=== PATIENT | male | born 1980 | race African-American/Black ===

== ENCOUNTER 2018-05-23 11:52 | Inpatient (IN) | payer BC ==
[~2018-05-23] VITALS: Ht 188 cm; Wt 86.2 kg
[2018-05-23] MEDS ORDERED: NKM (12:17)
[2018-05-23 12:20] VITALS: BP 116/79
[2018-05-23] MEDS ORDERED: Piperacillin/Tazobactam 3.375 GM in NS 110 ML IVPB ONE (13:00)
--- NOTE | 2018-05-23 13:24 | Emergency Room Report ---
History of Present Illness General Chief Complaint: Skin Rash/Abscess Source: Patient Present Illness HPI Patient sense with worsening fullness redness and discharge from the buttock area Patient has had these symptoms before in the past however over the past few days the have appear to worsen Questionable low-grade fevers denies any chest pain or shortness of breath He feels that there are some areas involving the lower scrotal region as well Denies any focal weakness and eyes any neck pain or photophobia patient has seen significant discharge from the regions Allergies: Coded Allergies: VANCOMYCIN (Verified Adverse Reaction, Unknown, 05/23/18) breakouts and cheek Patient History Past Medical History: see triage record Pertinent Family History: none Reviewed Nursing Documentation: PMH: Agreed; PSxH: Agreed Nursing Documentation-PMH Past Medical History: No History, Except For Review of Systems All Other Systems: negative except mentioned in HPI Physical Exam Vital Signs Date Time Temp Pulse Resp B/P (MAP) Pulse Ox O2 Delivery O2 Flow Rate FiO2 05/23/18 12:10 97.9 99 18 116/79 98 Room Air 97.9 Sp02 EP Interpretation: reviewed, normal General Appearance: no apparent distress Head: normocephalic, atraumatic Eyes: bilateral eye PERRL, bilateral eye EOMI ENT: hearing grossly normal, normal pharynx, TMs + canals normal, uvula midline Neck: full range of motion, supple, no meningismus, no bony tend Respiratory: lungs clear, normal breath sounds, no rhonchi, no respiratory distress, no retraction, no accessory muscle use Cardiovascular #1: normal peripheral pulses, regular rate, rhythm, no edema, no gallop, no JVD, no murmur Gastrointestinal: normal bowel sounds, non tender, soft, no mass, no organomegaly, non-distended, no guarding, no hernia, no pulsatile mass, no rebound Genitourinary: no CVA tenderness Musculoskeletal: normal inspection Neurologic: oriented x3, responsive, press feeder broomcorn III-XII nml as tested, motor strength/ tone normal, sensory intact Psychiatric: mood/affect normal Skin: other - Significant areas of pustules and abscess formation bilateral buttock region, erythema and fluctuance palpable, there is some increased fullness radiating towards the lower testicular region as well Lymphatic: no adenopathy Medical Decision Making Diagnostic Impression: Primary Impression: Abscess Additional Impression: Cellulitis ER Course Patient has significant findings in the buttock area Evidence of increased fluctuance and abscess formations on multiple areas Increased erythema and discomfort on palpation Blood work is initiated with IV hydration and broad-spectrum antibiotics white blood cell count is elevated Patient requiring admission for further inpatient care and specialty consultation Labs Test 05/23/18 13:30 05/23/18 21:10 05/24/18 10:45 White Blood Count 15.2 K/UL (4.8-10.8) Red Blood Count 4.42 M/UL (4.70-6.10) Hemoglobin 10.0 G/DL (14.2-18.0) Hematocrit 32.8 % (42.0-52.0) Mean Corpuscular Volume 74 FL (80-99) Mean Corpuscular Hemoglobin 22.6 PG (27.0-31.0) Mean Corpuscular Hemoglobin Concent 30.5 G/DL (32.0-36.0) Red Cell Distribution Width 14.8 % (11.6-14.8) Platelet Count 546 K/UL (150-450) Mean Platelet Volume 5.0 FL (6.5-10.1) Neutrophils (%) (Auto) 70.0 % (45.0-75.0) Lymphocytes (%) (Auto) 16.6 % (20.0-45.0) Monocytes (%) (Auto) 6.7 % (1.0-10.0) Eosinophils (%) (Auto) 6.4 % (0.0-3.0) Basophils (%) (Auto) 0.4 % (0.0-2.0) Prothrombin Time 11.0 SEC (9.30-11.50) Prothromb Time International Ratio 1.0 (0.9-1.1) Activated Partial Thromboplast Time 26 SEC (23-33) Sodium Level 135 MMOL/L (136-145) Potassium Level 3.9 MMOL/L (3.5-5.1) Chloride Level 100 MMOL/L (98-107) Carbon Dioxide Level 30 MMOL/L (21-32) Anion Gap 5 mmol/L (5-15) Blood Urea Nitrogen 8 mg/dL (7-18) Creatinine 0.8 MG/DL (0.55-1.30) Estimat Glomerular Filtration Rate > 60 mL/min (>60) Glucose Level 86 MG/DL (74-106) Lactic Acid Level 1.70 mmol/L (0.4-2.0) Calcium Level 10.4 MG/DL (8.5-10.1) Urine Color Pale yellow Urine Appearance Clear Urine pH 8 (4.5-8.0) Urine Specific [place] 1.010 (1.005-1.035) Urine Protein Negative (NEGATIVE) Urine Glucose (UA) Negative (NEGATIVE) Urine Ketones Negative (NEGATIVE) Urine Blood Negative (NEGATIVE) Urine Nitrite Negative (NEGATIVE) Urine Bilirubin Negative (NEGATIVE) Urine Urobilinogen Normal MG/DL (0.0-1.0) Urine Leukocyte Esterase Negative (NEGATIVE) Urine RBC 0-2 /HPF (0 - 0) Urine WBC 0-2 /HPF (0 - 0) Urine Squamous Epithelial Cells Occasional /LPF Urine Bacteria None /HPF (NONE) Stool Occult Blood Negative (NEGATIVE) Rhythm Strip Diag. Results EP Interpretation: yes Rate: 67 Rhythm: NSR, no PVC's, no ectopy Last Vital Signs Date Time Temp Pulse Resp B/P (MAP) Pulse Ox O2 Delivery O2 Flow Rate FiO2 05/23/18 12:10 97.9 99 18 116/79 98 Room Air 97.9 Status: improved Disposition: ADMITTED INPATIENT Condition: Serious LarrychristinaWillis DO May 23, 2018 13:24
[2018-05-23 13:45] LABS: BASOPHILS % (AUTO) 0.4 % (0.0-2.0); EOSINOPHILS % (AUTO) 6.4 % (0.0-3.0); HEMATOCRIT 32.8 % (42.0-52.0); LYMPHOCYTES % (AUTO) 16.6 % (20.0-45.0); MEAN CORPUSCULAR VOLUME 74 FL (80-99); MONOCYTES % (AUTO) 6.7 % (1.0-10.0); PLATELET COUNT 546 K/UL (150-450); RED BLOOD COUNT 4.42 M/UL (4.70-6.10); RED CELL DISTRIBUTION WIDTH 14.8 % (11.6-14.8); WHITE BLOOD COUNT 15.2 K/UL (4.8-10.8)
[2018-05-23 13:54] LABS: ANION GAP 5 mmol/L (5-15); BLOOD UREA NITROGEN 8 mg/dL (7-18); CALCIUM 10.4 MG/DL (8.5-10.1); CARBON DIOXIDE 30 MMOL/L (21-32); CHLORIDE 100 MMOL/L (98-107); CREATININE 0.8 MG/DL (0.55-1.30); POTASSIUM 3.9 MMOL/L (3.5-5.1); SODIUM 135 MMOL/L (136-145)
[2018-05-23] MEDS ORDERED: Morphine Sulfate 4mg/ml Inj (IV USE ONLY) IVP ONE (14:00)
[2018-05-23 14:20] VITALS: BP 123/75
[2018-05-23 15:59] VITALS: BP 135/72
--- NOTE | 2018-05-23 16:01 | History and Physical ---
History of Present Illness General Date patient seen: May 23, 2018 Time patient seen: 13:45 Reason for Hospitalization: Skin Rash/Abscess Present Illness HPI 38 y/o man with no significant history presents to the ER for worsening rash, pain and discharge from gluteal area. He states that his rash is to his buttocks and groin near the scrotum but has been worsening in his gluteal region. He has noticed foul smelling yellow discharge from the area recently. +/ - fevers. + pain. Has been hospitalized for infections in the area in the past. Denies any periop or postop complications from the anesthesia. Reports being able to ambulate 4 blocks and a flight of stairs without any chest pain or SOB. Denies any cardiac history. Currently, denies chest pain, sob, f/c, d/c, abdominal pain, n/v. Denies alcohol, tobacco or illicit drug use. PMH:Gluteal abscess/infection PSxH: None Social Hx: lives at home w/ family. denies alcohol, tobacco, or illicit drug use Family Hx: reviewed by me; not pertinent for this encounter Allergies: Coded Allergies: VANCOMYCIN (Verified Adverse Reaction, Unknown, 05/23/18) breakouts and cheek Medication History Scheduled No Known Medications* (NKM - No Known Medications*), 0 ., (Reported) Patient History History Provided By: Patient Healthcare decision maker Resuscitation status Advanced Directive on File Review of Systems Constitutional: Reports: weakness Eye: Reports: no symptoms ENT: Reports: no symptoms Respiratory: Reports: no symptoms Cardiovascular: Reports: no symptoms Gastrointestinal: Reports: other Genitourinary: Reports: no symptoms Musculoskeletal: Reports: no symptoms Skin: Reports: rash, change in color, lesions Psychiatric: Reports: no symptoms Neurological: Reports: no symptoms Endocrine: Reports: no symptoms Hematologic/Lymphatic: Reports: no symptoms All Other Systems: negative except mentioned in HPI ROS Narrative gluteal pain Physical Exam General Appearance: no apparent distress, alert, thin Lines, tubes and drains: peripheral HEENT: normocephalic, atraumatic, anicteric, EOMI Neck: non-tender Respiratory/Chest: lungs clear Breasts: no masses Cardiovascular/Chest: normal peripheral pulses, normal rate, regular rhythm Abdomen: normal bowel sounds, soft Genitourinary/Rectal: other - intragluteal cleft area with open wounds with foul smelling yellow purelent drainage and surrounding erythema; + tenderness Extremities: normal range of motion Skin Exam: normal pigmentation, warm/dry 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 grossly normal, alert, oriented x 3 Lymphatic: anterior cervical, posterior cervical (L) Musculoskeletal: normal muscle bulk Last 24 Hour Vital Signs Date Time Temp Pulse Resp B/P (MAP) Pulse Ox O2 Delivery O2 Flow Rate FiO2 05/23/18 14:20 98.0 78 15 123/75 100 Room Air 98.0 05/23/18 12:20 97.9 18 116/79 98 Room Air 97.9 05/23/18 12:10 97.9 99 18 116/79 98 Room Air 97.9 Laboratory Tests Test 05/23/18 13:30 White Blood Count 15.2 K/UL (4.8-10.8) H Red Blood Count 4.42 M/UL (4.70-6.10) L Hemoglobin 10.0 G/DL (14.2-18.0) L Hematocrit 32.8 % (42.0-52.0) L Mean Corpuscular Volume 74 FL (80-99) L Mean Corpuscular Hemoglobin 22.6 PG (27.0-31.0) L Mean Corpuscular Hemoglobin Concent 30.5 G/DL (32.0-36.0) L Red Cell Distribution Width 14.8 % (11.6-14.8) Platelet Count 546 K/UL (150-450) H Mean Platelet Volume 5.0 FL (6.5-10.1) L Neutrophils (%) (Auto) 70.0 % (45.0-75.0) Lymphocytes (%) (Auto) 16.6 % (20.0-45.0) L Monocytes (%) (Auto) 6.7 % (1.0-10.0) Eosinophils (%) (Auto) 6.4 % (0.0-3.0) H Basophils (%) (Auto) 0.4 % (0.0-2.0) Prothrombin Time 11.0 SEC (9.30-11.50) Prothromb Time International Ratio 1.0 (0.9-1.1) Activated Partial Thromboplast Time 26 SEC (23-33) Sodium Level 135 MMOL/L (136-145) L Potassium Level 3.9 MMOL/L (3.5-5.1) Chloride Level 100 MMOL/L (98-107) Carbon Dioxide Level 30 MMOL/L (21-32) Anion Gap 5 mmol/L (5-15) Blood Urea Nitrogen 8 mg/dL (7-18) Creatinine 0.8 MG/DL (0.55-1.30) Estimat Glomerular Filtration Rate > 60 mL/min (>60) Glucose Level 86 MG/DL (74-106) Lactic Acid Level 1.70 mmol/L (0.4-2.0) Calcium Level 10.4 MG/DL (8.5-10.1) H Height (Feet): 6 Height (Inches): 2.00 Weight (Pounds): 172 Assessment/Plan Status: not improved, hypovolemia Assessment/Plan (1) Hidradenitis Gluteal abscess/infection/cellulitis open wound, draining purulent fluid signs of infection on labs (leukocytosis) Lactic acid slightly elevated 2) Anemia Unclear etiology check iron studies 3)Hyponatremia Likely secondary to hypovolemia IVF's Assessment/Plan - Admit to inpatient - Plastic surgery, Dr. Dixon, consulted - EKG pending - CXR pending - CBC, CMP, coags reviewed - Zosyn ordered in ER- will continue - IVF'a given signs of dehydration on labs (hyponatremia, hemoconcentration) - NPO after midnight - DVT ppx: SCDs - Full Code If patient is required to have surgery, based on the patient's medical history, and other available ancillary data, the patient is a LOW risk for an INTERMEDIATE risk procedure. Per the most recent ACC/AHA guidelines, the patient does not need any further cardiopulmonary testing prior to the procedure and there do not appear to be any clear medical contraindications to proceeding with the proposed procedure. Dispo: Once the patient is stable to the leave the hospital, I anticipate the patient will likely be discharged to the following environment: home with I spent 72 minutes on this patient's case, and 42 minutes were dedicated to counseling and/or care coordination. Discussed with patient, nursing staff, SW/ CM, surgery, and ER physician regarding clinical status, treatment course, and disposition planning. Duke Lovell M.D. May 23, 2018 16:01
[2018-05-23 16:18] VITALS: BP 129/78
[2018-05-23] MEDS ORDERED: Norco 5mg/325mg tab ORAL PRN (17:57)
[2018-05-23] MEDS ORDERED: Morphine Sulfate 2mg/ml Inj IVP PRN (17:57)
[2018-05-23] MEDS: Piperacillin/Tazobactam 3.375 GM in NS 110 ML IVPB SCH (19:56)
[2018-05-23 20:00] VITALS: BP 148/72
[2018-05-23 21:38] LABS: APPEARANCE,URINE CLEAR; BILIRUBIN, URINE NEGATIVE (NEGATIVE); COLOR,URINE PALE YELLOW; GLUCOSE, URINE (UA) NEGATIVE (NEGATIVE); KETONES,URINE NEGATIVE (NEGATIVE); LEUKOCYTE ESTERASE ,URINE NEGATIVE (NEGATIVE); NITRITE,URINE NEGATIVE (NEGATIVE); PH,URINE 8 (4.5-8.0); PROTEIN,URINE NEGATIVE (NEGATIVE); UROBILINOGEN,URINE NORMAL MG/DL (0.0-1.0)
[2018-05-24] VITALS (15 sets, daily range): BP systolic 98–132; BP diastolic 51–85
[2018-05-24] MEDS: Piperacillin/Tazobactam 3.375 GM in NS 110 ML IVPB SCH ×3 (04:25→20:32)
--- NOTE | 2018-05-24 12:35 | Pre-Procedure Note/Attestation ---
Pre-Procedure Note/Attestation Complete Prior to Procedure Planned Procedure: bilateral Procedure Narrative: Bilateral groin, buttock, and scrotal debridement with flap elevation Attestation I attest that I discussed the nature of the procedure; its benefits; risks and complications; and alternatives (and the risks and benefits of such alternatives ), prior to the procedure, with the patient (or the patient's legal senior human resources representative). I attest that, if there was a reasonable possibility of needing a blood transfusion, the patient (or the patient's legal senior human resources representative) was given the [facility] standardized written summary, pursuant to the Connor [place]kar[place] Blood Safety Act ([place] Health and Safety Code # 1645, as amended). I attest that I re-evaluated the patient just prior to the surgery and that there has been no change in the patient's H&P, except as documented below: RENEA MAYS May 24, 2018 12:35
[2018-05-24] MEDS ORDERED: Zemuron 50mg/5ml Inj IV ONE (12:45)
[2018-05-24] MEDS ORDERED: fentaNYL 100 mcg/2 mL IV ONE (12:48)
[2018-05-24] MEDS ORDERED: Propofol 200mg/20ml IV ONE (12:48)
[2018-05-24] MEDS ORDERED: Midazolam 2mg/2ml Inj ONE (12:48)
[2018-05-24] MEDS ORDERED: Lidocaine 1% MPF 10mg/ml 5ml ONE (12:48)
--- NOTE | 2018-05-24 12:55 | Anethesia Preoperative Eval ---
Anesthesia Pre-op PMH/ROS General Date of Evaluation: May 24, 2018 Anesthesiologist: Cedric ASA Score: ASA 2 Mallampati Score Class I : Soft palate, uvula, fauces, pillars visible Class II: Soft palate, uvula, fauces visible Class III: Soft palate, base of uvula visible Class IV: Only hard plate visible Mallampati Classification: Class I Surgeon: Zack Diagnosis: HS Surgical Procedure: Bilateral groin I&D Anesthesia History: none Family History: no anesthesia problems Allergies: Coded Allergies: VANCOMYCIN (Verified Adverse Reaction, Unknown, 05/23/18) breakouts and cheek Medications: see eMAR Past Medical History Cardiovascular: Denies: HTN, CAD, [place], valve dz, arrhythmia, other Pulmonary: Denies: asthma, COPD, CHETAN, other Gastrointestinal/Genitourinary: Denies: GERD, CRI, ESRD, other Neurologic/Psychiatric: Denies: dementia, CVA, depression/anxiety, TIA, other Endocrine: Denies: DM, hypothyroidism, steroids, other HEENT: Denies: cataract (L), cataract (R), glaucoma, HUGHES (L), HUGHES (R), other Hematology/Immune: Denies: anemia, DVT, bleeding disorder, other Musculoskeletal/Integumentary: Denies: OA, RA, DJD, DDD, edema, other PSxH Narrative: multiple I&Ds Anesthesia Pre-op Phys. Exam Physician Exam Last Vital Signs Date Time Temp Pulse Resp B/P (MAP) Pulse Ox O2 Delivery O2 Flow Rate FiO2 05/24/18 12:29 98.1 68 18 108/57 (74) 97 98.1 05/24/18 09:00 Room Air Constitutional: NAD Cardiovascular: RRR Respiratory: CTA Airway Exam Mallampati Score: Class I MO: full ROM: full Teeth: intact Anesthesia Pre-op A/P Labs Hematology Test 05/23/18 13:30 White Blood Count 15.2 K/UL (4.8-10.8) H Red Blood Count 4.42 M/UL (4.70-6.10) L Hemoglobin 10.0 G/DL (14.2-18.0) L Hematocrit 32.8 % (42.0-52.0) L Mean Corpuscular Volume 74 FL (80-99) L Mean Corpuscular Hemoglobin 22.6 PG (27.0-31.0) L Mean Corpuscular Hemoglobin Concent 30.5 G/DL (32.0-36.0) L Red Cell Distribution Width 14.8 % (11.6-14.8) Platelet Count 546 K/UL (150-450) H Mean Platelet Volume 5.0 FL (6.5-10.1) L Neutrophils (%) (Auto) 70.0 % (45.0-75.0) Lymphocytes (%) (Auto) 16.6 % (20.0-45.0) L Monocytes (%) (Auto) 6.7 % (1.0-10.0) Eosinophils (%) (Auto) 6.4 % (0.0-3.0) H Basophils (%) (Auto) 0.4 % (0.0-2.0) Coagulation Test 05/23/18 13:30 Prothrombin Time 11.0 SEC (9.30-11.50) Prothromb Time International Ratio 1.0 (0.9-1.1) Activated Partial Thromboplast Time 26 SEC (23-33) Chemistry Test 05/23/18 13:30 Sodium Level 135 MMOL/L (136-145) L Potassium Level 3.9 MMOL/L (3.5-5.1) Chloride Level 100 MMOL/L (98-107) Carbon Dioxide Level 30 MMOL/L (21-32) Anion Gap 5 mmol/L (5-15) Blood Urea Nitrogen 8 mg/dL (7-18) Creatinine 0.8 MG/DL (0.55-1.30) Estimat Glomerular Filtration Rate > 60 mL/min (>60) Glucose Level 86 MG/DL (74-106) Lactic Acid Level 1.70 mmol/L (0.4-2.0) Calcium Level 10.4 MG/DL (8.5-10.1) H Risk Assessment & Plan Assessment: ASA II Plan: GA Status Change Before Surgery: No Pre-Antibiotics Drug: Marina Hutchison MD May 24, 2018 12:55
[2018-05-24] MEDS ORDERED: LR 1000ml 1,000 ML IVLG SCH (12:57)
[2018-05-24] MEDS ORDERED: NeoSporin Gu Irrig 1ml Amp IRRIG ONE (12:58)
[2018-05-24] MEDS ORDERED: Lidocaine 1% 10mg/ml/Epi 0.005mg/ml 30ml vial INJ ONE (12:58)
[2018-05-24] MEDS ORDERED: Bacitracin 50000 Units Vial ONE (12:58)
[2018-05-24] MEDS ORDERED: Sterile Water Irrig 1000ml IRRIG ONE (13:00)
[2018-05-24] MEDS ORDERED: fentaNYL 100 mcg/2 mL IV PRN (13:00)
[2018-05-24] MEDS ORDERED: LR 1000ml ONE (13:00)
[2018-05-24] MEDS ORDERED: Midazolam 2mg/2ml Inj IVP PRN (13:00)
[2018-05-24] MEDS ORDERED: Labetalol 5mg/ml 20ml vial IV PRN (13:00)
[2018-05-24] MEDS ORDERED: NS Irrig 1000ml ONE (13:00)
[2018-05-24] MEDS ORDERED: Hydromorphone 0.5mg/0.5ml inj IVP PRN (13:00)
[2018-05-24] MEDS ORDERED: LORazepam Inj 2mg/ml 1ml IV PRN (13:00)
[2018-05-24] MEDS ORDERED: DiphenhydrAMINE 50mg/ml Inj IVP PRN (13:00)
[2018-05-24] MEDS ORDERED: Lidocaine 1% 10mg/ml/EPI 0.01mg/ml 50ml INJ ONE (14:14)
[2018-05-24] MEDS ORDERED: Surgicel 4in x 8in TOPIC ONE (14:15)
[2018-05-24] MEDS ORDERED: PCA HYDROmorphone 1mg/ml 30 ML IV PRN (14:30)
--- NOTE | 2018-05-24 15:08 | Immediate Post-Op Evaluation ---
Immediate Post-Op Evalulation Immediate Post-Op Evalulation Procedure: Stage 1 debreiedment of bilateral groin wound Date of Evaluation: May 24, 2018 Time of Evaluation: 15:09 IV Fluids: 1.4L Blood Products: 0 Estimated Blood Loss: min Urinary Output: 0 Blood Pressure Systolic: 109 Blood Pressure Diastolic: 62 Pulse Rate: 84 Respiratory Rate: 16 O2 Sat by Pulse Oximetry: 100 Temperature (Fahrenheit): 97 Pain Score (1-10): 0 Nausea: No Vomiting: No Complications 0 Patient Status: awake, reacts, patent, none Hydration Status: adequate Drug: zosyn Given Within 1 Hr of Incision: Yes Marina Madrid MD May 24, 2018 15:08
--- NOTE | 2018-05-24 17:54 | General Progress Note ---
Assessment/Plan Status: not improved, unchanged Status Narrative 38 yo man with hidradenitis and gluteal/scrotal abscesses with signs of systemic infection Assessment/Plan (1) Hidradenitis Gluteal abscess/infection/cellulitis open wound, draining purulent fluid signs of infection on labs (leukocytosis) Lactic acid slightly elevated Plastic surgery evaluation appreciated- to OR today for debridement of infected wounds/gluteal abscess continue broad spectrum IV antibiotics Aggressive IVF's Pain control 2) Anemia, mild, microcytic Unclear etiology check iron studies follow postop 3)Hyponatremia Likely secondary to hypovolemia IVF's 4) Preoperative clearance -clear for OR -EKG reviewed and unremarkable -see H&P for full details DVT Prophylaxis: scd's Code status: full Hospital Classification declaration: Based on this initial evaluation, and depending on the patient's clinical course, I anticipate that this patient will require hospitalization for 2-3 days. Disposition: Once the patient is stable to leave the hospital, I anticipate the patient will likely be discharged to the following environment:Home with HH I spent 45 minutes on this patient's case, and 23 minutes was dedicated to counseling and/or care coordination. Time of note may not reflect time of encounter. Subjective Date patient seen: May 24, 2018 Time patient seen: 15:22 ROS Limited/Unobtainable: No Constitutional: Reports: no symptoms HEENT: Reports: no symptoms Cardiovascular: Reports: no symptoms Respiratory: Reports: no symptoms Gastrointestinal/Abdominal: Reports: no symptoms Genitourinary: Reports: no symptoms Neurologic/Psychiatric: Reports: no symptoms Endocrine: Reports: no symptoms Hematologic/Lymphatic: Reports: no symptoms Allergies: Coded Allergies: VANCOMYCIN (Verified Adverse Reaction, Unknown, 05/23/18) breakouts and cheek All Systems: reviewed and negative except above Subjective Events of overnight noted Chart reviewed Patient NPO for OR today No complaints Objective Last 24 Hour Vital Signs Date Time Temp Pulse Resp B/P (MAP) Pulse Ox O2 Delivery O2 Flow Rate FiO2 05/24/18 17:00 96.4 72 18 120/68 (85) 98 96.4 05/24/18 16:26 98.0 76 14 127/62 100 Nasal Cannula 3 98.0 05/24/18 16:20 77 15 127/64 100 Nasal Cannula 3 05/24/18 16:20 19 05/24/18 16:05 16 05/24/18 16:05 97.0 05/24/18 16:05 74 16 117/70 100 Nasal Cannula 3 05/24/18 15:50 18 05/24/18 15:50 86 15 118/72 100 Nasal Cannula 3 05/24/18 15:35 86 18 126/73 100 Nasal Cannula 3 05/24/18 15:35 18 05/24/18 15:25 81 15 121/81 100 Nasal Cannula 3 05/24/18 15:14 84 19 132/85 100 Nasal Cannula 3 05/24/18 15:09 90 13 114/72 100 Simple Mask 6 05/24/18 15:08 206.6 84 16 100 05/24/18 15:04 97.0 84 16 109/62 100 Simple Mask 6 97.0 05/24/18 12:29 98.1 68 18 108/57 (74) 97 98.1 05/24/18 09:00 Room Air 05/24/18 08:38 97.9 72 18 98/51 (67) 98 97.9 05/24/18 04:00 98.2 71 18 121/63 (82) 100 98.2 05/24/18 00:00 97.7 69 19 124/61 (82) 98 97.7 05/23/18 21:00 Room Air 05/23/18 20:00 97.9 78 16 148/72 (97) 100 97.9 Intake and Output 05/23/18 05/24/18 19:00 07:00 Intake Total 1350 ml 1422.5 ml Output Total 1000 ml Balance 1350 ml 422.5 ml Intake Oral 240 ml 480 ml IV Total 1110 ml 942.5 ml Output Urine Total 1000 ml # Voids 1 Laboratory Tests 05/23/18 21:10: Urine Color Pale yellow, Urine Appearance Clear, Urine pH 8, Urine Specific [place] 1.010, Urine Protein Negative, Urine Glucose (UA) Negative, Urine Ketones Negative, Urine Blood Negative, Urine Nitrite Negative, Urine Bilirubin Negative, Urine Urobilinogen Normal, Urine Leukocyte Esterase Negative, Urine RBC 0-2H, Urine WBC 0-2, Urine Squamous Epithelial Cells Occasional, Urine Bacteria None 05/24/18 10:45: Stool Occult Blood Negative Height (Feet): 6 Height (Inches): 2.00 Weight (Pounds): 172 General Appearance: WD/WN, no apparent distress, thin EENT: PERRL/EOMI, normal ENT inspection Neck: non-tender, supple Cardiovascular: normal peripheral pulses, normal rate Respiratory/Chest: chest wall non-tender, lungs clear Abdomen: soft Pelvis: lesions Genitourinary/Rectal: other - open wounds in gluteal cleft, draining purulent fluid Edema: no edema noted Arm (L), no edema noted Arm (R), no edema noted Leg (L), no edema noted Leg (R), no edema noted Pedal (L), no edema noted Pedal (R) Neurologic: alert, oriented x 3 Duke Lovell M.D. May 24, 2018 17:54
[2018-05-24] MEDS ORDERED: Rate Change PCA 1 Each MISC PRN (18:00)
--- NOTE | 2018-05-24 18:30 | Consultation ---
DATE OF CONSULTATION: 05/24/2018 CONSULTING PHYSICIAN: Miguel Dixon M.D. ADMITTING PHYSICIAN: Duke Lovell M.D. HISTORY OF PRESENT ILLNESS: This is a 38-year-old male, admitted to the emergency room for an extreme pain and drainage with tenderness from his bilateral gluteal and groin region secondary to infected hidradenitis. The patient was admitted, started on IV antibiotics, was noted to have a leukocytosis and needs to be seen in consultation for surgical treatment. PAST MEDICAL HISTORY: Significant for hidradenitis. PAST SURGICAL HISTORY: None. ALLERGIES: Include vancomycin. MEDICATIONS: None. PHYSICAL EXAMINATION: GENERAL: The patient is alert and oriented. HEART: Regular rhythm. ABDOMEN: Soft, nontender, and nondistended. The patient is in mild discomfort secondary to multiple abscesses in his bilateral groin and buttock region extending to the pilonidal region in the lower sacrum. He also has an abscess in his scrotum. LABORATORY AND DIAGNOSTIC DATA: WBC is 15.4. ASSESSMENT AND PLAN: This is a 38-year-old male with advanced hidradenitis with leukocytosis. He will require a staged approach with first radical debridement of the infected tissue followed by several days of IV antibiotics and open wound care and that would then be followed by wound covered with flap advancement closure of his wounds. He understands the plan and agrees to proceed. Miguel Dixon M.D. DR: BRANDON JOB#: [id number] CC:
--- NOTE | 2018-05-24 18:44 | Cardiology Report ---
APPROVED REPORT EKG Measurement Heart [id number] Normal sinus rhythm Normal ECG
--- NOTE | 2018-05-24 18:45 | Operative Note - Dictated ---
DATE OF OPERATION: 05/24/2018 PREOPERATIVE DIAGNOSIS: Bilateral groin lower buttock infected hidradenitis and infected scrotal base hidradenitis. POSTOPERATIVE DIAGNOSIS: Bilateral groin lower buttock infected hidradenitis and infected scrotal base hidradenitis. PROCEDURES: 1. Radical excision of left groin infected hidradenitis tissue. 2. Radical excision of right groin infected hidradenitis tissue. 3. Radical excision of inferior scrotal base infected hidradenitis tissue. 4. Medial thigh flap elevation for staged closure of left groin wound. 5. Medial thigh flap elevation for staged closure of right groin wound. 6. Scrotal flap elevation for staged closure of scrotal base wound. SURGEON: Miguel Dixon M.D. ELECTRICAL DESIGN TECHNOLOGIST: Areli Aragon M.D. ANESTHESIA: General. COMPLICATIONS: None. ESTIMATED BLOOD LOSS: Approximately 100 mL. DRAINS: None. SPECIMEN: Included 4 different specimens from the bilateral groin and scrotal base region. DISPOSITION: Stable to the recovery room. INDICATIONS FOR SURGERY: This is a 38-year-old, -[place] male, admitted for intractable pain and drainage from his perineal and groin region secondary to infected hidradenitis suppurativa. On admission, he had a leukocytosis with a white count of nearly 16. He was started on IV antibiotics and upon evaluation by me, I felt that he was an appropriate candidate for radical excision with a staged treatment of debridement followed by reconstruction as a separate operation. He understood the risks and benefits of surgery and agreed to proceed. DETAILS OF THE OPERATION: The patient was brought to the operating room and laid in the lithotomy position on the operating table. His bilateral groin, perineal and lower abdominal regions were prepped and draped in a sterile usual fashion. Preoperatively, the patient areas of were marked out with a surgical marking pen to include both groin and scrotal base areas and once this was done, we first began on the left groin by using a #10 blade to make the incision to radically excise the tissue all the way circumferentially using the knife and electrocautery was then used to radically remove the tissue down to the level of the adductor fascia. With the specimen removed, the wound that resulted was approximately 18 x 10 cm and clearly not amenable to primary closure. As such, the decision was taken to perform a medial thigh flap elevation for staged closure of the wound. The medial thigh flap was elevated based off of the perforators of the superficial femoral artery. Elevation was performed above the level of the adductor fascia with proximal and distal incisions made to fully mobilize the flap. In a similar fashion, the contralateral groin was approached with a #10 blade used to make the skin incision and electrocautery was then used to complete the radical incision all the way down the level of the adductor fascia, this resulted in a larger defect of approximately 22 x 11 cm and again clearly not amenable to primary closure. As such, a medial thigh flap was done on the other side was elevated on the right side as well with perforators off the superficial femoral artery perfusing this flap. Proximal and distal incisions were also made to fully mobilize the flap and the flap was elevated above the adductor fascia. Following this, we then proceeded to identify both testicles, protected them from the surgical knife and a #10 blade was then used to excise the area of infected hidradenitis within the scrotal base, this resulted in a defect that measured approximately 8 x 8 cm and also required elevation of a superior scrotal flap to allow for a tension-free repair. The scrotal flap was elevated just above the level of the tunica albuginea and it was noted that upon full elevation of the flap, the scrotal wound could be closed without any tension. Given the patient's leukocytosis, the amount of infection present in the surgical wound bed, of note, I shall also mention, we did come across a significant amount of pus within the wound. We felt that it would not be appropriate to perform definitive closure of the wound at this time. The patient will be continued on IV antibiotics. We will get dressing changes at the bedside with wet-to-dry dressings over the next 72 hours and will be brought back to the operating room on for closure of the scrotal wounds with scrotal flap and groin wounds will most likely be closed with a combination of medial thigh flap advancement and possible skin graft for the lower base by the buttock region, which may be necessary. We will have a discussion with the patient regarding these options and proceed based on that. Miguel Dixon M.D. DR: BRANDON JOB#: [id number] CC:
--- NOTE | 2018-05-24 18:47 | Cardiology Report ---
APPROVED REPORT EKG Measurement Heart [id number] Normal sinus rhythm Rightward axis Borderline ECG
[2018-05-24] MEDS: PCA shift volume MISC SCH (19:00)
[2018-05-24] MEDS ORDERED: PCA Education Pamphlet MISC ONE (20:00)
[2018-05-24] MEDS: Heparin 5000 units/ml inj SUBQ SCH (20:32)
[2018-05-24] MEDS ORDERED: Zolpidem 5mg tab ORAL PRN (21:00)
[2018-05-25] MEDS: Piperacillin/Tazobactam 3.375 GM in NS 110 ML IVPB SCH ×3 (03:58→20:27)
[2018-05-25 04:16] VITALS: BP 109/59
[2018-05-25] MEDS: PCA shift volume MISC SCH ×2 (07:12→19:00)
[2018-05-25 08:00] VITALS: BP 121/63
[2018-05-25] MEDS: Heparin 5000 units/ml inj SUBQ SCH ×2 (08:11→20:31)
--- NOTE | 2018-05-25 08:51 | Consultation ---
Consult Note Consult Note Hematology Consult Date patient seen: May 24, 2018 Time patient seen: 13:45 Reason for Hospitalization: Skin Rash/Abscess RFC: eval of anemia and leukoecytosis Present Illness HPI 38 y/o man with no significant history presents to the ER for worsening rash, pain and discharge from gluteal area. He states that his rash is to his buttocks and groin near the scrotum but has been worsening in his gluteal region. He has noticed foul smelling yellow discharge from the area recently. +/ - fevers. + pain. Has been hospitalized for infections in the area in the past. Denies any periop or postop complications from the anesthesia. Reports being able to ambulate 4 blocks and a flight of stairs without any chest pain or SOB. Denies any cardiac history. Currently, denies chest pain, sob, f/c, d/c, abdominal pain, n/v. Denies alcohol, tobacco or illicit drug use. Noted to have a high wbc and anemia and heme consulted. PMH:Gluteal abscess/infection PSxH: None Social Hx: lives at home w/ family. denies alcohol, tobacco, or illicit drug use Family Hx: reviewed by me; not pertinent for this encounter Allergies: Coded Allergies: VANCOMYCIN (Verified Adverse Reaction, Unknown, 05/23/18) breakouts and cheek Medication History Scheduled No Known Medications* (NKM - No Known Medications*), 0 ., (Reported) Resuscitation status Advanced Directive on File Review of Systems Constitutional: Reports: weakness Eye: Reports: no symptoms ENT: Reports: no symptoms Respiratory: Reports: no symptoms Cardiovascular: Reports: no symptoms Gastrointestinal: Reports: other Genitourinary: Reports: no symptoms Musculoskeletal: Reports: no symptoms Skin: Reports: rash, change in color, lesions Psychiatric: Reports: no symptoms Neurological: Reports: no symptoms Endocrine: Reports: no symptoms Hematologic/Lymphatic: Reports: no symptoms All Other Systems: negative except mentioned in HPI ROS Narrative gluteal pain Physical Exam General Appearance: no apparent distress, alert, thin Lines, tubes and drains: peripheral HEENT: normocephalic, atraumatic, anicteric, EOMI Neck: non-tender Respiratory/Chest: lungs clear Breasts: no masses Cardiovascular/Chest: normal peripheral pulses, normal rate, regular rhythm Abdomen: normal bowel sounds, soft Genitourinary/Rectal: other - intragluteal cleft area with open wounds with foul smelling yellow purelent drainage and surrounding erythema; + tenderness Extremities: normal range of motion Skin Exam: normal pigmentation, warm/dry Neurologic: home health provider II-XII grossly normal, alert, oriented x 3 Lymphatic: anterior cervical, posterior cervical (L) Musculoskeletal: normal muscle bulk Last 24 Hour Vital Signs Date Time Temp Pulse Resp B/P (MAP) Pulse Ox O2 Delivery O2 Flow Rate FiO2 05/25/18 08:27 Room Air 05/25/18 08:00 99.3 84 18 121/63 (82) 100 99.3 05/25/18 08:00 18 05/25/18 04:16 98.4 90 18 109/59 (76) 99 98.4 05/25/18 04:00 18 05/25/18 00:00 16 05/24/18 21:00 Room Air 05/24/18 20:14 97.2 84 18 115/66 (82) 100 97.2 05/24/18 20:00 18 05/24/18 17:00 96.4 72 18 120/68 (85) 98 96.4 05/24/18 16:26 98.0 76 14 127/62 100 Nasal Cannula 3 98.0 05/24/18 16:20 77 15 127/64 100 Nasal Cannula 3 05/24/18 16:20 19 05/24/18 16:05 16 05/24/18 16:05 97.0 05/24/18 16:05 74 16 117/70 100 Nasal Cannula 3 05/24/18 15:50 18 05/24/18 15:50 86 15 118/72 100 Nasal Cannula 3 05/24/18 15:35 86 18 126/73 100 Nasal Cannula 3 05/24/18 15:35 18 05/24/18 15:25 81 15 121/81 100 Nasal Cannula 3 05/24/18 15:14 84 19 132/85 100 Nasal Cannula 3 05/24/18 15:09 90 13 114/72 100 Simple Mask 6 05/24/18 15:08 206.6 84 16 100 05/24/18 15:04 97.0 84 16 109/62 100 Simple Mask 6 97.0 05/24/18 12:29 98.1 68 18 108/57 (74) 97 98.1 05/24/18 09:00 Room Air Laboratory Tests Test 05/23/18 13:30 White Blood Count 15.2 K/UL (4.8-10.8) H Red Blood Count 4.42 M/UL (4.70-6.10) L Hemoglobin 10.0 G/DL (14.2-18.0) L Hematocrit 32.8 % (42.0-52.0) L Mean Corpuscular Volume 74 FL (80-99) L Mean Corpuscular Hemoglobin 22.6 PG (27.0-31.0) L Mean Corpuscular Hemoglobin Concent 30.5 G/DL (32.0-36.0) L Red Cell Distribution Width 14.8 % (11.6-14.8) Platelet Count 546 K/UL (150-450) H Mean Platelet Volume 5.0 FL (6.5-10.1) L Neutrophils (%) (Auto) 70.0 % (45.0-75.0) Lymphocytes (%) (Auto) 16.6 % (20.0-45.0) L Monocytes (%) (Auto) 6.7 % (1.0-10.0) Eosinophils (%) (Auto) 6.4 % (0.0-3.0) H Basophils (%) (Auto) 0.4 % (0.0-2.0) Prothrombin Time 11.0 SEC (9.30-11.50) Prothromb Time International Ratio 1.0 (0.9-1.1) Activated Partial Thromboplast Time 26 SEC (23-33) Sodium Level 135 MMOL/L (136-145) L Potassium Level 3.9 MMOL/L (3.5-5.1) Chloride Level 100 MMOL/L (98-107) Carbon Dioxide Level 30 MMOL/L (21-32) Anion Gap 5 mmol/L (5-15) Blood Urea Nitrogen 8 mg/dL (7-18) Creatinine 0.8 MG/DL (0.55-1.30) Estimat Glomerular Filtration Rate > 60 mL/min (>60) Glucose Level 86 MG/DL (74-106) Lactic Acid Level 1.70 mmol/L (0.4-2.0) Calcium Level 10.4 MG/DL (8.5-10.1) H Height (Feet): 6 Height (Inches): 2.00 Weight (Pounds): 172 Assessment/Plan Assessment/Plan # Anemia of chronic disease -- results pending of workup, has been ordered --> Unclear etiology --> check iron studies, ferritin --> transfuse if needed in prep for surgery # Leukocytosis 2/2 infection/cellulitis is on abx --> monitor closely for improvement # Hidradenitis with gluteal abscess/infection/cellulitis, open wound, draining purulent fluid --> signs of infection on labs (leukocytosis) --> Lactic acid slightly elevated --> Dr. Miller consulted # Hyponatremia --> Likely secondary to hypovolemia --> IVF's GREATLY APPRECIATE CONSULTATION. Chris Quick MD May 25, 2018 08:51
--- NOTE | 2018-05-25 09:27 | 48 Hour Post Anesthesia Eval ---
Post Anesthesia Evaluation Procedure: Stage 1 debreiedment of bilateral groin wound Date of Evaluation: May 25, 2018 Time of Evaluation: 11:30 Blood Pressure Systolic: 121 0: 63 Pulse Rate: 84 Respiratory Rate: 18 Temperature (Fahrenheit): 99.3 O2 Sat by Pulse Oximetry: 100 Airway: patent Nausea: No Vomiting: No Hydration Status: adequate Cardiopulmonary Status: Stable Mental Status/LOC: patient returned to baseline Follow-up Care/Observations: As per surgery Post-Anesthesia Complications: No anesthetic complication Follow-up care needed: N/A Connor Andrea MD May 25, 2018 09:27
[2018-05-25 11:56] VITALS: BP 103/84
--- NOTE | 2018-05-25 13:17 | General Progress Note ---
Assessment/Plan Status: progressing Assessment/Plan (1) Hidradenitis Gluteal abscess/infection/cellulitis open wound, draining purulent fluid signs of infection on labs (leukocytosis) Lactic acid slightly elevated Plastic surgery evaluation appreciated- s/p extensive debridement of infected wounds/gluteal abscess yesterday 05/24 continue broad spectrum IV antibiotics Aggressive IVF's Pain control 2) Anemia Unclear etiology check iron studies Hematology consulted 3)Hyponatremia Likely secondary to hypovolemia IVF's DVT Prophylaxis: scd's Code status: full Hospital Classification declaration: Based on this initial evaluation, and depending on the patient's clinical course, I anticipate that this patient will require hospitalization for 2-3 days. Disposition: Once the patient is stable to leave the hospital, I anticipate the patient will likely be discharged to the following environment:Home with HH I spent 45 minutes on this patient's case, and 23 minutes was dedicated to counseling and/or care coordination. Time of note may not reflect time of encounter. Subjective Date patient seen: May 25, 2018 Time patient seen: 14:22 ROS Limited/Unobtainable: No Constitutional: Reports: no symptoms, malaise HEENT: Reports: no symptoms Cardiovascular: Reports: no symptoms Respiratory: Reports: no symptoms Gastrointestinal/Abdominal: Reports: no symptoms Genitourinary: Reports: pain Neurologic/Psychiatric: Reports: no symptoms Endocrine: Reports: no symptoms Hematologic/Lymphatic: Reports: no symptoms Allergies: Coded Allergies: VANCOMYCIN (Verified Adverse Reaction, Unknown, 05/23/18) breakouts and cheek All Systems: reviewed and negative except above Subjective Events of overnight noted Chart reviewed pt s/p extensive debridement by Plastics Notes pain and discomfort in area controlled with pain meds Objective Last 24 Hour Vital Signs Date Time Temp Pulse Resp B/P (MAP) Pulse Ox O2 Delivery O2 Flow Rate FiO2 05/25/18 11:56 98.1 86 18 103/84 (90) 96 98.1 05/25/18 11:56 18 05/25/18 09:27 210.7 84 18 100 05/25/18 08:27 Room Air 05/25/18 08:00 99.3 84 18 121/63 (82) 100 99.3 05/25/18 08:00 18 05/25/18 04:16 98.4 90 18 109/59 (76) 99 98.4 05/25/18 04:00 18 05/25/18 00:00 16 05/24/18 21:00 Room Air 05/24/18 20:14 97.2 84 18 115/66 (82) 100 97.2 05/24/18 20:00 18 05/24/18 17:00 96.4 72 18 120/68 (85) 98 96.4 05/24/18 16:26 98.0 76 14 127/62 100 Nasal Cannula 3 98.0 05/24/18 16:20 77 15 127/64 100 Nasal Cannula 3 05/24/18 16:20 19 05/24/18 16:05 16 05/24/18 16:05 97.0 05/24/18 16:05 74 16 117/70 100 Nasal Cannula 3 05/24/18 15:50 18 05/24/18 15:50 86 15 118/72 100 Nasal Cannula 3 05/24/18 15:35 86 18 126/73 100 Nasal Cannula 3 05/24/18 15:35 18 05/24/18 15:25 81 15 121/81 100 Nasal Cannula 3 05/24/18 15:14 84 19 132/85 100 Nasal Cannula 3 05/24/18 15:09 90 13 114/72 100 Simple Mask 6 05/24/18 15:08 206.6 84 16 100 05/24/18 15:04 97.0 84 16 109/62 100 Simple Mask 6 97.0 Intake and Output 05/24/18 05/25/18 19:00 07:00 Intake Total 1777.5 ml 1537.5 ml Output Total 30 ml 1400 ml Balance 1747.5 ml 137.5 ml Intake Oral 720 ml IV Total 1777.5 ml 817.5 ml Output Urine Total 1400 ml Estimated Blood Loss 30 ml # Voids 5 Height (Feet): 6 Height (Inches): 2.00 Weight (Pounds): 172 General Appearance: alert, mild distress, thin EENT: PERRL/EOMI, normal ENT inspection, TMs normal Neck: non-tender, supple Cardiovascular: normal rate, regular rhythm Respiratory/Chest: chest wall non-tender, lungs clear Abdomen: non tender, soft Pelvis: discharge, lesions, other - dressings c/d/i Extremities: normal range of motion Edema: no edema noted Arm (L), no edema noted Arm (R), no edema noted Leg (L), no edema noted Leg (R) 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 May 25, 2018 13:17
--- NOTE | 2018-05-25 13:59 | General Progress Note ---
Progress Note Progress Note Pt seen and examined. POD # 1 doing well. Dressings in place and pt with minimal pain. Plan for OR on . RENEA Martinez MD May 25, 2018 13:59
--- NOTE | 2018-05-25 14:00 | General Progress Note ---
Assessment/Plan Status: stable Assessment/Plan # Anemia of chronic disease, unclear etiology. Hgb on admission was 10.0 --> Anemia w/u has been reviewed. Will trend CBC as needed. --> Continue to monitor for stability --> Hgb goal above 7. Transfuse as needed. # Leukocytosis 2/2 infection/cellulitis is on abx --> Continue to monitor WBC for improvement # Thrombocytosis. Reactive process and will improve. --> if plt count >600k, consider CML --> Continue to closely monitor for improvement --> Current PLT of 546 # Hidradenitis with gluteal abscess/infection/cellulitis, open wound, draining purulent fluid. --> signs of infection on labs (leukocytosis) --> Lactic acid slightly elevated --> Dr. Miller consulted # Hyponatremia. --> Likely secondary to hypovolemia --> IVF's The time the note was entered does not necessarily correspond to the time the patient was seen. Subjective Date patient seen: May 25, 2018 ROS Limited/Unobtainable: Yes Hematologic/Lymphatic: Reports: anemia Allergies: Coded Allergies: VANCOMYCIN (Verified Adverse Reaction, Unknown, 05/23/18) breakouts and cheek All Systems: reviewed and negative except above Subjective Pt awake and alert. Pt for OR today. Objective Last 24 Hour Vital Signs Date Time Temp Pulse Resp B/P (MAP) Pulse Ox O2 Delivery O2 Flow Rate FiO2 05/25/18 11:56 98.1 86 18 103/84 (90) 96 98.1 05/25/18 11:56 18 05/25/18 09:27 210.7 84 18 100 05/25/18 08:27 Room Air 05/25/18 08:00 99.3 84 18 121/63 (82) 100 99.3 05/25/18 08:00 18 05/25/18 04:16 98.4 90 18 109/59 (76) 99 98.4 05/25/18 04:00 18 05/25/18 00:00 16 05/24/18 21:00 Room Air 05/24/18 20:14 97.2 84 18 115/66 (82) 100 97.2 05/24/18 20:00 18 05/24/18 17:00 96.4 72 18 120/68 (85) 98 96.4 05/24/18 16:26 98.0 76 14 127/62 100 Nasal Cannula 3 98.0 05/24/18 16:20 77 15 127/64 100 Nasal Cannula 3 05/24/18 16:20 19 05/24/18 16:05 16 05/24/18 16:05 97.0 05/24/18 16:05 74 16 117/70 100 Nasal Cannula 3 05/24/18 15:50 18 05/24/18 15:50 86 15 118/72 100 Nasal Cannula 3 05/24/18 15:35 86 18 126/73 100 Nasal Cannula 3 05/24/18 15:35 18 05/24/18 15:25 81 15 121/81 100 Nasal Cannula 3 05/24/18 15:14 84 19 132/85 100 Nasal Cannula 3 05/24/18 15:09 90 13 114/72 100 Simple Mask 6 05/24/18 15:08 206.6 84 16 100 05/24/18 15:04 97.0 84 16 109/62 100 Simple Mask 6 97.0 Intake and Output 05/24/18 05/25/18 19:00 07:00 Intake Total 1777.5 ml 1537.5 ml Output Total 30 ml 1400 ml Balance 1747.5 ml 137.5 ml Intake Oral 720 ml IV Total 1777.5 ml 817.5 ml Output Urine Total 1400 ml Estimated Blood Loss 30 ml # Voids 5 Height (Feet): 6 Height (Inches): 2.00 Weight (Pounds): 172 General Appearance: no apparent distress, alert EENT: PERRL/EOMI Neck: normal alignment Cardiovascular: normal peripheral pulses Respiratory/Chest: no respiratory distress Abdomen: soft Chris Quick MD May 25, 2018 14:00
[2018-05-25 16:00] VITALS: BP 123/92
[2018-05-25 20:00] VITALS: BP 113/60
[2018-05-26] VITALS: BP 104/53
[2018-05-26 04:00] VITALS: BP 105/55
[2018-05-26] MEDS: Piperacillin/Tazobactam 3.375 GM in NS 110 ML IVPB SCH ×3 (04:54→21:41)
--- NOTE | 2018-05-26 06:33 | General Progress Note ---
Assessment/Plan Assessment/Plan # Anemia of chronic disease, in addition to iron deficiency component, hgb on admission was 10.0 --> Anemia w/u has been reviewed. Will trend CBC as needed. --> Continue to monitor for stability --> Hgb goal above 7. Transfuse as needed on prn basis # Leukocytosis 2/2 infection/cellulitis is on abx --> Continue to monitor WBC for improvement --> also post-op at this point # Thrombocytosis. Reactive process and will improve. --> if plt count >600k, consider CML --> Continue to closely monitor for improvement --> Current PLT of 546 # Hidradenitis with gluteal abscess/infection/cellulitis, open wound, draining purulent fluid. --> signs of infection on labs (leukocytosis) --> Lactic acid slightly elevated --> Dr. Miller closely following # Hyponatremia. --> Likely secondary to hypovolemia --> IVF's The time the note was entered does not necessarily correspond to the time the patient was seen. Subjective Constitutional: Denies: no symptoms, chills, diaphoresis, fever, malaise, weakness, other HEENT: Denies: no symptoms, eye pain, blurred vision, tearing, double vision, ear pain, ear discharge, nose pain, nose congestion, throat pain, throat swelling, mouth pain, mouth swelling, other Cardiovascular: Denies: no symptoms, chest pain, edema, irregular heart rate, lightheadedness, palpitations, syncope, other Respiratory: Denies: no symptoms, cough, orthopnea, shortness of breath, SOB with excertion, SOB at rest, sputum, stridor, wheezing, other Gastrointestinal/Abdominal: Denies: no symptoms, abdomen distended, abdominal pain, black stools, tarry stools, blood in stool, constipated, diarrhea, difficulty swallowing, nausea, poor appetite, poor fluid intake, rectal bleeding , vomiting, other Genitourinary: Denies: no symptoms, burning, discharge, frequency, flank pain, hematuria, incontinence, pain, urgency, other Neurologic/Psychiatric: Denies: no symptoms, anxiety, depressed, emotional problems, headache, numbness, paresthesia, pre-existing deficit, seizure, tingling, tremors, weakness, other Endocrine: Denies: no symptoms, excessive sweating, flushing, intolerance to cold, intolerance to heat, increased hunger, increased thirst, increased urine, unexplained weight gain, unexplained weight loss, other Allergies: Coded Allergies: VANCOMYCIN (Verified Adverse Reaction, Unknown, 05/23/18) breakouts and cheek Subjective Pt awake and alert. Pt for OR thurs, to have dressing change later today Objective Last 24 Hour Vital Signs Date Time Temp Pulse Resp B/P (MAP) Pulse Ox O2 Delivery O2 Flow Rate FiO2 05/26/18 04:00 98.9 85 18 105/55 (72) 100 98.9 05/26/18 04:00 18 05/26/18 00:00 99.2 96 18 104/53 (70) 100 99.2 05/26/18 00:00 18 05/25/18 21:00 Room Air 05/25/18 20:00 100.0 99 18 113/60 (77) 99 100.0 05/25/18 20:00 18 05/25/18 17:30 99.0 99.0 05/25/18 16:00 100.7 100 18 123/92 (102) 100 100.7 05/25/18 16:00 18 05/25/18 11:56 98.1 86 18 103/84 (90) 96 98.1 05/25/18 11:56 18 05/25/18 09:27 210.7 84 18 100 05/25/18 08:27 Room Air 05/25/18 08:00 99.3 84 18 121/63 (82) 100 99.3 05/25/18 08:00 18 Intake and Output 05/25/18 05/26/18 19:00 07:00 Intake Total 875 ml 1362.5 ml Output Total 1650 ml Balance 875 ml -287.5 ml Intake Oral 600 ml IV Total 875 ml 762.5 ml Output Urine Total 1650 ml Laboratory Tests 05/26/18 06:00: White Blood Count [Pending], Red Blood Count [Pending], Hemoglobin [Pending], Hematocrit [Pending], Mean Corpuscular Volume [Pending], Mean Corpuscular Hemoglobin [Pending], Mean Corpuscular Hemoglobin Concent [Pending], Red Cell Distribution Width [Pending], Platelet Count [Pending], Mean Platelet Volume [ Pending], Neutrophils (%) (Auto) [Pending], Lymphocytes (%) (Auto) [Pending], Monocytes (%) (Auto) [Pending], Eosinophils (%) (Auto) [Pending], Basophils (%) (Auto) [Pending] Height (Feet): 6 Height (Inches): 2.00 Weight (Pounds): 172 General Appearance: no apparent distress EENT: TMs normal Neck: supple Cardiovascular: normal rate Respiratory/Chest: normal breath sounds Abdomen: no organomegaly Extremities: non-tender Edema: 1+ Leg (L), 1+ Leg (R) Edema: trace edema Neurologic: alert Chris Quick MD May 26, 2018 06:33
[2018-05-26] MEDS: PCA shift volume MISC SCH ×2 (07:06→19:14)
[2018-05-26 07:51] LABS: HEMATOCRIT 24.8 % (42.0-52.0); HEMOGLOBIN 7.6 G/DL (14.2-18.0); MEAN CORPUSCULAR VOLUME 75 FL (80-99); PLATELET COUNT 438 K/UL (150-450); RED CELL DISTRIBUTION WIDTH 14.9 % (11.6-14.8)
[2018-05-26 07:56] VITALS: BP 115/64
[2018-05-26 07:56] LABS: WHITE BLOOD COUNT 17.3 K/UL (4.8-10.8)
[2018-05-26] MEDS: Heparin 5000 units/ml inj SUBQ SCH ×2 (09:00→21:41)
[2018-05-26 11:50] VITALS: BP 110/72
[2018-05-26] MEDS ORDERED: Rate Change PCA 1 Each MISC PRN (15:00)
[2018-05-26] MEDS ORDERED: PCA Education Pamphlet MISC ONE (15:00)
[2018-05-26] MEDS ORDERED: PCA HYDROmorphone 1mg/ml 30 ML IV PRN (15:00)
[2018-05-26] MEDS ORDERED: Naloxone 0.4mg/ml Inj IVP PRN (15:00)
--- NOTE | 2018-05-26 15:11 | General Progress Note ---
Assessment/Plan Status: stable Assessment/Plan (1) Hidradenitis Gluteal abscess/infection/cellulitis admitted with open wounds, draining purulent fluid signs of infection on labs (leukocytosis) Lactic acid slightly elevated on admission Plastic surgery evaluation appreciated- s/p debridement of infected wounds/ gluteal abscess 05/24 continue broad spectrum IV antibiotics Aggressive IVF's Pain control Plan for second stage with closure tomorrow 2) Anemia, acute blood loss Hematology input appreciated Recent drop likely secondary to procedure- 2 units PRBC transfusion ordered- follow CBC posttransfusion 3)Hyponatremia on admission Likely secondary to hypovolemia IVF's DVT Prophylaxis: scd's Code status: full Hospital Classification declaration: Based on this initial evaluation, and depending on the patient's clinical course, I anticipate that this patient will require hospitalization for 2-3 days. Disposition: Once the patient is stable to leave the hospital, I anticipate the patient will likely be discharged to the following environment:Home with HH I spent 45 minutes on this patient's case, and 23 minutes was dedicated to counseling and/or care coordination. Time of note may not reflect time of encounter. Subjective Date patient seen: May 26, 2018 Time patient seen: 15:22 ROS Limited/Unobtainable: No Constitutional: Reports: weakness HEENT: Reports: no symptoms Cardiovascular: Reports: no symptoms Respiratory: Reports: no symptoms Gastrointestinal/Abdominal: Reports: no symptoms Genitourinary: Reports: no symptoms, pain Neurologic/Psychiatric: Reports: no symptoms Endocrine: Reports: no symptoms Hematologic/Lymphatic: Reports: no symptoms Allergies: Coded Allergies: VANCOMYCIN (Verified Adverse Reaction, Unknown, 05/23/18) breakouts and cheek All Systems: reviewed and negative except above Subjective Events of overnight noted Chart reviewed; low grade temperature postop Patient with pain, controlled Weakness- hemoglobin low at 7.6- transfusion ordered Objective Last 24 Hour Vital Signs Date Time Temp Pulse Resp B/P (MAP) Pulse Ox O2 Delivery O2 Flow Rate FiO2 05/26/18 12:00 18 05/26/18 11:50 97.9 86 18 110/72 (85) 98 97.9 05/26/18 07:58 18 05/26/18 07:58 Room Air 05/26/18 07:56 98.2 87 18 115/64 (81) 99 98.2 05/26/18 04:00 98.9 85 18 105/55 (72) 100 98.9 05/26/18 04:00 18 05/26/18 00:00 99.2 96 18 104/53 (70) 100 99.2 05/26/18 00:00 18 05/25/18 21:00 Room Air 05/25/18 20:00 100.0 99 18 113/60 (77) 99 100.0 05/25/18 20:00 18 05/25/18 17:30 99.0 99.0 05/25/18 16:00 100.7 100 18 123/92 (102) 100 100.7 05/25/18 16:00 18 Intake and Output 05/25/18 05/26/18 19:00 07:00 Intake Total 875 ml 1390.0 ml Output Total 1650 ml Balance 875 ml -260.0 ml Intake Oral 600 ml IV Total 875 ml 790.0 ml Output Urine Total 1650 ml Laboratory Tests 05/26/18 06:00: White Blood Count 17.3H, Red Blood Count 3.30L, Hemoglobin 7.6L, Hematocrit 24.8L, Mean Corpuscular Volume 75L, Mean Corpuscular Hemoglobin 22.9L, Mean Corpuscular Hemoglobin Concent 30.5L, Red Cell Distribution Width 14.9H, Platelet Count 438, Mean Platelet Volume 4.8L, Neutrophils (%) (Auto) , Lymphocytes (%) (Auto) , Monocytes (%) (Auto) , Eosinophils (%) (Auto) , Basophils (%) (Auto) , Differential Total Cells Counted 100, Neutrophils % ( Manual) 72, Lymphocytes % (Manual) 21, Monocytes % (Manual) 5, Eosinophils % ( Manual) 2, Basophils % (Manual) 0, Band Neutrophils 0, Platelet Estimate Adequate, Platelet Morphology Normal, Hypochromasia 1+, Anisocytosis 1+, Microcytosis 2+ Height (Feet): 6 Height (Inches): 2.00 Weight (Pounds): 172 General Appearance: no apparent distress, thin EENT: PERRL/EOMI, normal ENT inspection, pale conjunctivae Neck: non-tender Cardiovascular: normal peripheral pulses, normal rate, regular rhythm Respiratory/Chest: chest wall non-tender, lungs clear Abdomen: non tender, soft Pelvis: discharge, lesions Extremities: normal range of motion Edema: trace edema Neurologic: motor vehicle representative II-XII grossly normal, alert Skin: normal pigmentation Lymphatic: normal anterior cervical (L), normal anterior cervical (R) Duke Lovell MD May 26, 2018 15:11
[2018-05-26 15:52] VITALS: BP 116/50
[2018-05-26 20:00] VITALS: BP 115/55
--- NOTE | 2018-05-26 20:18 | Anethesia Preoperative Eval ---
Anesthesia Pre-op PMH/ROS General Date of Evaluation: May 26, 2018 Time of Evaluation: 20:00 Anesthesiologist: ASA Score: ASA 2 Mallampati Score Class I : Soft palate, uvula, fauces, pillars visible Class II: Soft palate, uvula, fauces visible Class III: Soft palate, base of uvula visible Class IV: Only hard plate visible Mallampati Classification: Class II Surgeon: jesús Diagnosis: complex buttock abscess, ceullitis Surgical Procedure: flap elevation/wound closure bilatral groin Allergies: Coded Allergies: VANCOMYCIN (Verified Adverse Reaction, Unknown, 05/23/18) breakouts and cheek Past Medical History Cardiovascular: Denies: HTN, CAD, [place], valve dz, arrhythmia, other Pulmonary: Denies: asthma, COPD, CHETAN, other Gastrointestinal/Genitourinary: Denies: GERD, CRI, ESRD, other Neurologic/Psychiatric: Denies: dementia, CVA, depression/anxiety, TIA, other Endocrine: Denies: DM, hypothyroidism, steroids, other HEENT: Denies: cataract (L), cataract (R), glaucoma, [place] (L), RED CL[place] (R), other Hematology/Immune: Reports: anemia, other - prbc transfusion 05/26/18 Musculoskeletal/Integumentary: Denies: OA, RA, DJD, DDD, edema, other PSxH Narrative: multiple I and D buttock/ groin Anesthesia Pre-op Phys. Exam Physician Exam Last Vital Signs Date Time Temp Pulse Resp B/P (MAP) Pulse Ox O2 Delivery O2 Flow Rate FiO2 05/26/18 16:00 18 05/26/18 15:52 98.3 93 116/50 (72) 100 98.3 05/26/18 07:58 Room Air 05/24/18 16:26 3 Constitutional: NAD Cardiovascular: RRR Respiratory: CTA Gastrointestinal: S/NT/ND Airway Exam Mallampati Score: Class II MO: full ROM: full Teeth: intact Dentures: no upper, no lower Anesthesia Pre-op A/P Labs Hematology Test 05/26/18 06:00 White Blood Count 17.3 K/UL (4.8-10.8) H Red Blood Count 3.30 M/UL (4.70-6.10) L Hemoglobin 7.6 G/DL (14.2-18.0) L Hematocrit 24.8 % (42.0-52.0) L Mean Corpuscular Volume 75 FL (80-99) L Mean Corpuscular Hemoglobin 22.9 PG (27.0-31.0) L Mean Corpuscular Hemoglobin Concent 30.5 G/DL (32.0-36.0) L Red Cell Distribution Width 14.9 % (11.6-14.8) H Platelet Count 438 K/UL (150-450) Mean Platelet Volume 4.8 FL (6.5-10.1) L Neutrophils (%) (Auto) % (45.0-75.0) Lymphocytes (%) (Auto) % (20.0-45.0) Monocytes (%) (Auto) % (1.0-10.0) Eosinophils (%) (Auto) % (0.0-3.0) Basophils (%) (Auto) % (0.0-2.0) Differential Total Cells Counted 100 Neutrophils % (Manual) 72 % (45-75) Lymphocytes % (Manual) 21 % (20-45) Monocytes % (Manual) 5 % (1-10) Eosinophils % (Manual) 2 % (0-3) Basophils % (Manual) 0 % (0-2) Band Neutrophils 0 % (0-8) Platelet Estimate Adequate Platelet Morphology Normal Hypochromasia 1+ Anisocytosis 1+ Microcytosis 2+ Risk Assessment & Plan Assessment: asa 2 Plan: Greer Paredes MD May 26, 2018 20:18
[2018-05-26 21:43] LABS: HEMATOCRIT 28.3 % (42.0-52.0); HEMOGLOBIN 9.3 G/DL (14.2-18.0); LYMPHOCYTES % (AUTO) 14.2 % (20.0-45.0); MEAN CORPUSCULAR VOLUME 77 FL (80-99); PLATELET COUNT 431 K/UL (150-450); WHITE BLOOD COUNT 18.1 K/UL (4.8-10.8)
[2018-05-26 21:44] LABS: BASOPHILS % (AUTO) 0.4 % (0.0-2.0); EOSINOPHILS % (AUTO) 3.7 % (0.0-3.0); MONOCYTES % (AUTO) 6.7 % (1.0-10.0)
[2018-05-27] VITALS (11 sets, daily range): BP systolic 99–126; BP diastolic 50–79
[2018-05-27] MEDS: Piperacillin/Tazobactam 3.375 GM in NS 110 ML IVPB SCH ×3 (05:17→20:22)
[2018-05-27] MEDS: PCA shift volume MISC SCH ×2 (07:00→19:00)
[2018-05-27 07:31] LABS: HEMATOCRIT 29.9 % (42.0-52.0); HEMOGLOBIN 9.6 G/DL (14.2-18.0); MEAN CORPUSCULAR VOLUME 77 FL (80-99); PLATELET COUNT 437 K/UL (150-450); RED CELL DISTRIBUTION WIDTH 15.5 % (11.6-14.8); WHITE BLOOD COUNT 18.5 K/UL (4.8-10.8)
--- NOTE | 2018-05-27 07:56 | General Progress Note ---
Assessment/Plan Assessment/Plan # Anemia of chronic disease, in addition to iron deficiency component, hgb on admission was 10.0 --> Anemia w/u has been reviewed. Will trend CBC as needed. --> Continue to monitor for stability --> Hgb goal above 7. Transfuse as needed on prn basis # Leukocytosis 2/2 infection/cellulitis is on abx --> Continue to monitor WBC for improvement --> also post-op at this point, left groin surgery # Thrombocytosis. Reactive process and will improve. --> if plt count >600k, consider CML --> Continue to closely monitor for improvement --> Current Plt of 546k # Hidradenitis with gluteal abscess/infection/cellulitis, open wound, draining purulent fluid. --> signs of infection on labs (leukocytosis) --> Lactic acid slightly elevated --> Dr. Miller closely following # Hyponatremia. --> Likely secondary to hypovolemia --> IVF's The time the note was entered does not necessarily correspond to the time the patient was seen. Subjective Constitutional: Denies: no symptoms, chills, diaphoresis, fever, malaise, weakness, other HEENT: Denies: no symptoms, eye pain, blurred vision, tearing, double vision, ear pain, ear discharge, nose pain, nose congestion, throat pain, throat swelling, mouth pain, mouth swelling, other Cardiovascular: Denies: no symptoms, chest pain, edema, irregular heart rate, lightheadedness, palpitations, syncope, other Respiratory: Denies: no symptoms, cough, orthopnea, shortness of breath, SOB with excertion, SOB at rest, sputum, stridor, wheezing, other Gastrointestinal/Abdominal: Denies: no symptoms, abdomen distended, abdominal pain, black stools, tarry stools, blood in stool, constipated, diarrhea, difficulty swallowing, nausea, poor appetite, poor fluid intake, rectal bleeding , vomiting, other Genitourinary: Denies: no symptoms, burning, discharge, frequency, flank pain, hematuria, incontinence, pain, urgency, other Neurologic/Psychiatric: Denies: no symptoms, anxiety, depressed, emotional problems, headache, numbness, paresthesia, pre-existing deficit, seizure, tingling, tremors, weakness, other Endocrine: Denies: no symptoms, excessive sweating, flushing, intolerance to cold, intolerance to heat, increased hunger, increased thirst, increased urine, unexplained weight gain, unexplained weight loss, other Hematologic/Lymphatic: Denies: no symptoms, anemia, easy bleeding, easy bruising, other Allergies: Coded Allergies: VANCOMYCIN (Verified Adverse Reaction, Unknown, 05/23/18) breakouts and cheek Subjective Pt awake and alert. Pt for OR thurs, to have dressing change later today, hgb reviewed Objective Last 24 Hour Vital Signs Date Time Temp Pulse Resp B/P (MAP) Pulse Ox O2 Delivery O2 Flow Rate FiO2 05/27/18 04:00 98.4 77 18 99/57 (71) 98 98.4 05/27/18 04:00 18 05/27/18 00:26 18 05/27/18 00:00 99.0 86 18 105/50 (68) 98 99.0 05/26/18 21:00 Room Air 05/26/18 20:00 99.4 99 17 115/55 (75) 98 99.4 05/26/18 20:00 18 05/26/18 16:00 18 05/26/18 15:52 98.3 93 18 116/50 (72) 100 98.3 05/26/18 12:00 18 05/26/18 11:50 97.9 86 18 110/72 (85) 98 97.9 05/26/18 07:58 18 05/26/18 07:58 Room Air 05/26/18 07:56 98.2 87 18 115/64 (81) 99 98.2 Intake and Output 05/26/18 05/27/18 19:00 07:00 Intake Total 1670 ml 1000 ml Output Total 3000 ml 1400 ml Balance -1330 ml -400 ml Intake Oral 1670 ml IV Total 1000 ml Output Urine Total 3000 ml 1400 ml # Bowel Movements 1 Laboratory Tests 05/26/18 21:30: White Blood Count 18.1H, Red Blood Count 3.70L, Hemoglobin 9.3L, Hematocrit 28.3L, Mean Corpuscular Volume 77L, Mean Corpuscular Hemoglobin 25.2L, Mean Corpuscular Hemoglobin Concent 32.9, Red Cell Distribution Width 15.0H, Platelet Count 431, Mean Platelet Volume 4.8L, Neutrophils (%) (Auto) 75.0, Lymphocytes (%) (Auto) 14.2L, Monocytes (%) (Auto) 6.7, Eosinophils (%) (Auto) 3.7H, Basophils (%) (Auto) 0.4 05/27/18 06:33: White Blood Count 18.5H, Red Blood Count 3.90L, Hemoglobin 9.6L, Hematocrit 29.9L, Mean Corpuscular Volume 77L, Mean Corpuscular Hemoglobin 24.5L, Mean Corpuscular Hemoglobin Concent 32.0, Red Cell Distribution Width 15.5H, Platelet Count 437, Mean Platelet Volume 5.0L, Neutrophils (%) (Auto) , Lymphocytes (%) (Auto) , Monocytes (%) (Auto) , Eosinophils (%) (Auto) , Basophils (%) (Auto) , Neutrophils % (Manual) [Pending], Lymphocytes % (Manual) [Pending], Platelet Estimate [Pending], Platelet Morphology [Pending] Height (Feet): 6 Height (Inches): 2.00 Weight (Pounds): 172 General Appearance: alert EENT: normal ENT inspection Neck: supple Cardiovascular: regular rhythm Respiratory/Chest: lungs clear Abdomen: non tender Extremities: non-tender Edema: 1+ Leg (L), 1+ Leg (R) Edema: mild edema Neurologic: alert Chris Quick MD May 27, 2018 07:56
[2018-05-27] MEDS: Heparin 5000 units/ml inj SUBQ SCH ×2 (08:22→20:41)
[2018-05-27] MEDS ORDERED: Midazolam 2mg/2ml Inj ONE (09:47)
[2018-05-27] MEDS ORDERED: fentaNYL 100 mcg/2 mL IV ONE (09:47)
[2018-05-27] MEDS ORDERED: Lidocaine 1% MPF 10mg/ml 5ml ONE (09:51)
[2018-05-27] MEDS ORDERED: Propofol 200mg/20ml IV ONE (09:51)
[2018-05-27] MEDS ORDERED: EPINEPHrine 1mg/1ml Amp ONE (09:59)
[2018-05-27] MEDS ORDERED: NeoSporin Gu Irrig 1ml Amp IRRIG ONE ×2 (10:00→11:44)
[2018-05-27] MEDS ORDERED: Lidocaine 1% 10mg/ml/Epi 0.005mg/ml 30ml vial INJ ONE (10:00)
[2018-05-27] MEDS ORDERED: LR 1000ml ONE (10:00)
[2018-05-27] MEDS ORDERED: NS Irrig 1000ml ONE (10:00)
[2018-05-27] MEDS ORDERED: Sterile Water Irrig 1000ml IRRIG ONE (10:00)
[2018-05-27] MEDS ORDERED: Bacitracin 50000 Units Vial ONE ×2 (10:00→11:44)
--- NOTE | 2018-05-27 10:02 | Pre-Procedure Note/Attestation ---
Pre-Procedure Note/Attestation Complete Prior to Procedure Planned Procedure: bilateral Procedure Narrative: Bilateral groin and scrotal wound closures Attestation I attest that I discussed the nature of the procedure; its benefits; risks and complications; and alternatives (and the risks and benefits of such alternatives ), prior to the procedure, with the patient (or the patient's legal sales utility representative). I attest that, if there was a reasonable possibility of needing a blood transfusion, the patient (or the patient's legal sales utility representative) was given the [facility] standardized written summary, pursuant to the [place] Blood Safety Act ([place] Health and Safety Code # 1645, as amended). I attest that I re-evaluated the patient just prior to the surgery and that there has been no change in the patient's H&P, except as documented below: RENEA MAYS May 27, 2018 10:02
[2018-05-27] MEDS ORDERED: Rate Change PCA 1 Each MISC PRN (10:15)
[2018-05-27] MEDS ORDERED: DiphenhydrAMINE 50mg/ml Inj IVP PRN ×2 (10:15→12:00)
[2018-05-27] MEDS ORDERED: Zolpidem 5mg tab ORAL PRN (10:15)
[2018-05-27] MEDS ORDERED: PCA HYDROmorphone 1mg/ml 30 ML IV PRN (10:15)
[2018-05-27] MEDS ORDERED: PCA Education Pamphlet MISC ONE (10:15)
[2018-05-27] MEDS ORDERED: Muri-Lube ONE (10:44)
[2018-05-27] MEDS ORDERED: Morphine Sulfate 10mg/ml Inj ONE (11:38)
[2018-05-27] MEDS ORDERED: Sodium Chloride 10ml vial INJ ONE (11:38)
[2018-05-27] MEDS ORDERED: Ketorolac 30mg Inj IV PRN (12:00)
[2018-05-27] MEDS ORDERED: Metoclopramide 10mg/2ml Inj IVP PRN (12:00)
[2018-05-27] MEDS ORDERED: LR 1000ml 1,000 ML IVLG SCH (12:00)
[2018-05-27] MEDS ORDERED: Meperidine 50mg/ml Inj(FOR RIGORS ONLY) IV PRN (12:00)
[2018-05-27] MEDS ORDERED: fentaNYL 100 mcg/2 mL IV PRN (12:00)
[2018-05-27] MEDS ORDERED: Lidocaine 1% 10mg/ml/EPI 0.01mg/ml 50ml INJ ONE (12:12)
[2018-05-27] MEDS ORDERED: Metoprolol 5mg/5ml Inj ONE (13:15)
--- NOTE | 2018-05-27 13:59 | Operative Note - PDOC ---
Operative Note Operative Note Procedure: Closure of scrotal wound and groin wounds Surgeon: jesús Oil Developer: sivan Anesthesia: general Specimen: yes Estimated Blood Loss: minimal Drains: none Implant(s) used?: No RENEA MAYS May 27, 2018 13:59
--- NOTE | 2018-05-27 14:13 | Immediate Post-Op Evaluation ---
Immediate Post-Op Evalulation Immediate Post-Op Evalulation Procedure: Revision and closure of bilateral groin wounds with skin grafts Date of Evaluation: May 27, 2018 Time of Evaluation: 14:11 IV Fluids: 1000 Blood Products: albumin 250 Estimated Blood Loss: 50 Urinary Output: 250 Blood Pressure Systolic: 113 Blood Pressure Diastolic: 60 Pulse Rate: 88 Respiratory Rate: 20 O2 Sat by Pulse Oximetry: 99 Temperature (Fahrenheit): 98.7 Pain Score (1-10): 1 Nausea: No Vomiting: No Complications NONE Patient Status: reacts, patent, none Hydration Status: adequate Omar Martinez MD May 27, 2018 14:12
--- NOTE | 2018-05-27 22:15 | Operative Note - Dictated ---
DATE OF OPERATION: 05/27/2018 PREOPERATIVE DIAGNOSIS: Bilateral open groin wound and open scrotal wound. POSTOPERATIVE DIAGNOSIS: Bilateral open groin wound and open scrotal wound. PROCEDURES: 1. Preparation of scrotal wound for flap closure wound measuring 8 x 6 cm. 2. Scrotal flap readvancement for closure of scrotal wound. 3. Preparation of right groin wound measuring 8 x 14 cm for closure with skin graft. 4. Closure of right groin wound with skin graft measuring 60 square centimeters after pexy of wound. 5. Preparation of left groin wound measuring 14 x 8 cm. 6. Closure of left groin wound with skin graft following pexy of 60 square cm. SURGEON: Miguel Dixon M.D. RADIO TECHNICIAN: Areli Aragon M.D. ANESTHESIA: General. COMPLICATIONS: None. DRAINS: None. DISPOSITION: Stable to the recovery room. INDICATIONS FOR SURGERY: This is a 38-year-old male, who is now three days status post radical excision of scrotal and bilateral groin hidradenitis status post flap elevation, who has undergone dressing changes at the bedside with IV antibiotics and who is now ready to undergo closure of his wounds. The patient was consented to undergo skin grafting of his groin wound as well as flap advancement closure of his scrotal wound. He understood the risks and benefits of surgery and agreed to proceed. DETAILS OF THE OPERATION: The patient was brought to the operating room and laid in the lithotomy position on the operating room table. His bilateral groins and lower extremity and lower abdomen and scrotum were prepped and draped in a sterile and usual fashion. We first began by cleaning up the scrotal wound bed that measured 8 x 6 cm of preparation for readvancement of the scrotal flap that had been previously elevated. The flap had to be further mobilized as it has contracted somewhat over the past 3 days to allow for tension-free repair. The flap was reelevated just above the tunica albuginea layer and this was based off of perforators of the pudendal artery. When the flap fully mobilized, the wound was then copiously irrigated with pulse lavage and the flap was then readvanced to the opposing edge and closed over a quarter-inch [place] drain using 2-0 and 3-0 Vicryl sutures and a interrupted 3-0 Prolene was used to close the skin. For the remainder of the wounds, which were in the left and right groin, we performed a pexy on both sides, which involved placing circumferential 2-0 Vicryl sutures to tack the skin edges down to the fascia of both wounds and this resulted in approximately 50% diminution in the size of the wound to a 60 square centimeters on both sides. Once this was done, the hemostasis had been achieved, a corresponding skin graft was designed for harvesting from the medial left thigh. The dermatome was used set to 14, 1000 of an inch. It was harvested and the skin graft was then meshed 1 to 1.5 and the appropriate sizes were cut again measuring 60 square centimeters on both sides and placed into the defect and inset using 3-0 chromic sutures. Bolster dressings were applied to the skin graft and the patient tolerated the procedure well and the plan will be to bring the patient back to the operating room on Thursday for exam under anesthesia to examine the skin graft. Miguel Dixon M.D. DR: CARLOZ JOB#: [id number] CC:
--- NOTE | 2018-05-27 22:25 | General Progress Note ---
Assessment/Plan Status: progressing Assessment/Plan (1) Hidradenitis Gluteal abscess/infection/cellulitis admitted with open wounds, draining purulent fluid signs of infection on labs (leukocytosis) Lactic acid slightly elevated on admission Plastic surgery evaluation appreciated- s/p debridement of infected wounds/ gluteal abscess 05/24 continue broad spectrum IV antibiotics Aggressive IVF's Pain control Plan for second stage surgery with closure today 2) Anemia, acute blood loss Hematology input appreciated Recent drop likely secondary to procedure- s/p 2 units PRBC transfusion yesterday with appropriate response- follow CBC postprocedure 3)Hyponatremia on admission Likely secondary to hypovolemia IVF's DVT Prophylaxis: scd's Code status: full Hospital Classification declaration: Based on this initial evaluation, and depending on the patient's clinical course, I anticipate that this patient will require hospitalization for 2-3 days. Disposition: Once the patient is stable to leave the hospital, I anticipate the patient will likely be discharged to the following environment:Home with HH I spent 45 minutes on this patient's case, and 23 minutes was dedicated to counseling and/or care coordination. Time of note may not reflect time of encounter. Subjective Date patient seen: May 27, 2018 Time patient seen: 11:12 ROS Limited/Unobtainable: No Constitutional: Reports: weakness HEENT: Reports: no symptoms Cardiovascular: Reports: no symptoms Respiratory: Reports: no symptoms Gastrointestinal/Abdominal: Reports: no symptoms Genitourinary: Reports: pain Neurologic/Psychiatric: Reports: no symptoms Endocrine: Reports: no symptoms Hematologic/Lymphatic: Reports: no symptoms Allergies: Coded Allergies: VANCOMYCIN (Verified Adverse Reaction, Unknown, 05/23/18) breakouts and cheek All Systems: reviewed and negative except above Subjective Events of overnight noted Chart reviewed; tolerated transfusion well Pain controlled Patient for OR today NPO Objective Last 24 Hour Vital Signs Date Time Temp Pulse Resp B/P (MAP) Pulse Ox O2 Delivery O2 Flow Rate FiO2 05/27/18 21:00 Room Air 05/27/18 20:30 18 05/27/18 20:00 98.9 111 18 126/79 (95) 99 98.9 05/27/18 16:00 18 05/27/18 15:00 98.4 90 18 119/53 100 Nasal Cannula 2 98.4 05/27/18 14:41 18 05/27/18 14:41 98.3 05/27/18 14:28 86 18 111/62 100 Nasal Cannula 2 05/27/18 14:12 87 20 116/64 100 Simple Mask 8 05/27/18 14:12 209.7 88 20 99 05/27/18 14:07 92 20 113/60 100 Simple Mask 8 05/27/18 14:02 99 92 20 111/62 100 Simple Mask 8 99.0 05/27/18 09:00 Room Air 05/27/18 08:00 17 05/27/18 08:00 98.2 78 17 100/53 (69) 100 98.2 05/27/18 04:00 98.4 77 18 99/57 (71) 98 98.4 05/27/18 04:00 18 05/27/18 00:26 18 05/27/18 00:00 99.0 86 18 105/50 (68) 98 99.0 Intake and Output 05/26/18 05/27/18 19:00 07:00 Intake Total 1670 ml 1000 ml Output Total 3000 ml 1400 ml Balance -1330 ml -400 ml Intake Oral 1670 ml IV Total 1000 ml Output Urine Total 3000 ml 1400 ml # Bowel Movements 1 Laboratory Tests 05/27/18 06:33: White Blood Count 18.5H, Red Blood Count 3.90L, Hemoglobin 9.6L, Hematocrit 29.9L, Mean Corpuscular Volume 77L, Mean Corpuscular Hemoglobin 24.5L, Mean Corpuscular Hemoglobin Concent 32.0, Red Cell Distribution Width 15.5H, Platelet Count 437, Mean Platelet Volume 5.0L, Neutrophils (%) (Auto) , Lymphocytes (%) (Auto) , Monocytes (%) (Auto) , Eosinophils (%) (Auto) , Basophils (%) (Auto) , Differential Total Cells Counted 100, Neutrophils % ( Manual) 69, Lymphocytes % (Manual) 22, Monocytes % (Manual) 7, Eosinophils % ( Manual) 1, Basophils % (Manual) 1, Band Neutrophils 0, Platelet Estimate Adequate, Platelet Morphology Normal, Hypochromasia 2+, Anisocytosis 1+, Microcytosis 1+, Spherocytes 1+ Height (Feet): 6 Height (Inches): 2.00 Weight (Pounds): 172 General Appearance: no apparent distress, alert EENT: PERRL/EOMI, TMs normal, pharynx normal, pale conjunctivae Neck: non-tender, supple Cardiovascular: normal peripheral pulses, normal rate, regular rhythm Respiratory/Chest: chest wall non-tender, lungs clear Abdomen: normal bowel sounds, non tender, soft Pelvis: discharge, lesions, other - dressings in place Extremities: normal range of motion Edema: no edema noted Arm (L), no edema noted Arm (R), no edema noted Leg (L), no edema noted Leg (R) Edema: trace edema Neurologic: ehs teacher II-XII grossly normal, no motor/sensory deficits Skin: normal pigmentation, rash Lymphatic: normal anterior cervical (L), normal anterior cervical (R) Duke Lovell MD May 27, 2018 22:25
[2018-05-28] VITALS: BP 117/54
[2018-05-28 04:00] VITALS: BP 117/61
[2018-05-28] MEDS: Piperacillin/Tazobactam 3.375 GM in NS 110 ML IVPB SCH ×2 (04:09→12:32)
[2018-05-28] MEDS: PCA shift volume MISC SCH ×2 (07:00→19:00)
--- NOTE | 2018-05-28 07:03 | Pre-Procedure Note/Attestation ---
Pre-Procedure Note/Attestation Complete Prior to Procedure Planned Procedure: bilateral Procedure Narrative: Bilateral groin and left axillary wound closures Attestation I attest that I discussed the nature of the procedure; its benefits; risks and complications; and alternatives (and the risks and benefits of such alternatives ), prior to the procedure, with the patient (or the patient's legal termite control service representative). I attest that, if there was a reasonable possibility of needing a blood transfusion, the patient (or the patient's legal termite control service representative) was given the [facility] standardized written summary, pursuant to the [place] Blood Safety Act ([place] Health and Safety Code # 1645, as amended). I attest that I re-evaluated the patient just prior to the surgery and that there has been no change in the patient's H&P, except as documented below: RENEA MAYS May 28, 2018 07:03
[2018-05-28 08:00] VITALS: BP 113/53
[2018-05-28] MEDS: Heparin 5000 units/ml inj SUBQ SCH ×2 (09:00→20:42)
--- NOTE | 2018-05-28 09:28 | General Progress Note ---
Progress Note Progress Note Pt seen and examined. POD #4 and # 1. Doing well. Dressings intact. Pain well controlled with WELL FLOW OPERATOR. Plan for EUA ON Thursday. MD TABATHA Iraheta AMIR May 28, 2018 09:28
--- NOTE | 2018-05-28 09:44 | General Progress Note ---
Assessment/Plan Assessment/Plan # Anemia of chronic disease, in addition to iron deficiency component, hgb on admission was 10.0 --> Anemia w/u has been reviewed. Will trend CBC as needed. --> Continue to monitor for stability --> Hgb goal above 7. Transfuse as needed on prn basis # Leukocytosis 2/2 infection/cellulitis is on abx as well as recent debridement --> Continue to monitor WBC for improvement --> also post-op at this point, left groin surgery # Thrombocytosis. Reactive process and will improve. --> if plt count >600k, consider CML --> Continue to closely monitor for improvement --> Current Plt of 546k # Hidradenitis with gluteal abscess/infection/cellulitis, open wound, draining purulent fluid. --> signs of infection on labs (leukocytosis) --> Lactic acid slightly elevated --> Dr. Miller closely following # Hyponatremia. --> Likely secondary to hypovolemia --> IVF's The time the note was entered does not necessarily correspond to the time the patient was seen. Subjective Constitutional: Denies: no symptoms, chills, diaphoresis, fever, malaise, weakness, other HEENT: Denies: no symptoms, eye pain, blurred vision, tearing, double vision, ear pain, ear discharge, nose pain, nose congestion, throat pain, throat swelling, mouth pain, mouth swelling, other Cardiovascular: Denies: no symptoms, chest pain, edema, irregular heart rate, lightheadedness, palpitations, syncope, other Respiratory: Denies: no symptoms, cough, orthopnea, shortness of breath, SOB with excertion, SOB at rest, sputum, stridor, wheezing, other Gastrointestinal/Abdominal: Denies: no symptoms, abdomen distended, abdominal pain, black stools, tarry stools, blood in stool, constipated, diarrhea, difficulty swallowing, nausea, poor appetite, poor fluid intake, rectal bleeding , vomiting, other Genitourinary: Denies: no symptoms, burning, discharge, frequency, flank pain, hematuria, incontinence, pain, urgency, other Neurologic/Psychiatric: Denies: no symptoms, anxiety, depressed, emotional problems, headache, numbness, paresthesia, pre-existing deficit, seizure, tingling, tremors, weakness, other Endocrine: Denies: no symptoms, excessive sweating, flushing, intolerance to cold, intolerance to heat, increased hunger, increased thirst, increased urine, unexplained weight gain, unexplained weight loss, other Hematologic/Lymphatic: Denies: no symptoms, anemia, easy bleeding, easy bruising, other Allergies: Coded Allergies: VANCOMYCIN (Verified Adverse Reaction, Unknown, 05/23/18) breakouts and cheek Subjective Pt awake and alert.was in OR yesterday, wbc elev today Objective Last 24 Hour Vital Signs Date Time Temp Pulse Resp B/P (MAP) Pulse Ox O2 Delivery O2 Flow Rate FiO2 05/28/18 09:00 Room Air 05/28/18 08:00 18 05/28/18 08:00 97.7 79 18 113/53 (73) 97 97.7 05/28/18 04:00 18 05/28/18 04:00 98.5 81 17 117/61 (79) 100 98.5 05/28/18 00:30 18 05/28/18 00:00 98.2 99 17 117/54 (75) 97 98.2 05/27/18 21:00 Room Air 05/27/18 20:30 18 05/27/18 20:00 98.9 111 18 126/79 (95) 99 98.9 05/27/18 16:00 18 05/27/18 16:00 97.0 81 18 105/62 (76) 100 97.0 05/27/18 15:30 97.9 83 17 111/60 (77) 100 97.9 05/27/18 15:00 98.4 90 18 119/53 100 Nasal Cannula 2 98.4 05/27/18 14:41 18 05/27/18 14:41 98.3 05/27/18 14:28 86 18 111/62 100 Nasal Cannula 2 05/27/18 14:12 87 20 116/64 100 Simple Mask 8 05/27/18 14:12 209.7 88 20 99 05/27/18 14:07 92 20 113/60 100 Simple Mask 8 05/27/18 14:02 99 92 20 111/62 100 Simple Mask 8 99.0 Intake and Output 05/27/18 05/28/18 19:00 07:00 Intake Total 1490 ml 1480 ml Output Total 250 ml 900 ml Balance 1240 ml 580 ml Intake Oral 240 ml 480 ml IV Total 1000 ml 1000 ml Other 250 ml Output Urine Total 250 ml 900 ml Height (Feet): 6 Height (Inches): 2.00 Weight (Pounds): 172 General Appearance: alert EENT: TMs normal Neck: supple Cardiovascular: no gallop/murmur Respiratory/Chest: no respiratory distress Abdomen: no organomegaly Extremities: normal range of motion Edema: 1+ Leg (L), 1+ Leg (R) Edema: mild edema Neurologic: alert Skin: warm/dry Chris Quick MD May 28, 2018 09:44
[2018-05-28 12:00] VITALS: BP 116/61
--- NOTE | 2018-05-28 13:54 | 48 Hour Post Anesthesia Eval ---
Post Anesthesia Evaluation Procedure: Revision and closure of bilateral groin wounds with skin grafts Date of Evaluation: May 28, 2018 Time of Evaluation: 07:30 Blood Pressure Systolic: 117 0: 61 Pulse Rate: 81 Respiratory Rate: 17 Temperature (Fahrenheit): 98.5 O2 Sat by Pulse Oximetry: 100 Airway: patent Nausea: No Vomiting: No Pain Intensity: 0 Hydration Status: adequate Cardiopulmonary Status: at baseline Mental Status/LOC: patient returned to baseline Post-Anesthesia Complications: 0 Follow-up care needed: N/A - further care as per primary team Marina Madrid MD May 28, 2018 13:54
--- NOTE | 2018-05-28 15:11 | Anethesia Preoperative Eval ---
Anesthesia Pre-op PMH/ROS General Date of Evaluation: May 28, 2018 Time of Evaluation: 14:59 Anesthesiologist: Luis ASA Score: ASA 1 Mallampati Score Class I : Soft palate, uvula, fauces, pillars visible Class II: Soft palate, uvula, fauces visible Class III: Soft palate, base of uvula visible Class IV: Only hard plate visible Mallampati Classification: Class II Surgeon: Zack Diagnosis: Complex Buttock Abscess, Cellulitis Surgical Procedure: Exam Under Anesthesia Anesthesia History: none Family History: no anesthesia problems Allergies: Coded Allergies: VANCOMYCIN (Verified Adverse Reaction, Unknown, 05/23/18) breakouts and cheek Medications: see eMAR Past Medical History Cardiovascular: Denies: HTN, CAD, HI, valve dz, arrhythmia, other Pulmonary: Denies: asthma, COPD, CHETAN, other Gastrointestinal/Genitourinary: Denies: GERD, CRI, ESRD, other Neurologic/Psychiatric: Denies: dementia, CVA, depression/anxiety, TIA, other Endocrine: Denies: DM, hypothyroidism, steroids, other HEENT: Denies: cataract (L), cataract (R), glaucoma, RAMONA (L), RAMONA (R), other Hematology/Immune: Denies: anemia, DVT, bleeding disorder, other Musculoskeletal/Integumentary: Reports: other - Buttock Abscess PSxH Narrative: Surgery For Above Anesthesia Pre-op Phys. Exam Physician Exam Last Vital Signs Date Time Temp Pulse Resp B/P (MAP) Pulse Ox O2 Delivery O2 Flow Rate FiO2 05/28/18 13:54 209.3 81 17 100 05/28/18 12:00 116/61 (79) 05/28/18 09:00 Room Air 05/27/18 15:00 2 Constitutional: NAD Neurologic: CN 2-12 intact Cardiovascular: RRR Respiratory: CTA Gastrointestinal: S/NT/ND Airway Exam Mallampati Score: Class II MO: full ROM: full Teeth: intact Anesthesia Pre-op A/P Risk Assessment & Plan Assessment: ASA 1 Plan: GA Status Change Before Surgery: No Pre-Antibiotics Drug: WILLA Cristino Smith MD May 28, 2018 15:11
[2018-05-28 16:00] VITALS: BP 113/58
--- NOTE | 2018-05-28 19:55 | General Progress Note ---
Assessment/Plan Status: stable, progressing Assessment/Plan (1) Hidradenitis Gluteal abscess/infection/cellulitis admitted with open wounds, draining purulent fluid signs of systemic infection on labs (leukocytosis) Lactic acid slightly elevated on admission Plastic surgery evaluation appreciated- s/p debridement of infected wounds/ gluteal abscess 05/24 with second stage procedure 05/27 continue broad spectrum IV antibiotics Plan for exam under anesthesia Thursday Aggressive IVF's Pain control 2) Anemia, acute blood loss Hematology input appreciated s/p 2 units PRBC transfusion 05/26 with good response- follow CBC's closely postop 3)Hyponatremia on admission Likely secondary to hypovolemia IVF's DVT Prophylaxis: scd's Code status: full Hospital Classification declaration: Based on this initial evaluation, and depending on the patient's clinical course, I anticipate that this patient will require hospitalization for 2-3 days. Disposition: Once the patient is stable to leave the hospital, I anticipate the patient will likely be discharged to the following environment:Home with HH I spent 45 minutes on this patient's case, and 23 minutes was dedicated to counseling and/or care coordination. Time of note may not reflect time of encounter. Subjective Date patient seen: May 28, 2018 Time patient seen: 12:22 ROS Limited/Unobtainable: No Constitutional: Reports: no symptoms HEENT: Reports: no symptoms Cardiovascular: Reports: no symptoms Respiratory: Reports: no symptoms Gastrointestinal/Abdominal: Reports: no symptoms Genitourinary: Reports: pain Neurologic/Psychiatric: Reports: no symptoms Endocrine: Reports: no symptoms Hematologic/Lymphatic: Reports: no symptoms Allergies: Coded Allergies: VANCOMYCIN (Verified Adverse Reaction, Unknown, 05/23/18) breakouts and cheek All Systems: reviewed and negative except above Subjective Events of overnight noted Chart reviewed by me s/p second stage procedure yesterday for infected gluteal/scrotal wounds Tolerated well Pain controlled No chest pain or dyspnea Objective Last 24 Hour Vital Signs Date Time Temp Pulse Resp B/P (MAP) Pulse Ox O2 Delivery O2 Flow Rate FiO2 05/28/18 16:00 99.0 89 20 113/58 (76) 96 99.0 05/28/18 16:00 20 05/28/18 13:54 209.3 81 17 100 05/28/18 12:00 20 05/28/18 12:00 98.6 86 20 116/61 (79) 98 98.6 05/28/18 09:00 Room Air 05/28/18 08:00 18 05/28/18 08:00 97.7 79 18 113/53 (73) 97 97.7 05/28/18 04:00 18 05/28/18 04:00 98.5 81 17 117/61 (79) 100 98.5 05/28/18 00:30 18 05/28/18 00:00 98.2 99 17 117/54 (75) 97 98.2 05/27/18 21:00 Room Air 05/27/18 20:30 18 05/27/18 20:00 98.9 111 18 126/79 (95) 99 98.9 Intake and Output 05/27/18 05/28/18 19:00 07:00 Intake Total 1490 ml 1480 ml Output Total 250 ml 900 ml Balance 1240 ml 580 ml Intake Oral 240 ml 480 ml IV Total 1000 ml 1000 ml Other 250 ml Output Urine Total 250 ml 900 ml Height (Feet): 6 Height (Inches): 2.00 Weight (Pounds): 172 General Appearance: no apparent distress, alert EENT: PERRL/EOMI, normal ENT inspection, TMs normal, pale conjunctivae Neck: non-tender, normal alignment, supple Cardiovascular: normal peripheral pulses, normal rate, regular rhythm Respiratory/Chest: chest wall non-tender, lungs clear, normal breath sounds Abdomen: normal bowel sounds Pelvis: discharge, lesions, ulcers Extremities: normal range of motion Edema: no edema noted Arm (L), no edema noted Arm (R), no edema noted Leg (L), no edema noted Leg (R), no edema noted Pedal (L), no edema noted Pedal (R) Neurologic: planner/scheduler II-XII grossly normal, no motor/sensory deficits, alert, oriented x 3 Lymphatic: normal anterior cervical (L), normal anterior cervical (R) Duke Lovell MD May 28, 2018 19:55
[2018-05-28 20:00] VITALS: BP 106/54
[2018-05-28] MEDS: Piperacillin/Tazobactam 3.375 GM in D5W 110 ML IVPB SCH (21:00)
[2018-05-29] VITALS: BP 113/60
[2018-05-29 04:00] VITALS: BP 127/72
[2018-05-29] MEDS: Piperacillin/Tazobactam 3.375 GM in D5W 110 ML IVPB SCH ×3 (06:12→20:19)
[2018-05-29] MEDS: PCA shift volume MISC SCH ×2 (07:26→19:11)
[2018-05-29 08:00] VITALS: BP 110/56
[2018-05-29] MEDS ORDERED: Rate Change PCA 1 Each MISC PRN (09:00)
[2018-05-29] MEDS ORDERED: PCA HYDROmorphone 1mg/ml 30 ML IV PRN (09:00)
[2018-05-29] MEDS: Heparin 5000 units/ml inj SUBQ SCH ×2 (09:00→20:19)
--- NOTE | 2018-05-29 10:47 | General Progress Note ---
Assessment/Plan Status: stable Assessment/Plan (1) Hidradenitis Gluteal abscess/infection/cellulitis admitted with open wounds, draining purulent fluid signs of systemic infection on labs (leukocytosis) Lactic acid slightly elevated on admission Plastic surgery evaluation appreciated- s/p debridement of infected wounds/ gluteal abscess 05/24 with second stage procedure 05/27 continue broad spectrum IV antibiotics Plan for exam under anesthesia Thursday Aggressive IVF's Pain control 2) Anemia, acute blood loss Hematology input appreciated s/p 2 units PRBC transfusion 05/26 with good response- follow CBC's closely postop 3)Hyponatremia on admission Likely secondary to hypovolemia IVF's DVT Prophylaxis: scd's Code status: full Hospital Classification declaration: Based on this initial evaluation, and depending on the patient's clinical course, I anticipate that this patient will require hospitalization for 2-3 days. Disposition: Once the patient is stable to leave the hospital, I anticipate the patient will likely be discharged to the following environment: Home with HH vs SNF/ARU I spent 45 minutes on this patient's case, and 23 minutes was dedicated to counseling and/or care coordination. Time of note may not reflect time of encounter. Subjective Date patient seen: May 29, 2018 Time patient seen: 10:47 ROS Limited/Unobtainable: No Constitutional: Reports: no symptoms HEENT: Reports: no symptoms Cardiovascular: Reports: no symptoms Respiratory: Reports: no symptoms Gastrointestinal/Abdominal: Reports: no symptoms Genitourinary: Reports: no symptoms Neurologic/Psychiatric: Reports: no symptoms Endocrine: Reports: no symptoms Hematologic/Lymphatic: Reports: no symptoms Allergies: Coded Allergies: VANCOMYCIN (Verified Adverse Reaction, Unknown, 05/23/18) breakouts and cheek All Systems: reviewed and negative except above Subjective No acute o/n events POD#2 Pt states pain controlled but still requiring frequent pain meds. Has not been OOB yet. +BM. Denies f/c, n/v, d/c, chest pain, SOB Pt inquiring abt rehab placement for wound care, states he does not think he can manage at home Objective Last 24 Hour Vital Signs Date Time Temp Pulse Resp B/P (MAP) Pulse Ox O2 Delivery O2 Flow Rate FiO2 05/29/18 08:00 98.5 83 18 110/56 (74) 99 98.5 05/29/18 04:00 98.8 88 20 127/72 (90) 98 98.8 05/29/18 04:00 18 05/29/18 00:00 99.0 81 20 113/60 (77) 97 99.0 05/29/18 00:00 18 05/28/18 21:00 Room Air 05/28/18 20:00 99.0 86 19 106/54 (71) 96 99.0 05/28/18 20:00 20 05/28/18 16:00 99.0 89 20 113/58 (76) 96 99.0 05/28/18 16:00 20 05/28/18 13:54 209.3 81 17 100 05/28/18 12:00 20 05/28/18 12:00 98.6 86 20 116/61 (79) 98 98.6 Intake and Output 05/28/18 05/29/18 19:00 07:00 Intake Total 925 ml 2065 ml Output Total 0 ml 950 ml Balance 925 ml 1115 ml Intake Oral 800 ml 1080 ml IV Total 125 ml 985 ml Output Urine Total 0 ml 950 ml # Voids 4 Height (Feet): 6 Height (Inches): 2.00 Weight (Pounds): 172 Objective General Appearance: no apparent distress, alert EENT: PERRL/EOMI, normal ENT inspection, TMs normal, pale conjunctivae Neck: non-tender, normal alignment, supple Cardiovascular: normal peripheral pulses, normal rate, regular rhythm Respiratory/Chest: chest wall non-tender, lungs clear, normal breath sounds Abdomen: normal bowel sounds Pelvis: discharge, lesions, ulcers Extremities: normal range of motion Edema: no edema noted Arm (L), no edema noted Arm (R), no edema noted Leg (L), no edema noted Leg (R), no edema noted Pedal (L), no edema noted Pedal (R) Neurologic: polygraph operator II-XII grossly normal, no motor/sensory deficits, alert, oriented x 3 Lymphatic: normal anterior cervical (L), normal anterior cervical (R) Ronnell Zamudio M.D. May 29, 2018 10:47
[2018-05-29 12:00] VITALS: BP 110/58
[2018-05-29 16:00] VITALS: BP 114/69
--- NOTE | 2018-05-29 18:00 | General Progress Note ---
Assessment/Plan Status: stable Assessment/Plan # Anemia of chronic disease, in addition to iron deficiency component, hgb on admission was 10.0 --> Anemia w/u has been reviewed. Will trend CBC as needed. --> Continue to monitor for stability --> Hgb goal above 7. Transfuse as needed on prn basis --> Blood tx: 2 units on 05/26 # Leukocytosis 2/2 infection/cellulitis is on abx as well as recent debridement --> Continue to monitor WBC for improvement --> also post-op at this point, left groin surgery # Thrombocytosis. Reactive process and will improve. --> if plt count >600k, consider CML --> Continue to closely monitor for improvement --> Current Plt of 546k # Hidradenitis with gluteal abscess/infection/cellulitis, open wound, draining purulent fluid. --> signs of infection on labs (leukocytosis) --> Lactic acid slightly elevated --> Dr. Miller closely following # Hyponatremia. --> Likely secondary to hypovolemia --> IVF's The time the note was entered does not necessarily correspond to the time the patient was seen. Subjective Date patient seen: May 29, 2018 ROS Limited/Unobtainable: Yes Hematologic/Lymphatic: Reports: anemia Allergies: Coded Allergies: VANCOMYCIN (Verified Adverse Reaction, Unknown, 05/23/18) breakouts and cheek All Systems: reviewed and negative except above Subjective Pt awake and alert. Pt refusing care. VS stable. Objective Last 24 Hour Vital Signs Date Time Temp Pulse Resp B/P (MAP) Pulse Ox O2 Delivery O2 Flow Rate FiO2 05/29/18 16:00 98.2 95 18 114/69 (84) 97 98.2 05/29/18 15:22 98.2 05/29/18 15:14 18 05/29/18 15:12 18 05/29/18 14:52 98.2 05/29/18 12:00 98.2 84 18 110/58 (75) 100 98.2 05/29/18 12:00 18 05/29/18 09:00 Room Air 05/29/18 08:00 98.5 83 18 110/56 (74) 99 98.5 05/29/18 08:00 18 05/29/18 04:00 98.8 88 20 127/72 (90) 98 98.8 05/29/18 04:00 18 05/29/18 00:00 99.0 81 20 113/60 (77) 97 99.0 05/29/18 00:00 18 05/28/18 21:00 Room Air 05/28/18 20:00 99.0 86 19 106/54 (71) 96 99.0 05/28/18 20:00 20 Intake and Output 05/28/18 05/29/18 19:00 07:00 Intake Total 925 ml 2065 ml Output Total 0 ml 950 ml Balance 925 ml 1115 ml Intake Oral 800 ml 1080 ml IV Total 125 ml 985 ml Output Urine Total 0 ml 950 ml # Voids 4 Height (Feet): 6 Height (Inches): 2.00 Weight (Pounds): 172 General Appearance: no apparent distress, alert EENT: PERRL/EOMI Neck: normal alignment Cardiovascular: normal peripheral pulses Respiratory/Chest: no respiratory distress Abdomen: non tender, soft Chris Quick MD May 29, 2018 18:00
[2018-05-29 20:00] VITALS: BP 115/72
[2018-05-29] MEDS ORDERED: Zolpidem 5mg tab ORAL PRN (21:00)
[2018-05-30] VITALS: BP 118/70
[2018-05-30 04:00] VITALS: BP_SYST 145; BP_DIAS 89; BP_DIAS 94
[2018-05-30] MEDS: Piperacillin/Tazobactam 3.375 GM in D5W 110 ML IVPB SCH ×3 (04:03→21:28)
[2018-05-30] MEDS: PCA shift volume MISC SCH ×2 (07:08→19:10)
[2018-05-30 08:00] VITALS: BP 103/54
[2018-05-30] MEDS: Heparin 5000 units/ml inj SUBQ SCH ×2 (08:41→21:00)
--- NOTE | 2018-05-30 10:27 | General Progress Note ---
Progress Note Progress Note Pt seen and examined. POD # 3 and doing well. Dressings in place. Plan for removal of dressings under anesthesia on Thursday. Rneea Mays M.D. RENEA MAYS May 30, 2018 10:27
[2018-05-30 12:00] VITALS: BP 125/63
--- NOTE | 2018-05-30 14:16 | General Progress Note ---
Assessment/Plan Status: stable Assessment/Plan # Anemia of chronic disease, in addition to iron deficiency component, hgb on admission was 10.0 --> Anemia w/u has been reviewed. Will trend CBC as needed. --> Continue to monitor for stability --> Hgb goal above 7. Transfuse as needed on prn basis --> Blood tx: 2 units on 05/26 --> Current Hgb at 9.6 # Leukocytosis 2/2 infection/cellulitis is on abx as well as recent debridement --> Continue to monitor WBC for improvement --> also post-op at this point, left groin surgery --> Current WBC 18.5, remains elevated # Thrombocytosis. Reactive process and will improve. --> if plt count >600k, consider CML --> Continue to closely monitor for improvement --> Current PLT of 437, wnl, stable. # Hidradenitis with gluteal abscess/infection/cellulitis, open wound, draining purulent fluid. --> signs of infection on labs (leukocytosis) --> Lactic acid slightly elevated --> Dr. Miller closely following # Hyponatremia. --> Likely secondary to hypovolemia --> IVF's The time the note was entered does not necessarily correspond to the time the patient was seen. Subjective Date patient seen: May 30, 2018 ROS Limited/Unobtainable: Yes Hematologic/Lymphatic: Reports: anemia Allergies: Coded Allergies: VANCOMYCIN (Verified Adverse Reaction, Unknown, 05/23/18) breakouts and cheek All Systems: reviewed and negative except above Subjective Pt awake and alert. Pt refusing care. Pt refused lab draws twice this morning. Plan for removal of dressings under anesthesia on Thursday Objective Last 24 Hour Vital Signs Date Time Temp Pulse Resp B/P (MAP) Pulse Ox O2 Delivery O2 Flow Rate FiO2 05/30/18 12:00 19 05/30/18 12:00 99.0 92 20 125/63 (83) 100 99.0 05/30/18 09:00 Room Air 05/30/18 08:00 16 05/30/18 08:00 97.6 74 19 103/54 (70) 97 97.6 05/30/18 04:00 98.2 90 20 145/89 (107) 96 98.2 05/30/18 04:00 17 05/30/18 00:00 18 9/2/18 00:00 99.2 96 18 118/70 (86) 97 99.2 05/29/18 21:00 Room Air 05/29/18 20:00 19 05/29/18 20:00 99.4 99 18 115/72 (86) 97 99.4 05/29/18 16:00 98.2 95 18 114/69 (84) 97 98.2 05/29/18 15:22 98.2 05/29/18 15:14 18 05/29/18 15:12 18 05/29/18 14:52 98.2 Intake and Output 05/29/18 05/30/18 19:00 07:00 Intake Total 607.5 ml 1380 ml Output Total 1400 ml 3000 ml Balance -792.5 ml -1620 ml Intake Oral 480 ml 880 ml IV Total 127.5 ml 500 ml Output Urine Total 1400 ml 3000 ml # Voids 3 Height (Feet): 6 Height (Inches): 2.00 Weight (Pounds): 172 General Appearance: no apparent distress EENT: PERRL/EOMI Neck: normal alignment Cardiovascular: normal peripheral pulses Respiratory/Chest: no respiratory distress Abdomen: soft Chris Quick MD May 30, 2018 14:16
--- NOTE | 2018-05-30 14:22 | General Progress Note ---
Assessment/Plan Status: stable Assessment/Plan (1) Hidradenitis Gluteal abscess/infection/cellulitis admitted with open wounds, draining purulent fluid signs of systemic infection on labs (leukocytosis) Lactic acid slightly elevated on admission Plastic surgery evaluation appreciated- s/p debridement of infected wounds/ gluteal abscess 05/24 with second stage procedure 05/27 continue broad spectrum IV antibiotics Plan for exam under anesthesia Thursday Aggressive IVF's Pain control 2) Anemia, acute blood loss Hematology input appreciated s/p 2 units PRBC transfusion 05/26 with good response- follow CBC's closely postop 3)Hyponatremia on admission Likely secondary to hypovolemia IVF's DVT Prophylaxis: scd's Code status: full Hospital Classification declaration: Based on this initial evaluation, and depending on the patient's clinical course, I anticipate that this patient will require hospitalization for 2-3 days. Disposition: Once the patient is stable to leave the hospital, I anticipate the patient will likely be discharged to the following environment: Home with HH vs SNF/ARU I spent 45 minutes on this patient's case, and 23 minutes was dedicated to counseling and/or care coordination. Time of note may not reflect time of encounter. Subjective Date patient seen: May 30, 2018 Time patient seen: 14:21 ROS Limited/Unobtainable: No Constitutional: Reports: no symptoms HEENT: Reports: no symptoms Cardiovascular: Reports: no symptoms Respiratory: Reports: no symptoms Gastrointestinal/Abdominal: Reports: no symptoms Genitourinary: Reports: no symptoms Neurologic/Psychiatric: Reports: no symptoms Endocrine: Reports: no symptoms Hematologic/Lymphatic: Reports: no symptoms Allergies: Coded Allergies: VANCOMYCIN (Verified Adverse Reaction, Unknown, 05/23/18) breakouts and cheek Subjective No acute o/n events POD#3 Pt states pain controlled but still requiring frequent pain meds. Has not been OOB yet. +BM. Denies f/c, n/v, d/c, chest pain, SOB Pt inquiring abt rehab placement for wound care, states he does not think he can manage at home Objective Last 24 Hour Vital Signs Date Time Temp Pulse Resp B/P (MAP) Pulse Ox O2 Delivery O2 Flow Rate FiO2 05/30/18 12:00 19 05/30/18 12:00 99.0 92 20 125/63 (83) 100 99.0 05/30/18 09:00 Room Air 05/30/18 08:00 16 05/30/18 08:00 97.6 74 19 103/54 (70) 97 97.6 05/30/18 04:00 98.2 90 20 145/89 (107) 96 98.2 05/30/18 04:00 17 05/30/18 00:00 18 05/30/18 00:00 99.2 96 18 118/70 (86) 97 99.2 05/29/18 21:00 Room Air 05/29/18 20:00 19 05/29/18 20:00 99.4 99 18 115/72 (86) 97 99.4 05/29/18 16:00 98.2 95 18 114/69 (84) 97 98.2 05/29/18 15:22 98.2 05/29/18 15:14 18 05/29/18 15:12 18 05/29/18 14:52 98.2 Intake and Output 05/29/18 05/30/18 19:00 07:00 Intake Total 607.5 ml 1380 ml Output Total 1400 ml 3000 ml Balance -792.5 ml -1620 ml Intake Oral 480 ml 880 ml IV Total 127.5 ml 500 ml Output Urine Total 1400 ml 3000 ml # Voids 3 Height (Feet): 6 Height (Inches): 2.00 Weight (Pounds): 172 Objective General Appearance: no apparent distress, alert EENT: PERRL/EOMI, normal ENT inspection, TMs normal, pale conjunctivae Neck: non-tender, normal alignment, supple Cardiovascular: normal peripheral pulses, normal rate, regular rhythm Respiratory/Chest: chest wall non-tender, lungs clear, normal breath sounds Abdomen: normal bowel sounds Pelvis: discharge, lesions, ulcers Extremities: normal range of motion Edema: no edema noted Arm (L), no edema noted Arm (R), no edema noted Leg (L), no edema noted Leg (R), no edema noted Pedal (L), no edema noted Pedal (R) Neurologic: 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 May 30, 2018 14:21
[2018-05-30 16:00] VITALS: BP 114/65
[2018-05-30 19:13] LABS: APPEARANCE,URINE CLEAR; BILIRUBIN, URINE NEGATIVE (NEGATIVE); COLOR,URINE PALE YELLOW; GLUCOSE, URINE (UA) NEGATIVE (NEGATIVE); KETONES,URINE NEGATIVE (NEGATIVE); LEUKOCYTE ESTERASE ,URINE NEGATIVE (NEGATIVE); NITRITE,URINE NEGATIVE (NEGATIVE); PH,URINE 8 (4.5-8.0); PROTEIN,URINE NEGATIVE (NEGATIVE); UROBILINOGEN,URINE 1 MG/DL (0.0-1.0)
[2018-05-30 20:00] VITALS: BP 124/64
[2018-05-31] VITALS: BP 108/67
[2018-05-31 04:00] VITALS: BP 111/68
[2018-05-31] MEDS: Piperacillin/Tazobactam 3.375 GM in D5W 110 ML IVPB SCH ×3 (04:14→22:28)
[2018-05-31 06:13] LABS: HEMATOCRIT 28.9 % (42.0-52.0); HEMOGLOBIN 9.1 G/DL (14.2-18.0); MEAN CORPUSCULAR VOLUME 77 FL (80-99); PLATELET COUNT 525 K/UL (150-450); RED BLOOD COUNT 3.73 M/UL (4.70-6.10); RED CELL DISTRIBUTION WIDTH 15.6 % (11.6-14.8); WHITE BLOOD COUNT 18.7 K/UL (4.8-10.8)
[2018-05-31 06:27] LABS: ALANINE AMINOTRANSFERASE 15 U/L (12-78); ALBUMIN 1.9 G/DL (3.4-5.0); ALBUMIN/GLOBULIN RATIO 0.3 (1.0-2.7); ALKALINE PHOSPHATASE 164 U/L (46-116); ANION GAP 3 mmol/L (5-15); ASPARTATE AMINO TRANSFERASE 16 U/L (15-37); BILIRUBIN,TOTAL 0.5 MG/DL (0.2-1.0); BLOOD UREA NITROGEN 5 mg/dL (7-18); CALCIUM 9.8 MG/DL (8.5-10.1); CARBON DIOXIDE 33 MMOL/L (21-32); CHLORIDE 98 MMOL/L (98-107); CREATININE 0.8 MG/DL (0.55-1.30); POTASSIUM 3.2 MMOL/L (3.5-5.1); SODIUM 134 MMOL/L (136-145)
[2018-05-31] MEDS: PCA shift volume MISC SCH (07:00)
[2018-05-31 08:00] VITALS: BP 115/68
[2018-05-31] MEDS: Heparin 5000 units/ml inj SUBQ SCH ×2 (09:00→22:30)
--- NOTE | 2018-05-31 10:28 | General Progress Note ---
Assessment/Plan Assessment/Plan # Anemia of chronic disease, in addition to iron deficiency component, hgb on admission was 10.0 --> Anemia w/u has been reviewed at this time. Will trend CBC as needed. --> Continue to monitor for stability --> Hgb goal above 7. Transfuse as needed on prn basis --> Blood tx: 2 units on 05/26 --> Current Hgb at 9.6, trend as needed # Leukocytosis 2/2 infection/cellulitis is on abx as well as recent debridement --> Continue to monitor WBC for improvement --> also post-op at this point, left groin surgery --> Current WBC 18.5, remains elevated # Thrombocytosis. Reactive process to anemia and will improve. --> if plt count >600k, consider CML --> Continue to closely monitor for improvement --> Current PLT of 437, wnl, stable. # Hidradenitis with gluteal abscess/infection/cellulitis, open wound, draining purulent fluid. --> signs of infection on labs (leukocytosis) --> Lactic acid slightly elevated --> Dr. Miller closely following # Hyponatremia. --> Likely secondary to hypovolemia --> IVF's The time the note was entered does not necessarily correspond to the time the patient was seen. Subjective Constitutional: Denies: no symptoms, chills, diaphoresis, fever, malaise, weakness, other HEENT: Denies: no symptoms, eye pain, blurred vision, tearing, double vision, ear pain, ear discharge, nose pain, nose congestion, throat pain, throat swelling, mouth pain, mouth swelling, other Respiratory: Denies: no symptoms, cough, orthopnea, shortness of breath, SOB with excertion, SOB at rest, sputum, stridor, wheezing, other Gastrointestinal/Abdominal: Denies: no symptoms, abdomen distended, abdominal pain, black stools, tarry stools, blood in stool, constipated, diarrhea, difficulty swallowing, nausea, poor appetite, poor fluid intake, rectal bleeding , vomiting, other Genitourinary: Denies: no symptoms, burning, discharge, frequency, flank pain, hematuria, incontinence, pain, urgency, other Neurologic/Psychiatric: Denies: no symptoms, anxiety, depressed, emotional problems, headache, numbness, paresthesia, pre-existing deficit, seizure, tingling, tremors, weakness, other Endocrine: Denies: no symptoms, excessive sweating, flushing, intolerance to cold, intolerance to heat, increased hunger, increased thirst, increased urine, unexplained weight gain, unexplained weight loss, other Hematologic/Lymphatic: Denies: no symptoms, anemia, easy bleeding, easy bruising, other Allergies: Coded Allergies: VANCOMYCIN (Verified Adverse Reaction, Unknown, 05/23/18) breakouts and cheek Subjective Pt awake and alert. Pt refusing care. Pt refused lab draws twice this morning. Plan for removal of dressings under anesthesia on Thursday Objective Last 24 Hour Vital Signs Date Time Temp Pulse Resp B/P (MAP) Pulse Ox O2 Delivery O2 Flow Rate FiO2 05/31/18 04:00 99.0 89 18 111/68 (82) 98 99.0 05/31/18 04:00 18 05/31/18 00:00 98.8 87 18 108/67 (81) 98 98.8 05/31/18 00:00 18 05/30/18 21:00 Room Air 05/30/18 20:00 17 05/30/18 20:00 99.5 98 20 124/64 (84) 98 99.5 05/30/18 16:00 18 05/30/18 16:00 100.9 96 20 114/65 (81) 98 100.9 05/30/18 12:00 19 05/30/18 12:00 99.0 92 20 125/63 (83) 100 99.0 Intake and Output 05/30/18 05/31/18 19:00 07:00 Intake Total 1270.0 ml 1520 ml Output Total 1175 ml 1400 ml Balance 95.0 ml 120 ml Intake Oral 360 ml 420 ml IV Total 910.0 ml 1100 ml Output Urine Total 1175 ml 1400 ml Laboratory Tests 05/30/18 18:45: Urine Color Pale yellow, Urine Appearance Clear, Urine pH 8, Urine Specific [place] 1.010, Urine Protein Negative, Urine Glucose (UA) Negative, Urine Ketones Negative, Urine Blood Negative, Urine Nitrite Negative, Urine Bilirubin Negative, Urine Urobilinogen 1H, Urine Leukocyte Esterase Negative 05/31/18 04:50: White Blood Count 18.7H, Red Blood Count 3.73L, Hemoglobin 9.1L, Hematocrit 28.9L, Mean Corpuscular Volume 77L, Mean Corpuscular Hemoglobin 24.5L, Mean Corpuscular Hemoglobin Concent 31.7L, Red Cell Distribution Width 15.6H, Platelet Count 525H, Mean Platelet Volume 4.8L, Neutrophils (%) (Auto) , Lymphocytes (%) (Auto) , Monocytes (%) (Auto) , Eosinophils (%) (Auto) , Basophils (%) (Auto) , Differential Total Cells Counted 100, Neutrophils % ( Manual) 79H, Lymphocytes % (Manual) 15L, Monocytes % (Manual) 3, Eosinophils % ( Manual) 3, Basophils % (Manual) 0, Band Neutrophils 0, Platelet Estimate Adequate, Platelet Morphology Normal, Hypochromasia 2+, Anisocytosis 1+, Microcytosis 1+, Sodium Level 134L, Potassium Level 3.2L, Chloride Level 98, Carbon Dioxide Level 33H, Anion Gap 3L, Blood Urea Nitrogen 5L, Creatinine 0.8, Estimat Glomerular Filtration Rate > 60, Glucose Level 107H, Calcium Level 9.8, Total Bilirubin 0.5, Aspartate Amino Transf (AST/SGOT) 16, Alanine Aminotransferase (ALT/SGPT) 15, Alkaline Phosphatase 164H, Total Protein 8.4H, Albumin 1.9L, Globulin 6.5, Albumin/Globulin Ratio 0.3L Height (Feet): 6 Height (Inches): 2.00 Weight (Pounds): 172 General Appearance: no apparent distress EENT: normal ENT inspection Neck: normal alignment Cardiovascular: normal rate Abdomen: non tender Extremities: normal range of motion Edema: mild edema Neurologic: alert Chris Quick MD May 31, 2018 10:28
[2018-05-31] MEDS ORDERED: HYDROcodone/Acetamin 10/325 tab ORAL PRN (11:00)
--- NOTE | 2018-05-31 11:43 | General Progress Note ---
Assessment/Plan Status: progressing Assessment/Plan (1) Hidradenitis Gluteal abscess/infection/cellulitis admitted with open wounds, draining purulent fluid signs of systemic infection on labs (leukocytosis) - still elevated with low grade fevers Lactic acid slightly elevated on admission Plastic surgery evaluation appreciated- s/p debridement of infected wounds/ gluteal abscess 05/24 with second stage procedure 05/27 continue broad spectrum IV antibiotics Plan for exam under anesthesia Thursday Aggressive IVF's Pain control 2) Anemia, acute blood loss Hematology input appreciated s/p 2 units PRBC transfusion 05/26 with good response- follow CBC's closely postop 3)Hyponatremia on admission Likely secondary to hypovolemia IVF's 4) hypokalemia -replete K+ DVT Prophylaxis: scd's, heparin Code status: full Hospital Classification declaration: Based on this initial evaluation, and depending on the patient's clinical course, I anticipate that this patient will require hospitalization for 2-3 days. Disposition: Once the patient is stable to leave the hospital, I anticipate the patient will likely be discharged to the following environment:Home with HH I spent 45 minutes on this patient's case, and 23 minutes was dedicated to counseling and/or care coordination. Time of note may not reflect time of encounter. Subjective Date patient seen: May 31, 2018 Time patient seen: 11:40 ROS Limited/Unobtainable: No Constitutional: Reports: no symptoms HEENT: Reports: no symptoms Cardiovascular: Reports: no symptoms Respiratory: Reports: no symptoms Gastrointestinal/Abdominal: Reports: no symptoms Genitourinary: Reports: burning, pain Neurologic/Psychiatric: Reports: no symptoms Endocrine: Reports: no symptoms Hematologic/Lymphatic: Reports: no symptoms Allergies: Coded Allergies: VANCOMYCIN (Verified Adverse Reaction, Unknown, 05/23/18) breakouts and cheek All Systems: reviewed and negative except above Subjective Events of weekend and overnight noted Chart reviewed by me Pain still present worried about new abscesses Notes some burning with urination Was not taking heparin prophylaxis- after discussion with team agreed to resume No chest pain or dyspnea Objective Last 24 Hour Vital Signs Date Time Temp Pulse Resp B/P (MAP) Pulse Ox O2 Delivery O2 Flow Rate FiO2 05/31/18 09:00 Room Air 05/31/18 08:00 99.2 96 20 115/68 (84) 99 99.2 05/31/18 08:00 20 05/31/18 04:00 99.0 89 18 111/68 (82) 98 99.0 05/31/18 04:00 18 05/31/18 00:00 98.8 87 18 108/67 (81) 98 98.8 05/31/18 00:00 18 05/30/18 21:00 Room Air 05/30/18 20:00 17 05/30/18 20:00 99.5 98 20 124/64 (84) 98 99.5 05/30/18 16:00 18 05/30/18 16:00 100.9 96 20 114/65 (81) 98 100.9 05/30/18 12:00 19 05/30/18 12:00 99.0 92 20 125/63 (83) 100 99.0 Intake and Output 05/30/18 05/31/18 19:00 07:00 Intake Total 1270.0 ml 1520 ml Output Total 1175 ml 1400 ml Balance 95.0 ml 120 ml Intake Oral 360 ml 420 ml IV Total 910.0 ml 1100 ml Output Urine Total 1175 ml 1400 ml Laboratory Tests 05/30/18 18:45: Urine Color Pale yellow, Urine Appearance Clear, Urine pH 8, Urine Specific [place] 1.010, Urine Protein Negative, Urine Glucose (UA) Negative, Urine Ketones Negative, Urine Blood Negative, Urine Nitrite Negative, Urine Bilirubin Negative, Urine Urobilinogen 1H, Urine Leukocyte Esterase Negative 05/31/18 04:50: White Blood Count 18.7H, Red Blood Count 3.73L, Hemoglobin 9.1L, Hematocrit 28.9L, Mean Corpuscular Volume 77L, Mean Corpuscular Hemoglobin 24.5L, Mean Corpuscular Hemoglobin Concent 31.7L, Red Cell Distribution Width 15.6H, Platelet Count 525H, Mean Platelet Volume 4.8L, Neutrophils (%) (Auto) , Lymphocytes (%) (Auto) , Monocytes (%) (Auto) , Eosinophils (%) (Auto) , Basophils (%) (Auto) , Differential Total Cells Counted 100, Neutrophils % ( Manual) 79H, Lymphocytes % (Manual) 15L, Monocytes % (Manual) 3, Eosinophils % ( Manual) 3, Basophils % (Manual) 0, Band Neutrophils 0, Platelet Estimate Adequate, Platelet Morphology Normal, Hypochromasia 2+, Anisocytosis 1+, Microcytosis 1+, Sodium Level 134L, Potassium Level 3.2L, Chloride Level 98, Carbon Dioxide Level 33H, Anion Gap 3L, Blood Urea Nitrogen 5L, Creatinine 0.8, Estimat Glomerular Filtration Rate > 60, Glucose Level 107H, Calcium Level 9.8, Total Bilirubin 0.5, Aspartate Amino Transf (AST/SGOT) 16, Alanine Aminotransferase (ALT/SGPT) 15, Alkaline Phosphatase 164H, Total Protein 8.4H, Albumin 1.9L, Globulin 6.5, Albumin/Globulin Ratio 0.3L Height (Feet): 6 Height (Inches): 2.00 Weight (Pounds): 172 General Appearance: WD/WN, mild distress, thin EENT: PERRL/EOMI, TMs normal, pharynx normal Neck: non-tender, supple Cardiovascular: normal peripheral pulses, normal rate, regular rhythm Respiratory/Chest: chest wall non-tender, lungs clear Abdomen: normal bowel sounds Pelvis: discharge, lesions Genitourinary/Rectal: other - + condom catheter draining clear yellow urine Extremities: normal range of motion, non-tender Edema: no edema noted Arm (L), no edema noted Arm (R), no edema noted Leg (L), no edema noted Leg (R), no edema noted Pedal (L) 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
[2018-05-31 12:00] VITALS: BP 103/61
[2018-05-31 16:00] VITALS: BP 99/64
[2018-05-31 20:00] VITALS: BP 96/90
[2018-05-31] MEDS ORDERED: Naloxone 0.4mg/ml Inj IVP PRN (20:00)
[2018-05-31] MEDS ORDERED: Rate Change PCA 1 Each MISC PRN (20:00)
[2018-05-31] MEDS ORDERED: PCA HYDROmorphone 1mg/ml 30 ML IV PRN (20:00)
[2018-05-31] MEDS ORDERED: LORazepam 1mg tab ORAL PRN (20:00)
[2018-05-31] MEDS ORDERED: PCA Education Pamphlet MISC ONE (20:00)
[2018-05-31] MEDS ORDERED: DiphenhydrAMINE 50mg/ml Inj IVP PRN (20:00)
[2018-06-01] VITALS (15 sets, daily range): BP systolic 85–123; BP diastolic 55–83
[2018-06-01] MEDS: Piperacillin/Tazobactam 3.375 GM in D5W 110 ML IVPB SCH ×3 (05:54→21:09)
--- NOTE | 2018-06-01 06:40 | General Progress Note ---
Assessment/Plan Assessment/Plan # Anemia of chronic disease, in addition to iron deficiency component, hgb on admission was 10.0 --> Anemia w/u has been reviewed at this time. Will trend CBC as needed. --> Continue to monitor for stability --> Hgb goal above 7. Transfuse as needed on prn basis --> Blood tx: 2 units on 05/26 --> Current Hgb at 9.6, trend as needed # Leukocytosis 2/2 infection/cellulitis is on abx as well as recent debridement --> Continue to monitor WBC for improvement --> also post-op at this point, left groin surgery --> Current WBC 18.5, remains elevated --> JAK2 has been ordered # Thrombocytosis. Reactive process to anemia and will improve. --> if plt count >600k, likely related to reactive process, will r/o cml/ET/PV with Flynn 2 --> Continue to closely monitor for improvement --> Current PLT of 437, wnl, stable. # Hidradenitis with gluteal abscess/infection/cellulitis, open wound, draining purulent fluid. --> signs of infection on labs (leukocytosis) --> Lactic acid slightly elevated --> Dr. Miller closely following # Hyponatremia. --> Likely secondary to hypovolemia --> IVF's The time the note was entered does not necessarily correspond to the time the patient was seen. Subjective Constitutional: Denies: no symptoms, chills, diaphoresis, fever, malaise, weakness, other Cardiovascular: Denies: no symptoms, chest pain, edema, irregular heart rate, lightheadedness, palpitations, syncope, other Respiratory: Denies: no symptoms, cough, orthopnea, shortness of breath, SOB with excertion, SOB at rest, sputum, stridor, wheezing, other Genitourinary: Denies: no symptoms, burning, discharge, frequency, flank pain, hematuria, incontinence, pain, urgency, other Neurologic/Psychiatric: Denies: no symptoms, anxiety, depressed, emotional problems, headache, numbness, paresthesia, pre-existing deficit, seizure, tingling, tremors, weakness, other Endocrine: Denies: no symptoms, excessive sweating, flushing, intolerance to cold, intolerance to heat, increased hunger, increased thirst, increased urine, unexplained weight gain, unexplained weight loss, other Allergies: Coded Allergies: VANCOMYCIN (Verified Adverse Reaction, Unknown, 05/23/18) breakouts and cheek Subjective Pt awake and alert. Plan for removal of dressings under anesthesia on Thursday. Wearing scds this am Objective Last 24 Hour Vital Signs Date Time Temp Pulse Resp B/P (MAP) Pulse Ox O2 Delivery O2 Flow Rate FiO2 06/01/18 04:00 17 06/01/18 04:00 99.0 86 18 95/68 (77) 97 99.0 06/01/18 00:30 100/60 (73) 06/01/18 00:00 17 06/01/18 00:00 99.8 99 18 87/55 (66) 96 99.8 05/31/18 21:00 Room Air 05/31/18 20:00 99.9 99 18 96/90 (92) 95 99.9 05/31/18 20:00 17 05/31/18 16:00 98.1 90 18 99/64 (76) 96 98.1 05/31/18 16:00 18 05/31/18 12:00 20 05/31/18 12:00 98.6 94 20 103/61 (75) 97 98.6 05/31/18 09:00 Room Air 05/31/18 08:00 99.2 96 20 115/68 (84) 99 99.2 05/31/18 08:00 20 Intake and Output 05/31/18 06/01/18 19:00 07:00 Intake Total 1640 ml 900 ml Output Total 1600 ml Balance 40 ml 900 ml Intake Oral 740 ml IV Total 900 ml 900 ml Output Urine Total 1600 ml Height (Feet): 6 Height (Inches): 2.00 Weight (Pounds): 172 General Appearance: no apparent distress EENT: normal ENT inspection Neck: normal alignment Cardiovascular: normal rate Respiratory/Chest: chest wall non-tender Abdomen: soft Pelvis: other - groin lesios noted b/l Extremities: non-tender Edema: no edema noted Leg (L), no edema noted Leg (R) Neurologic: no motor/sensory deficits Chris Quick MD Jun 01, 2018 06:40
[2018-06-01] MEDS ORDERED: PCA shift volume MISC SCH (07:00)
[2018-06-01 07:48] LABS: FERRITIN 231 NG/ML (8-388)
[2018-06-01 08:02] LABS: IRON 14 ug/dL (50-175); TOTAL IRON BINDING CAPACITY 148 ug/dL (250-450)
[2018-06-01 08:04] LABS: % IRON SATURATION 9 % (15-50)
[2018-06-01] MEDS: Heparin 5000 units/ml inj SUBQ SCH ×2 (08:51→21:00)
[2018-06-01] MEDS ORDERED: Lidocaine 1% 10mg/ml/Epi 0.005mg/ml 30ml vial INJ ONE (09:14)
[2018-06-01] MEDS ORDERED: Bacitracin 50000 Units Vial ONE (09:15)
--- NOTE | 2018-06-01 09:38 | Pre-Procedure Note/Attestation ---
Pre-Procedure Note/Attestation Complete Prior to Procedure Planned Procedure: bilateral Procedure Narrative: Examination under anesthesia Attestation I attest that I discussed the nature of the procedure; its benefits; risks and complications; and alternatives (and the risks and benefits of such alternatives ), prior to the procedure, with the patient (or the patient's legal insurance claim representative). I attest that, if there was a reasonable possibility of needing a blood transfusion, the patient (or the patient's legal insurance claim representative) was given the [facility] standardized written summary, pursuant to the Connor Alli Blood Safety Act ([place] Health and Safety Code # 1645, as amended). I attest that I re-evaluated the patient just prior to the surgery and that there has been no change in the patient's H&P, except as documented below: RENEA MAYS Jun 01, 2018 09:38
[2018-06-01] MEDS ORDERED: Midazolam 2mg/2ml Inj ONE (09:39)
[2018-06-01] MEDS ORDERED: fentaNYL 100 mcg/2 mL IV ONE (09:39)
[2018-06-01] MEDS ORDERED: Propofol 200mg/20ml IV ONE (09:40)
[2018-06-01] MEDS ORDERED: Lidocaine 1% MPF 10mg/ml 5ml ONE (09:40)
[2018-06-01] MEDS ORDERED: PCA HYDROmorphone 1mg/ml 30 ML IV PRN (09:45)
[2018-06-01] MEDS ORDERED: Hydrogen Peroxide 473ml Bottle TOPIC ONE (10:16)
--- NOTE | 2018-06-01 10:27 | Operative Note - PDOC ---
Operative Note Operative Note Procedure: Examination under anesthesia Surgeon: jesús Perinatal Technician: sivan Anesthesia: general Specimen: yes Estimated Blood Loss: minimal Drains: none Implant(s) used?: No RENEA MAYS Jun 01, 2018 10:27
--- NOTE | 2018-06-01 10:45 | Immediate Post-Op Evaluation ---
Immediate Post-Op Evalulation Immediate Post-Op Evalulation Procedure: Dressing change under anesthesia Date of Evaluation: Jun 01, 2018 Time of Evaluation: 10:44 IV Fluids: 300 Blood Products: none Estimated Blood Loss: min Urinary Output: none Blood Pressure Systolic: 122 Blood Pressure Diastolic: 78 Pulse Rate: 86 Respiratory Rate: 20 O2 Sat by Pulse Oximetry: 99 Temperature (Fahrenheit): 98.8 Pain Score (1-10): 2 Nausea: No Vomiting: No Complications none Patient Status: awake, patent, none Hydration Status: adequate Omar Mratinez MD Jun 01, 2018 10:45
[2018-06-01] MEDS ORDERED: Ketorolac 30mg Inj IV PRN (11:03)
[2018-06-01] MEDS ORDERED: Meperidine 50mg/ml Inj(FOR RIGORS ONLY) IV PRN (11:04)
[2018-06-01] MEDS ORDERED: LR 1000ml 1,000 ML IVLG SCH (11:04)
[2018-06-01] MEDS ORDERED: DiphenhydrAMINE 50mg/ml Inj IVP PRN ×2 (11:04→12:00)
[2018-06-01] MEDS ORDERED: fentaNYL 100 mcg/2 mL IV PRN (11:05)
[2018-06-01] MEDS ORDERED: PCA Education Pamphlet MISC SCH (12:00)
[2018-06-01] MEDS ORDERED: Rate Change PCA 1 Each MISC PRN (13:00)
--- NOTE | 2018-06-01 14:31 | General Progress Note ---
Assessment/Plan Status: progressing Assessment/Plan (1) Hidradenitis Gluteal abscess/infection/cellulitis admitted with open wounds, draining purulent fluid signs of systemic infection on labs (leukocytosis) - still elevated with low grade fevers Lactic acid slightly elevated on admission Plastic surgery evaluation appreciated- s/p debridement of infected wounds/ gluteal abscess 05/24 with second stage procedure 05/27 continue broad spectrum IV antibiotics s/p exam under anesthesia today Aggressive IVF's as needed Pain control 2) Anemia, acute blood loss Hematology input appreciated s/p 2 units PRBC transfusion 05/26 with good response- follow CBC's closely postop 3)Hyponatremia on admission Likely secondary to hypovolemia IVF's 4) hypokalemia -replete K+ PRN PT/OT when bedrest discontinued DVT Prophylaxis: scd's, heparin Code status: full Hospital Classification declaration: Based on this initial evaluation, and depending on the patient's clinical course, I anticipate that this patient will require hospitalization for 2-3 days. Disposition: Once the patient is stable to leave the hospital, I anticipate the patient will likely be discharged to the following environment:[facility] vs Home with HH I spent 45 minutes on this patient's case, and 23 minutes was dedicated to counseling and/or care coordination. Time of note may not reflect time of encounter. Subjective Date patient seen: Jun 01, 2018 Time patient seen: 14:40 ROS Limited/Unobtainable: No Constitutional: Reports: no symptoms HEENT: Reports: no symptoms Cardiovascular: Reports: no symptoms Respiratory: Reports: no symptoms Gastrointestinal/Abdominal: Reports: constipated Genitourinary: Reports: pain Neurologic/Psychiatric: Reports: no symptoms Endocrine: Reports: no symptoms Hematologic/Lymphatic: Reports: no symptoms Allergies: Coded Allergies: VANCOMYCIN (Verified Adverse Reaction, Unknown, 05/23/18) breakouts and cheek All Systems: reviewed and negative except above Subjective Events of overnight noted Chart reviewed by me Pain still present s/p exam under anesthesia and dressing changes by Plastic surgery resting comfortably post procedure Objective Last 24 Hour Vital Signs Date Time Temp Pulse Resp B/P (MAP) Pulse Ox O2 Delivery O2 Flow Rate FiO2 06/01/18 12:00 97.4 87 18 108/63 (78) 98 97.4 06/01/18 12:00 98.9 06/01/18 12:00 18 06/01/18 11:50 18 9/4/18 11:40 98.9 89 20 106/67 100 Nasal Cannula 3 98.9 06/01/18 11:35 98.9 06/01/18 11:35 20 06/01/18 11:30 85 21 104/71 100 Nasal Cannula 3 06/01/18 11:30 99.2 06/01/18 11:20 89 23 110/78 100 Nasal Cannula 3 06/01/18 11:20 21 06/01/18 11:05 20 06/01/18 11:05 90 18 104/71 100 Nasal Cannula 3 06/01/18 11:05 99.4 06/01/18 10:55 92 18 107/72 99 Nasal Cannula 3 06/01/18 10:45 209.8 86 20 99 06/01/18 10:44 96 20 109/69 99 Simple Mask 6 06/01/18 10:39 97 14 123/75 100 Simple Mask 6 06/01/18 10:34 99.4 102 20 122/83 100 Simple Mask 6 99.4 06/01/18 08:30 Room Air 06/01/18 08:00 18 06/01/18 08:00 98.6 90 18 85/58 (67) 100 98.6 06/01/18 04:00 17 06/01/18 04:00 99.0 86 18 95/68 (77) 97 99.0 06/01/18 00:30 100/60 (73) 06/01/18 00:00 17 06/01/18 00:00 99.8 99 18 87/55 (66) 96 99.8 05/31/18 21:00 Room Air 05/31/18 20:00 99.9 99 18 96/90 (92) 95 99.9 05/31/18 20:00 17 05/31/18 16:00 98.1 90 18 99/64 (76) 96 98.1 05/31/18 16:00 18 Intake and Output 05/31/18 06/01/18 19:00 07:00 Intake Total 1640 ml 1367.5 ml Output Total 1600 ml 2525 ml Balance 40 ml -1157.5 ml Intake Oral 740 ml 240 ml IV Total 900 ml 1127.5 ml Output Urine Total 1600 ml 2525 ml Laboratory Tests 06/01/18 07:05: Reticulocyte Count 2.4H, Sickle Cell Screen [Pending], Prothrombin Time 11.0, Prothromb Time International Ratio 1.0, Jak2 V617F Mutation Detection [Pending] , JAK2 V617F Mutation Background [Pending], JAK2 V617F Reviewed By [Pending], Iron Level 14L, Total Iron Binding Capacity 148L, Percent Iron Saturation 9L, Unsaturated Iron Binding 134, Ferritin 231, Vitamin B12 Level 684, Folate 9.2, Thyroid Stimulating Hormone (TSH) 1.365 Height (Feet): 6 Height (Inches): 2.00 Weight (Pounds): 172 General Appearance: no apparent distress, other - somnolent, easily arousable EENT: PERRL/EOMI, normal ENT inspection, TMs normal, pharynx normal, pale conjunctivae Neck: non-tender, supple, normal inspection Cardiovascular: normal peripheral pulses, normal rate, regular rhythm Respiratory/Chest: chest wall non-tender, lungs clear Abdomen: normal bowel sounds, non tender, soft Pelvis: lesions Genitourinary/Rectal: other - condom catheter in place; dressings c/d/i Edema: no edema noted Arm (L), no edema noted Arm (R), no edema noted Leg (L), no edema noted Leg (R) Neurologic: no motor/sensory deficits Skin: normal pigmentation, warm/dry Lymphatic: normal anterior cervical (L), normal anterior cervical (R) Duke Lovell MD Jun 01, 2018 14:31
[2018-06-01] MEDS: Docusate 100mg cap ORAL SCH (17:55)
--- NOTE | 2018-06-01 18:45 | Operative Note - Dictated ---
DATE OF OPERATION: 06/01/2018 PREOPERATIVE DIAGNOSIS: Status post perineal reconstruction with flap closure and skin graft. POSTOPERATIVE DIAGNOSIS: Status post perineal reconstruction with flap closure and skin graft. PROCEDURES: Examination under anesthesia. ANESTHESIA: General. COMPLICATIONS: None. DRAINS: None. SURGEON: Miguel Dixon M.D. MANAGER RESOURCE: Areli Aragon M.D. DISPOSITION: Stable to recovery room. INDICATIONS FOR SURGERY: This is a 38-year-old male, who is now five days status post flap closure of his perineal wound with skin graft as well, who is now presenting to the operating room for exam under anesthesia. DETAILS OF PROCEDURE: The patient was brought to the operating room and laid in the supine position on the operating table. After induction of anesthesia, he was placed in lithotomy, the perineal region was examined by removing all the bolster dressings over the skin graft. The flap closure of the superior aspect of both wounds was intact. The skin graft had approximately a 70% take on the right and a 65% take on the left with some superior aspects of the skin graft not having adhered to the wound base. There was no evidence of any infection. The remainder of the wound was clean and the plan will be to perform dressing changes daily with Adaptic to allow for the remainder of the wound to heal. I anticipate that given the greater than 50% skin graft take that the remainder of the wound should heal epithelialized with time. Miguel Dixon M.D. DR: BRANDON JOB#: [id number] CC:
[2018-06-01] MEDS: PCA shift volume MISC SCH (19:11)
[2018-06-01] MEDS ORDERED: Zolpidem 5mg tab ORAL PRN (21:00)
[2018-06-01] MEDS ORDERED: Heparin 5000 units/ml inj SUBQ SCH (21:00)
[2018-06-02] VITALS: BP 110/62
[2018-06-02] MEDS: Piperacillin/Tazobactam 3.375 GM in D5W 110 ML IVPB SCH ×3 (04:15→21:14)
[2018-06-02 04:32] VITALS: BP 107/57
--- NOTE | 2018-06-02 06:05 | General Progress Note ---
Assessment/Plan Assessment/Plan # Anemia of chronic disease, in addition to iron deficiency component, hgb on admission was 10.0 --> Anemia w/u has been reviewed at this time. Will trend CBC as needed. --> Continue to monitor for stability --> Hgb goal above 7. Transfuse as needed on prn basis --> Blood tx: 2 units on 05/26 --> Current Hgb at 9.6, trend as needed # Leukocytosis 2/2 infection/cellulitis is on abx as well as recent debridement --> Continue to monitor WBC for improvement --> also post-op at this point, left groin surgery --> Current WBC 18.5, remains elevated --> JAK2 has been ordered/results pending # Thrombocytosis. Reactive process to anemia and will improve. --> if plt count >600k, likely related to reactive process, will r/o cml/ET/PV with Flynn 2 --> Continue to closely monitor for improvement --> Current PLT of 437, wnl, stable. # Hidradenitis with gluteal abscess/infection/cellulitis, open wound, draining purulent fluid. --> signs of infection on labs (leukocytosis) --> Lactic acid slightly elevated --> Dr. Miller closely following # Hyponatremia. --> Likely secondary to hypovolemia --> IVF's The time the note was entered does not necessarily correspond to the time the patient was seen. Subjective Constitutional: Denies: no symptoms, chills, diaphoresis, fever, malaise, weakness, other HEENT: Denies: no symptoms, eye pain, blurred vision, tearing, double vision, ear pain, ear discharge, nose pain, nose congestion, throat pain, throat swelling, mouth pain, mouth swelling, other Cardiovascular: Denies: no symptoms, chest pain, edema, irregular heart rate, lightheadedness, palpitations, syncope, other Respiratory: Denies: no symptoms, cough, orthopnea, shortness of breath, SOB with excertion, SOB at rest, sputum, stridor, wheezing, other Gastrointestinal/Abdominal: Denies: no symptoms, abdomen distended, abdominal pain, black stools, tarry stools, blood in stool, constipated, diarrhea, difficulty swallowing, nausea, poor appetite, poor fluid intake, rectal bleeding , vomiting, other Genitourinary: Denies: no symptoms, burning, discharge, frequency, flank pain, hematuria, incontinence, pain, urgency, other Neurologic/Psychiatric: Denies: no symptoms, anxiety, depressed, emotional problems, headache, numbness, paresthesia, pre-existing deficit, seizure, tingling, tremors, weakness, other Endocrine: Denies: no symptoms, excessive sweating, flushing, intolerance to cold, intolerance to heat, increased hunger, increased thirst, increased urine, unexplained weight gain, unexplained weight loss, other Hematologic/Lymphatic: Denies: no symptoms, anemia, easy bleeding, easy bruising, other Allergies: Coded Allergies: VANCOMYCIN (Verified Adverse Reaction, Unknown, 05/23/18) breakouts and cheek Subjective Pt awake and alert. Plan for removal of dressings yesterday, eatig today Objective Last 24 Hour Vital Signs Date Time Temp Pulse Resp B/P (MAP) Pulse Ox O2 Delivery O2 Flow Rate FiO2 06/02/18 04:32 98.9 90 17 107/57 (74) 97 98.9 06/02/18 04:00 18 06/02/18 00:00 99.1 95 20 110/62 (78) 96 99.1 06/02/18 00:00 19 06/01/18 21:00 Nasal Cannula 2.0 06/01/18 20:18 99.4 99 19 107/58 (74) 96 99.4 06/01/18 20:00 18 06/01/18 16:00 18 06/01/18 16:00 97.3 87 18 116/62 (80) 99 97.3 06/01/18 12:00 97.4 87 18 108/63 (78) 98 97.4 06/01/18 12:00 98.9 06/01/18 12:00 18 06/01/18 11:50 18 06/01/18 11:40 98.9 89 20 106/67 100 Nasal Cannula 3 98.9 06/01/18 11:35 98.9 06/01/18 11:35 20 06/01/18 11:30 85 21 104/71 100 Nasal Cannula 3 06/01/18 11:30 99.2 06/01/18 11:20 89 23 110/78 100 Nasal Cannula 3 06/01/18 11:20 21 06/01/18 11:05 20 06/01/18 11:05 90 18 104/71 100 Nasal Cannula 3 06/01/18 11:05 99.4 06/01/18 10:55 92 18 107/72 99 Nasal Cannula 3 06/01/18 10:45 209.8 86 20 99 06/01/18 10:44 96 20 109/69 99 Simple Mask 6 06/01/18 10:39 97 14 123/75 100 Simple Mask 6 06/01/18 10:34 99.4 102 20 122/83 100 Simple Mask 6 99.4 06/01/18 08:30 Room Air 06/01/18 08:00 18 06/01/18 08:00 98.6 90 18 85/58 (67) 100 98.6 Intake and Output 06/01/18 06/02/18 19:00 07:00 Intake Total 909.17 ml 400 ml Output Total 820 ml Balance 89.17 ml 400 ml IV Total 909.17 ml 400 ml Output Urine Total 800 ml Estimated Blood Loss 20 ml Laboratory Tests 06/01/18 07:05: Reticulocyte Count 2.4H, Sickle Cell Screen [Pending], Prothrombin Time 11.0, Prothromb Time International Ratio 1.0, Jak2 V617F Mutation Detection [Pending] , JAK2 V617F Mutation Background [Pending], JAK2 V617F Reviewed By [Pending], Iron Level 14L, Total Iron Binding Capacity 148L, Percent Iron Saturation 9L, Unsaturated Iron Binding 134, Ferritin 231, Vitamin B12 Level 684, Folate 9.2, Thyroid Stimulating Hormone (TSH) 1.365 Height (Feet): 6 Height (Inches): 2.00 Weight (Pounds): 172 General Appearance: no apparent distress EENT: normal ENT inspection Neck: normal alignment Cardiovascular: regular rhythm Respiratory/Chest: lungs clear Abdomen: soft Extremities: non-tender Edema: 1+ Leg (L), 1+ Leg (R) Edema: mild edema Neurologic: alert Skin: warm/dry Chris Quick MD Jun 02, 2018 06:05
[2018-06-02] MEDS: PCA shift volume MISC SCH ×2 (07:18→19:00)
[2018-06-02 08:00] VITALS: BP 115/60
[2018-06-02] MEDS: Heparin 5000 units/ml inj SUBQ SCH ×2 (09:00→21:00)
[2018-06-02] MEDS: Docusate 100mg cap ORAL SCH ×2 (09:10→17:21)
--- NOTE | 2018-06-02 09:14 | 48 Hour Post Anesthesia Eval ---
Post Anesthesia Evaluation Procedure: Dressing change under anesthesia Date of Evaluation: Jun 02, 2018 Time of Evaluation: 09:12 Blood Pressure Systolic: 112 0: 58 Pulse Rate: 72 Respiratory Rate: 20 Temperature (Fahrenheit): 97.6 O2 Sat by Pulse Oximetry: 98 Airway: patent Nausea: No Vomiting: No Pain Intensity: 3 Hydration Status: adequate Cardiopulmonary Status: stable Mental Status/LOC: patient returned to baseline Follow-up Care/Observations: n/a Post-Anesthesia Complications: none Follow-up care needed: N/A Omar Martinez MD Jun 02, 2018 09:14
[2018-06-02 12:00] VITALS: BP 117/64
[2018-06-02 16:00] VITALS: BP 112/71
--- NOTE | 2018-06-02 16:25 | General Progress Note ---
Assessment/Plan Status: progressing Assessment/Plan (1) Hidradenitis Gluteal abscess/infection/cellulitis admitted with open wounds, draining purulent fluid signs of systemic infection on labs (leukocytosis) - still elevated with low grade fevers Lactic acid slightly elevated on admission Plastic surgery evaluation appreciated- s/p debridement of infected wounds/ gluteal abscess 05/24 with second stage procedure 05/27 continue broad spectrum IV antibiotics s/p xam under anesthesia 06/01 Aggressive IVF's as needed Pain control 2) Anemia, acute blood loss Hematology input appreciated s/p 2 units PRBC transfusion 05/26 with good response- follow CBC's closely postop 3)Hyponatremia on admission Likely secondary to hypovolemia IVF's 4) hypokalemia -replete K+ PRN Bedrest for one more day then PT/OT- will verify with Plastics team Bowel regimen given 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 (Last BM at admission) DVT Prophylaxis: scd's, heparin Code status: full Hospital Classification declaration: Based on this initial evaluation, and depending on the patient's clinical course, I anticipate that this patient will require hospitalization for 2-3 days. Disposition: Once the patient is stable to leave the hospital, I anticipate the patient will likely be discharged to the following environment:[facility] I spent 45 minutes on this patient's case, and 23 minutes was dedicated to counseling and/or care coordination. Time of note may not reflect time of encounter. Subjective Date patient seen: Jun 02, 2018 Time patient seen: 13:25 ROS Limited/Unobtainable: No Constitutional: Reports: malaise HEENT: Reports: no symptoms Cardiovascular: Reports: no symptoms Respiratory: Reports: no symptoms Gastrointestinal/Abdominal: Reports: constipated Genitourinary: Reports: pain Neurologic/Psychiatric: Reports: no symptoms Endocrine: Reports: no symptoms Hematologic/Lymphatic: Reports: no symptoms Allergies: Coded Allergies: VANCOMYCIN (Verified Adverse Reaction, Unknown, 05/23/18) breakouts and cheek All Systems: reviewed and negative except above Subjective Events overnight noted Chart reviewed by me 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 No fevers or chills Objective Last 24 Hour Vital Signs Date Time Temp Pulse Resp B/P (MAP) Pulse Ox O2 Delivery O2 Flow Rate FiO2 06/02/18 16:00 20 06/02/18 12:00 20 06/02/18 12:00 98.5 92 20 117/64 (81) 98 98.5 06/02/18 09:14 207.7 72 20 98 06/02/18 09:00 Room Air 06/02/18 08:00 20 06/02/18 08:00 98.5 89 20 115/60 (78) 95 98.5 06/02/18 04:32 98.9 90 17 107/57 (74) 97 98.9 06/02/18 04:00 18 06/02/18 00:00 99.1 95 20 110/62 (78) 96 99.1 06/02/18 00:00 19 06/01/18 21:00 Nasal Cannula 2.0 06/01/18 20:18 99.4 99 19 107/58 (74) 96 99.4 06/01/18 20:00 18 Intake and Output 06/01/18 06/02/18 19:00 07:00 Intake Total 909.17 ml 880 ml Output Total 820 ml 1800 ml Balance 89.17 ml -920 ml Intake Oral 480 ml IV Total 909.17 ml 400 ml Output Urine Total 800 ml 1800 ml Estimated Blood Loss 20 ml # Voids 2 Height (Feet): 6 Height (Inches): 2.00 Weight (Pounds): 190 General Appearance: no apparent distress, alert EENT: PERRL/EOMI, normal ENT inspection, TMs normal, pharynx normal, pale conjunctivae Neck: non-tender, supple Cardiovascular: normal peripheral pulses, normal rate, regular rhythm Respiratory/Chest: chest wall non-tender, lungs clear Abdomen: non tender, soft, decreased bowel sounds Pelvis: other - dressings c/d/i Extremities: normal range of motion Edema: no edema noted Arm (L), no edema noted Arm (R), no edema noted Leg (L), no edema noted Leg (R) Neurologic: child monitor II-XII grossly normal, alert, oriented x 3 Skin: normal pigmentation Lymphatic: normal anterior cervical (L), normal anterior cervical (R) Duke Lovell MD Jun 02, 2018 16:25
[2018-06-02 20:00] VITALS: BP 128/67
[2018-06-03 00:09] VITALS: BP 120/64
[2018-06-03 04:00] VITALS: BP 105/57
[2018-06-03] MEDS: Piperacillin/Tazobactam 3.375 GM in D5W 110 ML IVPB SCH ×3 (04:14→20:19)
[2018-06-03] MEDS: PCA shift volume MISC SCH ×2 (07:02→19:16)
[2018-06-03 08:00] VITALS: BP 100/57
[2018-06-03] MEDS: Heparin 5000 units/ml inj SUBQ SCH ×2 (08:56→20:56)
[2018-06-03] MEDS: Docusate 100mg cap ORAL SCH ×2 (08:57→17:30)
[2018-06-03] MEDS ORDERED: PCA HYDROmorphone 1mg/ml 30 ML IV PRN (09:00)
[2018-06-03] MEDS ORDERED: Naloxone 0.4mg/ml Inj IVP PRN (09:00)
[2018-06-03] MEDS ORDERED: Rate Change PCA 1 Each MISC PRN (09:00)
[2018-06-03 12:00] VITALS: BP 91/50
--- NOTE | 2018-06-03 13:50 | General Progress Note ---
Assessment/Plan Status: progressing Assessment/Plan (1) Hidradenitis Gluteal abscess/infection/cellulitis admitted with open wounds, draining purulent fluid signs of systemic infection on labs (leukocytosis) - still elevated with low grade fevers- now improving Lactic acid slightly elevated on admission Plastic surgery evaluation appreciated- s/p debridement of infected wounds/ gluteal abscess 05/24 with second stage procedure 05/27 continue broad spectrum IV antibiotics s/p exam under anesthesia 06/01 continue complex wound care Aggressive IVF's as needed Pain control 2) Anemia, acute blood loss Hematology input appreciated s/p 2 units PRBC transfusion 05/26 with good response- follow CBC's closely postop 3)Hyponatremia on admission Likely secondary to hypovolemia IVF's 4) hypokalemia -replete K+ PRN Severe deconditioning- PT/OT- today Bowel regimen- had BM today DVT Prophylaxis: scd's, heparin Code status: full Hospital Classification declaration: Based on this initial evaluation, and depending on the patient's clinical course, I anticipate that this patient will require hospitalization for 2-3 days. Disposition: Once the patient is stable to leave the hospital, I anticipate the patient will likely be discharged to the following environment:[facility] I spent 45 minutes on this patient's case, and 23 minutes was dedicated to counseling and/or care coordination. Time of note may not reflect time of encounter. Subjective Date patient seen: Jun 03, 2018 Time patient seen: 11:00 ROS Limited/Unobtainable: No Constitutional: Reports: malaise, weakness HEENT: Reports: no symptoms Cardiovascular: Reports: no symptoms Gastrointestinal/Abdominal: Reports: no symptoms Genitourinary: Reports: pain Neurologic/Psychiatric: Reports: no symptoms Endocrine: Reports: no symptoms Hematologic/Lymphatic: Reports: no symptoms Allergies: Coded Allergies: VANCOMYCIN (Verified Adverse Reaction, Unknown, 05/23/18) breakouts and cheek All Systems: reviewed and negative except above Subjective Events overnight noted Chart reviewed by me Pain controlled Large BM this AM No fevers or chills Objective Last 24 Hour Vital Signs Date Time Temp Pulse Resp B/P (MAP) Pulse Ox O2 Delivery O2 Flow Rate FiO2 06/03/18 11:42 20 06/03/18 09:00 Room Air 06/03/18 08:00 97.4 83 18 100/57 (71) 96 97.4 06/03/18 08:00 18 06/03/18 04:00 18 06/03/18 04:00 98.4 95 18 105/57 (73) 97 98.4 06/03/18 00:09 99.5 97 17 120/64 (82) 95 99.5 06/03/18 00:00 18 06/02/18 21:00 Room Air 06/02/18 20:00 100.0 113 18 128/67 (87) 96 100.0 06/02/18 20:00 19 06/02/18 16:00 98.1 91 20 112/71 (85) 99 98.1 06/02/18 16:00 20 Intake and Output 06/02/18 06/03/18 19:00 07:00 Intake Total 1627.5 ml 1200 ml Output Total 1100 ml 2800 ml Balance 527.5 ml -1600 ml Intake Oral 890 ml 800 ml IV Total 737.5 ml 400 ml Output Urine Total 1100 ml 2800 ml # Voids 1 # Bowel Movements 1 Height (Feet): 6 Height (Inches): 2.00 Weight (Pounds): 190 General Appearance: no apparent distress, alert, thin EENT: PERRL/EOMI, normal ENT inspection, TMs normal, pharynx normal Neck: non-tender, supple Cardiovascular: normal peripheral pulses, normal rate, regular rhythm Respiratory/Chest: chest wall non-tender, lungs clear Abdomen: normal bowel sounds, non tender, soft Pelvis: lesions, other - dressings c/d/i Extremities: non-tender Edema: no edema noted Arm (L), no edema noted Arm (R) 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
[2018-06-03 16:00] VITALS: BP 115/59
[2018-06-03 20:00] VITALS: BP 109/60
[2018-06-04] VITALS: BP 114/61
[2018-06-04 04:00] VITALS: BP 104/61
[2018-06-04] MEDS: Piperacillin/Tazobactam 3.375 GM in D5W 110 ML IVPB SCH ×3 (04:24→20:54)
[2018-06-04] MEDS: PCA shift volume MISC SCH ×2 (07:30→19:24)
[2018-06-04 08:00] VITALS: BP 109/54
[2018-06-04] MEDS: Docusate 100mg cap ORAL SCH ×2 (08:43→17:59)
[2018-06-04] MEDS: Heparin 5000 units/ml inj SUBQ SCH ×2 (08:45→20:54)
[2018-06-04 12:00] VITALS: BP 113/61
--- NOTE | 2018-06-04 12:33 | General Progress Note ---
Assessment/Plan Assessment/Plan # Anemia of chronic disease, in addition to iron deficiency component, hgb on admission was 10.0--> 9.1 --> Anemia w/u has been reviewed at this time. Will trend CBC as needed. --> Continue to monitor for stability --> Hgb goal above 7. Transfuse as needed on prn basis --> Blood tx: 2 units on 05/26 --> Current Hgb at 9.6, trend as needed # Leukocytosis 2/2 infection/cellulitis is on abx as well as recent debridement --> Continue to monitor WBC for improvement --> also post-op at this point, left groin surgery --> Current WBC 18.5, remains elevated --> JAK2 has been ordered/results pending # Thrombocytosis. Reactive process to anemia and will improve. --> if plt count >600k, likely related to reactive process, will r/o cml/ET/PV with Flynn 2 --> Continue to closely monitor for improvement --> Current PLT of 437, wnl, stable. # Hidradenitis with gluteal abscess/infection/cellulitis, open wound, draining purulent fluid. --> signs of infection on labs (leukocytosis) --> Lactic acid slightly elevated --> Dr. Miller closely following # Hyponatremia. --> Likely secondary to hypovolemia --> IVF's The time the note was entered does not necessarily correspond to the time the patient was seen. Subjective Constitutional: Reports: no symptoms HEENT: Reports: no symptoms Cardiovascular: Reports: no symptoms Respiratory: Reports: no symptoms Gastrointestinal/Abdominal: Reports: poor fluid intake Genitourinary: Reports: no symptoms Neurologic/Psychiatric: Reports: anxiety Endocrine: Reports: other Hematologic/Lymphatic: Reports: no symptoms Allergies: Coded Allergies: VANCOMYCIN (Verified Adverse Reaction, Unknown, 05/23/18) breakouts and cheek Subjective Pt awake and alert. Plan for removal of dressings yesterday, cbc has been reviewed Objective Last 24 Hour Vital Signs Date Time Temp Pulse Resp B/P (MAP) Pulse Ox O2 Delivery O2 Flow Rate FiO2 06/04/18 09:00 Room Air 06/04/18 08:00 99.0 91 18 109/54 (72) 98 99.0 06/04/18 08:00 18 9/7/18 04:00 98.7 85 19 104/61 (75) 98 98.7 06/04/18 04:00 19 06/04/18 00:00 18 06/04/18 00:00 100.0 97 18 114/61 (78) 95 100.0 06/03/18 21:00 Room Air 06/03/18 20:00 99.5 94 19 109/60 (76) 97 99.5 06/03/18 20:00 18 06/03/18 16:00 99.4 86 18 115/59 (77) 94 99.4 06/03/18 16:00 20 Intake and Output 06/03/18 06/04/18 19:00 07:00 Intake Total 1910.0 ml 925.0 ml Output Total 900 ml 600 ml Balance 1010.0 ml 325.0 ml Intake Oral 1000 ml 360 ml IV Total 910.0 ml 565.0 ml Output Urine Total 900 ml 600 ml Stool Total 0 ml Height (Feet): 6 Height (Inches): 2.00 Weight (Pounds): 190 General Appearance: no apparent distress EENT: TMs normal Neck: supple Cardiovascular: normal rate Respiratory/Chest: normal breath sounds Abdomen: no organomegaly Extremities: normal inspection Edema: 1+ Leg (L), 1+ Leg (R) Edema: mild edema Neurologic: alert Chris Quick MD Jun 04, 2018 12:33
--- NOTE | 2018-06-04 14:27 | General Progress Note ---
Assessment/Plan Status: progressing Assessment/Plan ((1) Hidradenitis Gluteal abscess/infection/cellulitis admitted with open wounds, draining purulent fluid signs of systemic infection on labs (leukocytosis) - still elevated with low grade fevers- now improving Lactic acid slightly elevated on admission Plastic surgery evaluation appreciated- s/p debridement of infected wounds/ gluteal abscess 05/24 with second stage procedure 05/27 continue broad spectrum IV antibiotics s/p exam under anesthesia 06/01 continue complex wound care Aggressive IVF's as needed Pain control 2) Anemia, acute blood loss Hematology input appreciated s/p 2 units PRBC transfusion 05/26 with good response- follow CBC's closely postop 3)Hyponatremia on admission Likely secondary to hypovolemia IVF's 4) hypokalemia -replete K+ PRN Severe deconditioning- continue PT/OT- Bowel regimen- had BM yesterday DVT Prophylaxis: scd's, heparin Code status: full Hospital Classification declaration: Based on this initial evaluation, and depending on the patient's clinical course, I anticipate that this patient will require hospitalization for 4-7 days. Disposition: Once the patient is stable to leave the hospital, I anticipate the patient will likely be discharged to the following environment:[facility] I spent 45 minutes on this patient's case, and 23 minutes was dedicated to counseling and/or care coordination. Time of note may not reflect time of encounter. Subjective Date patient seen: Jun 04, 2018 Time patient seen: 12:25 ROS Limited/Unobtainable: No Constitutional: Reports: malaise, weakness HEENT: Reports: no symptoms Cardiovascular: Reports: no symptoms Respiratory: Reports: no symptoms Gastrointestinal/Abdominal: Reports: no symptoms Genitourinary: Reports: pain Neurologic/Psychiatric: Reports: no symptoms Endocrine: Reports: no symptoms Hematologic/Lymphatic: Reports: no symptoms Allergies: Coded Allergies: VANCOMYCIN (Verified Adverse Reaction, Unknown, 05/23/18) breakouts and cheek All Systems: reviewed and negative except above Subjective Events of overnight noted Chart reviewed by me Patient notes difficulty and pain after working with PT/OT somewhat dejected- assured him that itll take many sessions and days to resume previous function given prolonged bedrest No fevers or chills Pain controlled Objective Last 24 Hour Vital Signs Date Time Temp Pulse Resp B/P (MAP) Pulse Ox O2 Delivery O2 Flow Rate FiO2 06/04/18 12:00 97.5 92 20 113/61 (78) 95 97.5 06/04/18 12:00 20 06/04/18 09:00 Room Air 06/04/18 08:00 99.0 91 18 109/54 (72) 98 99.0 06/04/18 08:00 18 06/04/18 04:00 98.7 85 19 104/61 (75) 98 98.7 06/04/18 04:00 19 06/04/18 00:00 18 06/04/18 00:00 100.0 97 18 114/61 (78) 95 100.0 06/03/18 21:00 Room Air 06/03/18 20:00 99.5 94 19 109/60 (76) 97 99.5 06/03/18 20:00 18 06/03/18 16:00 99.4 86 18 115/59 (77) 94 99.4 06/03/18 16:00 20 Intake and Output 06/03/18 06/04/18 19:00 07:00 Intake Total 1910.0 ml 925.0 ml Output Total 900 ml 600 ml Balance 1010.0 ml 325.0 ml Intake Oral 1000 ml 360 ml IV Total 910.0 ml 565.0 ml Output Urine Total 900 ml 600 ml Stool Total 0 ml Height (Feet): 6 Height (Inches): 2.00 Weight (Pounds): 190 General Appearance: alert, mild distress, thin EENT: PERRL/EOMI, normal ENT inspection, TMs normal, pharynx normal, pale conjunctivae Neck: non-tender, normal alignment, supple Cardiovascular: normal peripheral pulses, normal rate, regular rhythm Respiratory/Chest: chest wall non-tender, lungs clear, normal breath sounds Abdomen: normal bowel sounds, non tender, soft Pelvis: lesions, ulcers, other - dressings c/d/i Genitourinary/Rectal: other Extremities: normal range of motion, non-tender Edema: no edema noted Arm (L), no edema noted Arm (R) Lymphatic: normal anterior cervical (L), normal anterior cervical (R) Duke Lovell MD Jun 04, 2018 14:27
[2018-06-04 16:00] VITALS: BP 110/64
[2018-06-04 20:00] VITALS: BP 110/57
[2018-06-05] VITALS: BP 112/65
[2018-06-05 04:00] VITALS: BP 112/61
[2018-06-05] MEDS: Piperacillin/Tazobactam 3.375 GM in D5W 110 ML IVPB SCH ×2 (04:06→13:06)
[2018-06-05] MEDS: PCA shift volume MISC SCH (07:15)
[2018-06-05 08:00] VITALS: BP 112/64
[2018-06-05] MEDS: Heparin 5000 units/ml inj SUBQ SCH (08:23)
[2018-06-05] MEDS: Docusate 100mg cap ORAL SCH (08:42)
--- NOTE | 2018-06-05 11:09 | Discharge Summary ---
Discharge Summary Hospital Course Date of Admission May 23, 2018 at 14:28 Date of Discharge 06/05/2018 Admitting Diagnosis complex buttock abscess, cellulitis, sepsis Reason for Hospitalization: Sepsis, abscess HPI Adán Amezcua is a 38 year old male who was admitted on May 23, 2018 at 14: 28 for Complex Buttock Abscesses, purulent cellultitis and sepsis He has no significant history and presented to the ER for worsening rash, pain and discharge from gluteal area. He stated that his rash is to his buttocks and groin near the scrotum but has been worsening in his gluteal region. He had noticed foul smelling yellow discharge from the area recently. +/- fevers. + pain. Has been hospitalized for infections in the area in the past. Consultations Plastic Surgery Hematology Procedures 05/24/2018 PROCEDURES: 1. Radical excision of left groin infected hidradenitis tissue. 2. Radical excision of right groin infected hidradenitis tissue. 3. Radical excision of inferior scrotal base infected hidradenitis tissue. 4. Medial thigh flap elevation for staged closure of left groin wound. 5. Medial thigh flap elevation for staged closure of right groin wound. 6. Scrotal flap elevation for staged closure of scrotal base wound. 05/27 PROCEDURES: 1. Preparation of scrotal wound for flap closure wound measuring 8 x 6 cm. 2. Scrotal flap readvancement for closure of scrotal wound. 3. Preparation of right groin wound measuring 8 x 14 cm for closure with skin graft. 4. Closure of right groin wound with skin graft measuring 60 square centimeters after pexy of wound. 5. Preparation of left groin wound measuring 14 x 8 cm. 6. Closure of left groin wound with skin graft following pexy of 60 square cm. 06/01 PROCEDURES: Examination under anesthesia. Hospital Course Patient was admitted for concerns for sepsis given hypotension and leukocytosis Broad spectrum antibiotics were started and aggressive IVF resuscitation commenced Plastic surgery was consulted and he was taken to the OR for an I&D Given the extensive nature of the infection he was taken to the OR again a few days later for perineal reconstruction with flap closure and skin graft. 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 He improved and was able to come off of bedrest on 06/03/2018 He was very debilitated given his prolonged bedrest and PT/OT recommended rehabilitation in a structured setting He also has a complex wound requiring dressings Will need PO antibiotics for an additional 10 days after discharge I spent 45 minutes conducting, performing and coordinating discharge activities for this patient Discharge Medications Continued Medications: Acetaminophen* (Acetaminophen 325MG Tablet*) 325 Mg Tablet 650 MG ORAL Q4H PRN for Mild Pain/Temp > 100.5, TAB (This prescription has been renewed) Amoxicillin/Potassium Clav 875-125* (Augmentin 875-125 Tablet*) 1 Each Tablet 1 TAB ORAL TWICE A DAY, TAB (This prescription has been renewed) Docusate Sodium* (Docusate Sodium*) 100 Mg Capsule 100 MG ORAL TWICE A DAY PRN for Constipation, CAP (This prescription has been renewed) Doxycycline Hyclate (Doxycycline Hyclate) 100 Mg Tablet 100 MG PO, TAB (This prescription has been renewed) Hydrocodone Bit/Acetaminophen 10-325* (Gunlock 10-325*) 1 Each Tablet 1 TAB ORAL Q4H PRN for Severe Pain (Pain Scale 7-10), TAB 0 Refills (This prescription has been renewed) PRN PAIN Hydrocodone Bit/Acetaminophen 5-325* (Gunlock 5-325*) 1 Each Tablet 1 TAB ORAL Q4H PRN for Moderate Pain (Pain Scale 4-6), TAB 0 Refills (This prescription has been renewed) Discontinued Medications: No Known Medications* (NKM - No Known Medications*) . 0 ., 0 Refills Discharge Condition Upon Discharge: improving Discharge Disposition Patient was discharged to [facility] F/u Dr. Dixon in 2-3 weeks Discharge Diagnoses: (1) Anemia due to acute blood loss (2) Hidradenitis suppurativa (3) Sepsis (4) Cellulitis (5) Abscess Discharge Instructions Discharge Instructions Follow up with: Dr. Dixon Services Upon Discharge: other Duke Lovell MD Jun 05, 2018 11:09
[2018-06-05] MEDS ORDERED: Norco 5mg/325mg tab ORAL PRN (11:15)
[2018-06-05] MEDS ORDERED: HYDROcodone/Acetamin 10/325 tab ORAL PRN (11:15)
[2018-06-05] MEDS ORDERED: NORCO 5-325 TA1 EACH ORAL (11:25)
[2018-06-05] MEDS ORDERED: ACETAMINOPHEN325 M1 ORAL (11:25)
[2018-06-05] MEDS ORDERED: NORCO 10-325 T1 EACH ORAL (11:25)
[2018-06-05] MEDS ORDERED: DOCUSATE SODIU100 MG ORAL (11:26)
[2018-06-05] MEDS ORDERED: AUGMENTIN 875-1 EAC1 ORAL (11:27)
[2018-06-05] MEDS ORDERED: DOXYCYCLINE HY100 M6 PO (11:28)
[2018-06-05 12:00] VITALS: BP 120/60
[2018-06-05 15:47] VITALS: BP 120/68
[2018-06-05] MEDS ORDERED: Tubing IV Secondary IV ONE (18:35)
== END 2018-06-05 16:36 | disposition short-term general hospital (02) | DRG 571 ==
LOC: EMR 13:00 → EDBEDREQ 13:55 → 4W 14:28 → 3E 05-25 07:00
PROC: 0H8JXZZ Division of Left Upper Leg Skin, External Approach (ICD-10-PCS; principal; 2018-05-24 13:00)
PROC: 0H8HXZZ Division of Right Upper Leg Skin, External Approach (ICD-10-PCS; principal; 2018-05-24 13:00)
PROC: 0H89XZZ Division of Perineum Skin, External Approach (ICD-10-PCS; principal; 2018-05-24 13:00)
PROC: 0JBB0ZZ Excision of Perineum Subcutaneous Tissue and Fascia, Open Approach (ICD-10-PCS; principal; 2018-05-24 13:00)
PROC: 0HBJXZZ Excision of Left Upper Leg Skin, External Approach (ICD-10-PCS; 2018-05-27)
PROC: 0JXB0ZZ Transfer Perineum Subcutaneous Tissue and Fascia, Open Approach (ICD-10-PCS; 2018-05-27)
PROC: 0HR Skin and Breast, Replacement (ICD-10-PCS; 2018-05-27)
PROC: 0HJPXZZ Inspection of Skin, External Approach (ICD-10-PCS; 2018-06-01)
DX: L02.31 Cutaneous abscess of buttock (principal); E87.1 Hypo-osmolality and hyponatremia; D62 Acute posthemorrhagic anemia; L02.214 Cutaneous abscess of groin; L73.2 Hidradenitis suppurativa; L03.317 Cellulitis of buttock; N49.2 Inflammatory disorders of scrotum; D64.9 Anemia, unspecified; E86.1 Hypovolemia; Z88.1 Allergy status to other antibiotic agents; D63.8 Anemia in other chronic diseases classified elsewhere; D47.3 Essential (hemorrhagic) thrombocythemia
CPT/HCPCS: 36415; 80048; 80053; 81001; 81003; 81270; 82270; 82607; 82728; 82746; 83540; 83550; 83605; 84443; 85007; 85025; 85044; 85610; 85660; 85730; 86850; 86900; 86901; 86920; 87040; 93005; 94003; 94150; 99285; J2250; J2405; J8499

== ENCOUNTER 2018-06-16 13:20 | Inpatient (IN) | payer BC ==
[~2018-06-16] VITALS: Ht 190.5 cm; Wt 78.5 kg
[~2018-06-16 13:20] MED LIST: ACETAMINOPHEN325 M1 ORAL; AUGMENTIN 875-1 EAC1 ORAL; DOCUSATE SODIU100 MG ORAL; DOXYCYCLINE HY100 M6 PO; NKM; NORCO 10-325 T1 EACH ORAL; NORCO 5-325 TA1 EACH ORAL
[2018-06-16 20:20] VITALS: BP 111/59
[2018-06-16] MEDS ORDERED: HYDROcodone/Acetamin 10/325 tab ORAL PRN (21:00)
[2018-06-16] MEDS ORDERED: Norco 5mg/325mg tab ORAL PRN (21:00)
[2018-06-16 22:30] VITALS: BP 111/55
[2018-06-17 04:00] VITALS: BP 107/57
[2018-06-17] MEDS: Piperacillin/Tazobactam 3.375 GM in NS 110 ML IVPB SCH ×3 (06:00→22:11)
[2018-06-17] MEDS ORDERED: D5 1/2NS 1,000 ML IV SCH (07:00)
[2018-06-17 08:00] VITALS: BP 86/54
[2018-06-17] MEDS: Dronabinol 2.5mg Cap ORAL SCH ×2 (08:37→18:05)
[2018-06-17] MEDS: Ascorbic Acid 500mg tab ORAL SCH ×2 (08:37→18:05)
[2018-06-17] MEDS: Lactobacillus-GG tablet ORAL SCH ×2 (08:37→18:05)
[2018-06-17] MEDS: Zinc Sulfate 220mg cap ORAL SCH (08:37)
[2018-06-17] MEDS: Docusate 100mg cap ORAL SCH ×2 (08:37→18:05)
[2018-06-17] MEDS ORDERED: Miralax 17gm pkt ORAL PRN (09:00)
[2018-06-17 09:05] LABS: BASOPHILS % (AUTO) 0.2 % (0.0-2.0); EOSINOPHILS % (AUTO) 1.4 % (0.0-3.0); HEMATOCRIT 32.1 % (42.0-52.0); HEMOGLOBIN 9.6 G/DL (14.2-18.0); LYMPHOCYTES % (AUTO) 13.4 % (20.0-45.0); MEAN CORPUSCULAR VOLUME 77 FL (80-99); NEUTROPHILS % (AUTO) 80.1 % (45.0-75.0); PLATELET COUNT 686 K/UL (150-450); RED BLOOD COUNT 4.16 M/UL (4.70-6.10); RED CELL DISTRIBUTION WIDTH 15.4 % (11.6-14.8); WHITE BLOOD COUNT 17.5 K/UL (4.8-10.8)
--- NOTE | 2018-06-17 09:33 | General Progress Note ---
Progress Note Progress Note Pt seen and examined. Pt readmitted from rehab facility with fevers and CT finding of perineal abscesses. He is around 3 weeks s/p perineal debridement and reconstruction with known remnant HS still present. These abscesses are likely the residual HS. WBC pending Exam shows abscess in the right inner buttock. Plan for OR debridement in AM. NPO and consent RENEA MAYS Jun 17, 2018 09:33
[2018-06-17 10:01] LABS: ALANINE AMINOTRANSFERASE 37 U/L (12-78); ALBUMIN/GLOBULIN RATIO 0.3 (1.0-2.7); ALKALINE PHOSPHATASE 248 U/L (46-116); ANION GAP 5 mmol/L (5-15); ASPARTATE AMINO TRANSFERASE 21 U/L (15-37); BILIRUBIN,TOTAL 0.3 MG/DL (0.2-1.0); BLOOD UREA NITROGEN 12 mg/dL (7-18); CALCIUM 10.3 MG/DL (8.5-10.1); CARBON DIOXIDE 28 MMOL/L (21-32); CHLORIDE 102 MMOL/L (98-107); CREATININE 0.8 MG/DL (0.55-1.30); POTASSIUM 4.1 MMOL/L (3.5-5.1); SODIUM 135 MMOL/L (136-145)
--- NOTE | 2018-06-17 10:19 | History and Physical ---
History of Present Illness General Date patient seen: Jun 17, 2018 Time patient seen: 10:19 Reason for Hospitalization: perirectal abscess Present Illness HPI 38 year old male with pmh of hidradenitis suppurative s/p stage 1 debridement of bilateral groin wound 05/24/18 s/p revision and closure of bilateral groin wounds with skin grafts on 04/3018 who presents from ARU with concern for perirectal abscess. Pt initially doing well at [facility]. Then he was noted to have fevers to 101 and leukocytosis. C/o perirectal pain. CT showed perirectal abscess. Pt was placed on IV antibiotics but he refused stating he did not want IV access. Pt denies n/v, d/c, chest pain, SOB, abd pain, GILBERT, orthopnea, PND. Allergies: Coded Allergies: VANCOMYCIN (Verified Adverse Reaction, Unknown, 05/23/18) breakouts and cheek Medication History Scheduled Amoxicillin/Potassium Clav 875-125* (Augmentin 875-125 Tablet*), 1 TAB ORAL TWICE A DAY, (Reported) Scheduled PRN Acetaminophen* (Acetaminophen 325MG Tablet*), 650 MG ORAL Q4H PRN for Mild Pain/ Temp > 100.5, (Reported) Docusate Sodium* (Docusate Sodium*), 100 MG ORAL TWICE A DAY PRN for Constipation, (Reported) Hydrocodone Bit/Acetaminophen 10-325* ([place] 10-325*), 1 TAB ORAL Q4H PRN for Severe Pain (Pain Scale 7-10), (Reported) Hydrocodone Bit/Acetaminophen 5-325* ([place] 5-325*), 1 TAB ORAL Q4H PRN for Moderate Pain (Pain Scale 4-6), (Reported) Miscellaneous Medications Doxycycline Hyclate (Doxycycline Hyclate), 100 MG PO, (Reported) Patient History History Provided By: Patient, Medical Record, PMD Healthcare decision maker Resuscitation status Full Code Advanced Directive on File Past Medical/Surgical History Past Medical/Surgical History: (1) Hidradenitis suppurativa (2) Abscess Family History Family History: Patient reports no known family medical history. Social History Social History: (1) No significant social history Review of Systems Constitutional: Reports: fever, weakness Eye: Reports: no symptoms ENT: Reports: no symptoms Respiratory: Reports: no symptoms Cardiovascular: Reports: no symptoms Gastrointestinal: Reports: no symptoms Genitourinary: Reports: pain Musculoskeletal: Reports: no symptoms Skin: Reports: lesions Psychiatric: Reports: no symptoms Neurological: Reports: no symptoms Endocrine: Reports: no symptoms Hematologic/Lymphatic: Reports: no symptoms Physical Exam Physical Exam Narrative General: alert, cooperative, no distress, appears stated age Head: normocephalic, without obvious abnormality, atraumatic Eyes: conjunctivae/corneas clear. PERRL, EOM's intact Throat: lips, mucosa, and tongue normal. MMM Neck: supple, symmetrical, trachea midline, and no JVD Lungs: clear to auscultation bilaterally Heart: regular rate and rhythm, S1, S2 normal, no murmur, click, rub or gallop Abdomen: soft, non-tender, non-distended, bowel sounds normal; no masses or organomegaly Extremities: extremities normal, atraumatic, no cyanosis or edema Pulses: 2+ and symmetric Skin: abscess in the right inner buttock Neurologic: grossly normal, no focal deficits Last 24 Hour Vital Signs Date Time Temp Pulse Resp B/P (MAP) Pulse Ox O2 Delivery O2 Flow Rate FiO2 06/17/18 09:00 Room Air 06/17/18 08:00 98.2 81 20 86/54 (65) 97 98.2 06/17/18 04:00 98.7 94 17 107/57 (74) 95 98.7 06/16/18 22:30 99.0 90 19 111/55 (73) 95 99.0 06/16/18 22:15 Room Air 06/16/18 21:44 Room Air 06/16/18 20:20 98.1 92 19 111/59 (76) 96 98.1 Intake and Output 06/16/18 06/17/18 19:00 07:00 # Voids 3 Laboratory Tests Test 06/17/18 08:30 White Blood Count 17.5 K/UL (4.8-10.8) H Red Blood Count 4.16 M/UL (4.70-6.10) L Hemoglobin 9.6 G/DL (14.2-18.0) L Hematocrit 32.1 % (42.0-52.0) L Mean Corpuscular Volume 77 FL (80-99) L Mean Corpuscular Hemoglobin 23.2 PG (27.0-31.0) L Mean Corpuscular Hemoglobin Concent 30.1 G/DL (32.0-36.0) L Red Cell Distribution Width 15.4 % (11.6-14.8) H Platelet Count 686 K/UL (150-450) H Mean Platelet Volume 4.5 FL (6.5-10.1) L Neutrophils (%) (Auto) 80.1 % (45.0-75.0) H Lymphocytes (%) (Auto) 13.4 % (20.0-45.0) L Monocytes (%) (Auto) 5.0 % (1.0-10.0) Eosinophils (%) (Auto) 1.4 % (0.0-3.0) Basophils (%) (Auto) 0.2 % (0.0-2.0) Prothrombin Time 10.9 SEC (9.30-11.50) Prothromb Time International Ratio 1.0 (0.9-1.1) Activated Partial Thromboplast Time 28 SEC (23-33) Sodium Level 135 MMOL/L (136-145) L Potassium Level 4.1 MMOL/L (3.5-5.1) Chloride Level 102 MMOL/L (98-107) Carbon Dioxide Level 28 MMOL/L (21-32) Anion Gap 5 mmol/L (5-15) Blood Urea Nitrogen 12 mg/dL (7-18) Creatinine 0.8 MG/DL (0.55-1.30) Estimat Glomerular Filtration Rate > 60 mL/min (>60) Glucose Level 111 MG/DL (74-106) H Calcium Level 10.3 MG/DL (8.5-10.1) H Magnesium Level 2.3 MG/DL (1.8-2.4) Total Bilirubin 0.3 MG/DL (0.2-1.0) Aspartate Amino Transf (AST/SGOT) 21 U/L (15-37) Alanine Aminotransferase (ALT/SGPT) 37 U/L (12-78) Alkaline Phosphatase 248 U/L (46-116) H Total Protein 9.4 G/DL (6.4-8.2) H Albumin 2.0 G/DL (3.4-5.0) L Globulin 7.4 g/dL Albumin/Globulin Ratio 0.3 (1.0-2.7) L Height (Feet): 6 Height (Inches): 3.00 Weight (Pounds): 173 Medications Current Medications Medications (Trade) Dose Ordered Sig/Marcell Route PRN Reason Start Time Stop Time Status Last Admin Dose Admin Acetaminophen (Tylenol) 650 mg Q4H PRN ORAL Mild Pain/Temp > 100.5 06/16/18 21:00 07/16/18 20:59 Acetaminophen/ Hydrocodone Bitart ([place] 10/325) 1 tab Q4H PRN ORAL Severe Pain (Pain Scale 7-10) 06/16/18 21:00 06/23/18 20:59 Acetaminophen/ Hydrocodone Bitart ([place] 5/325) 1 tab Q4H PRN ORAL Moderate Pain (Pain Scale 4-6) 06/16/18 21:00 06/23/18 20:59 Ascorbic Acid (Vitamin C) 250 mg TWICE A DAY ORAL 06/17/18 09:00 07/17/18 08:59 06/17/18 08:37 Bisacodyl (Dulcolax) 10 mg DAILYPRN PRN RECTAL Constipation 06/16/18 21:00 07/16/18 20:59 Cetylpyridinium Chloride (Cepacol) 1 lozg Q2H PRN ORAL For Cough 06/16/18 21:45 07/16/18 21:44 Dextrose/Sodium Chloride 1,000 ml @ 75 mls/hr [id number] IV 06/17/18 07:00 07/17/18 06:59 Docusate Sodium (Colace) 100 mg TWICE A DAY ORAL 06/17/18 09:00 07/17/18 08:59 06/17/18 08:37 Dronabinol (Marinol) 5 mg BID ORAL 06/17/18 09:00 07/17/18 08:59 06/17/18 08:37 Duloxetine HCl (Cymbalta) 20 mg DAILY ORAL 06/17/18 09:00 07/17/18 08:59 Lactobacillus Acidophilus (Culturelle) 1 tab TWICE A DAY ORAL 06/17/18 09:00 07/17/18 08:59 06/17/18 08:37 Linezolid 300 ml @ 300 mls/hr Q12HR IVPB 06/17/18 09:00 06/24/18 08:59 Piperacillin Sod/ Tazobactam Sod 3.375 gm/Sodium Chloride 110 ml @ 27.5 mls/hr Q8HR IVPB 06/17/18 06:00 06/24/18 05:59 Polyethylene Glycol (Miralax) 17 gm DAILY PRN ORAL Constipation 06/17/18 09:00 07/17/18 08:59 Zinc Sulfate (Zinc Sulfate) 220 mg DAILY ORAL 06/17/18 09:00 07/17/18 08:59 06/17/18 08:37 Assessment/Plan Problem List: (1) Perirectal abscess ICD Codes: K61.1 - Rectal abscess SNOMED: 31887150 (2) Sepsis ICD Codes: A41.9 - Sepsis, unspecified organism SNOMED: 72387987 (3) Hidradenitis suppurativa ICD Codes: L73.2 - Hidradenitis suppurativa SNOMED: 09530444 (4) Anemia due to acute blood loss ICD Codes: D62 - Acute posthemorrhagic anemia SNOMED: 513085451 Status: stable Assessment/Plan Admit in Plastic surgery and ID consulted Empiric linezolid + zosyn for now (pt hesitant but does agree to IV access at this time) Plan for OR tomorrow for debridement per Dr. Dixon, NPO at [facility] Pain control, bowel regimen Supportive care If patient is required to have surgery, based on the patient's medical history, and other available ancillary data, the patient is a LOW risk for an INTERMEDIATE risk procedure. Per the most recent ACC/AHA guidelines, the patient does not need any further cardiopulmonary testing prior to the procedure and there do not appear to be any clear medical contraindications to proceeding with the proposed procedure. DVT Prophylaxis: SCD Code Status: Full Hospital Classification Declaration: Based on this initial evaluation, and depending on the patient's clinical course, I anticipate that this patient will require hospitalization for 2-3 days for surgical mgmt, IV abx, and close respiratory/hemodynamic monitoring. Disposition: Once the patient is stable to leave the hospital, I anticipate the patient will likely be discharged to the following environment: back to ARU vs home w/ HH I spent 75 minutes on this patient's case, and 40 minutes were dedicated to counseling and/or care coordination. Discussed with patient/family, nursing staff, SW/CM, plastic surgery, ID regarding clinical status, treatment course, and disposition planning. Time of note may not reflect time of encounter. Ronnell Zamudio M.D. Jun 17, 2018 10:19
--- NOTE | 2018-06-17 10:43 | Consultation ---
Consult Note Consult Note Date patient seen: Time patient seen: 13:45 Reason for Hospitalization: Skin Rash/Abscess RFC: eval of anemia and leukoecytosis, hypercalcemia Present Illness HPI 38 y/o man with no significant history presents to the ER for worsening right buttox ulceration/abscess, has pain and discharge from gluteal area. Seen by surgeron. He states that his rash is to his buttocks and groin near the scrotum but has been worsening in his gluteal region. He has noticed foul smelling yellow discharge from the area recently. +/- fevers. + pain. Has been hospitalized for infections in the area in the past. Denies any periop or postop complications from the anesthesia. Reports being able to ambulate 4 blocks and a flight of stairs without any chest pain or SOB. Denies any cardiac history. Currently, denies chest pain, sob, f/c, d/c, abdominal pain, n/v. Denies alcohol, tobacco or illicit drug use. Noted to have a high wbc and anemia and heme consulted. PMH: Gluteal abscess/infection s/p drainage PSxH: None Social Hx: lives at home w/ family. denies alcohol, tobacco, or illicit drug use Family Hx: reviewed by me; not pertinent for this encounter Allergies: Coded Allergies: VANCOMYCIN (Verified Adverse Reaction, Unknown, 05/23/18) breakouts and cheek Medication History Scheduled No Known Medications* (NKM - No Known Medications*), 0 ., (Reported) Resuscitation status Advanced Directive on File Review of Systems Constitutional: Reports: weakness Eye: Reports: no symptoms ENT: Reports: no symptoms Respiratory: Reports: no symptoms Cardiovascular: Reports: no symptoms Gastrointestinal: Reports: other Genitourinary: Reports: no symptoms Musculoskeletal: Reports: no symptoms Skin: Reports: rash, change in color, lesions Psychiatric: Reports: no symptoms Neurological: Reports: no symptoms Endocrine: Reports: no symptoms Hematologic/Lymphatic: Reports: no symptoms All Other Systems: negative except mentioned in HPI ROS Narrative gluteal pain Physical Exam General Appearance: no apparent distress, alert, thin Lines, tubes and drains: peripheral HEENT: normocephalic, atraumatic, anicteric, EOMI Neck: non-tender Respiratory/Chest: lungs clear Breasts: no masses Cardiovascular/Chest: normal peripheral pulses, normal rate, regular rhythm Abdomen: normal bowel sounds, soft Genitourinary/Rectal: other - intragluteal cleft area with open wounds with foul smelling yellow purelent drainage and surrounding erythema; + tenderness Extremities: normal range of motion Skin Exam: normal pigmentation, warm/dry 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, alert, oriented x 3 Lymphatic: anterior cervical, posterior cervical (L) Musculoskeletal: normal muscle bulk Laboratory Tests Test 06/17/18 08:30 White Blood Count 17.5 K/UL (4.8-10.8) H Red Blood Count 4.16 M/UL (4.70-6.10) L Hemoglobin 9.6 G/DL (14.2-18.0) L Hematocrit 32.1 % (42.0-52.0) L Mean Corpuscular Volume 77 FL (80-99) L Mean Corpuscular Hemoglobin 23.2 PG (27.0-31.0) L Mean Corpuscular Hemoglobin Concent 30.1 G/DL (32.0-36.0) L Red Cell Distribution Width 15.4 % (11.6-14.8) H Platelet Count 686 K/UL (150-450) H Mean Platelet Volume 4.5 FL (6.5-10.1) L Neutrophils (%) (Auto) 80.1 % (45.0-75.0) H Lymphocytes (%) (Auto) 13.4 % (20.0-45.0) L Monocytes (%) (Auto) 5.0 % (1.0-10.0) Eosinophils (%) (Auto) 1.4 % (0.0-3.0) Basophils (%) (Auto) 0.2 % (0.0-2.0) Prothrombin Time 10.9 SEC (9.30-11.50) Prothromb Time International Ratio 1.0 (0.9-1.1) Activated Partial Thromboplast Time 28 SEC (23-33) Sodium Level 135 MMOL/L (136-145) L Potassium Level 4.1 MMOL/L (3.5-5.1) Chloride Level 102 MMOL/L (98-107) Carbon Dioxide Level 28 MMOL/L (21-32) Anion Gap 5 mmol/L (5-15) Blood Urea Nitrogen 12 mg/dL (7-18) Creatinine 0.8 MG/DL (0.55-1.30) Estimat Glomerular Filtration Rate > 60 mL/min (>60) Glucose Level 111 MG/DL (74-106) H Calcium Level 10.3 MG/DL (8.5-10.1) H Magnesium Level 2.3 MG/DL (1.8-2.4) Total Bilirubin 0.3 MG/DL (0.2-1.0) Aspartate Amino Transf (AST/SGOT) 21 U/L (15-37) Alanine Aminotransferase (ALT/SGPT) 37 U/L (12-78) Alkaline Phosphatase 248 U/L (46-116) H Total Protein 9.4 G/DL (6.4-8.2) H Albumin 2.0 G/DL (3.4-5.0) L Globulin 7.4 g/dL Albumin/Globulin Ratio 0.3 (1.0-2.7) L Assessment/Plan # Hypecalcemia - with a protein - albumin gap --> obtain spep and upep initially --> obtain PTH as well as PTH-related peptide --> based on above, further w/u as needed # Anemia of chronic disease, in addition to iron deficiency component, hgb on admission was 10.0--> 9.1 --> Anemia w/u has been reviewed at this time. Will trend CBC as needed. --> Continue to monitor for stability --> Hgb goal above 7. Transfuse as needed on prn basis --> Blood tx: 2 units on 05/26 and at this time monitor # Leukocytosis 2/2 infection/cellulitis is on abx as well as recent debridement --> Continue to monitor WBC for improvement, also post-op at this point, left groin surgery --> Current WBC 18.5, remains elevated --> JAK2 has been ordered/results pending # Thrombocytosis. Reactive process to anemia and will improve. --> if plt count >600k, likely related to reactive process, will r/o cml/ET/PV with Flynn 2 --> Continue to closely monitor for improvement # Hidradenitis with gluteal abscess/infection/cellulitis, open wound, draining purulent fluid. w/ now gluteal abscess --> signs of infection on labs (leukocytosis) --> Dr. Miller closely following # Hyponatremia. --> Likely secondary to hypovolemia The time the note was entered does not necessarily correspond to the time the patient was seen. Greatly appreciate consultation! Chris Quick MD Jun 17, 2018 10:43
[2018-06-17 11:34] LABS: FERRITIN 122 NG/ML (8-388); LACTATE DEHYDROGENASE 98 U/L (81-234)
[2018-06-17 11:49] LABS: % IRON SATURATION 15 % (15-50); IRON 24 ug/dL (50-175); TOTAL IRON BINDING CAPACITY 161 ug/dL (250-450)
[2018-06-17 16:00] VITALS: BP 116/59
[2018-06-17 20:00] VITALS: BP 117/65
[2018-06-18] VITALS (15 sets, daily range): BP systolic 94–112; BP diastolic 54–69
[2018-06-18] MEDS: Piperacillin/Tazobactam 3.375 GM in NS 110 ML IVPB SCH ×3 (04:13→21:14)
[2018-06-18] MEDS: D5NS 1,000 ML IV SCH ×2 (04:13→17:18)
[2018-06-18] MEDS ORDERED: Ketorolac 30mg Inj ONE (06:53)
[2018-06-18] MEDS ORDERED: Midazolam 2mg/2ml Inj ONE (06:53)
[2018-06-18] MEDS ORDERED: Propofol 200mg/20ml IV ONE (06:53)
[2018-06-18] MEDS ORDERED: Lidocaine 1% MPF 10mg/ml 5ml ONE (06:53)
[2018-06-18] MEDS ORDERED: fentaNYL 100 mcg/2 mL IV ONE (06:53)
--- NOTE | 2018-06-18 07:09 | Pre-Procedure Note/Attestation ---
Pre-Procedure Note/Attestation Complete Prior to Procedure Planned Procedure: bilateral Procedure Narrative: Bilateral buttock debridement Attestation I attest that I discussed the nature of the procedure; its benefits; risks and complications; and alternatives (and the risks and benefits of such alternatives ), prior to the procedure, with the patient (or the patient's legal insurance service representative). I attest that, if there was a reasonable possibility of needing a blood transfusion, the patient (or the patient's legal insurance service representative) was given the [facility] standardized written summary, pursuant to the [place] Blood Safety Act ([place] Health and Safety Code # 1645, as amended). I attest that I re-evaluated the patient just prior to the surgery and that there has been no change in the patient's H&P, except as documented below: RENEA MAYS Jun 18, 2018 07:09
[2018-06-18] MEDS ORDERED: Zemuron 50mg/5ml Inj IV ONE (07:18)
[2018-06-18] MEDS ORDERED: Succinylcholine 20mg/ml 10ml vial ONE (07:18)
[2018-06-18] MEDS ORDERED: Bacitracin 50000 Units Vial ONE (07:19)
[2018-06-18] MEDS ORDERED: Lidocaine 1% 10mg/ml/EPI 0.01mg/ml 50ml INJ ONE (07:19)
[2018-06-18] MEDS ORDERED: NeoSporin Gu Irrig 1ml Amp IRRIG ONE (07:19)
[2018-06-18] MEDS ORDERED: NS Irrig 1000ml ONE (07:30)
[2018-06-18] MEDS ORDERED: LR 1000ml ONE (07:30)
[2018-06-18] MEDS ORDERED: Sterile Water Irrig 1000ml IRRIG ONE (07:30)
[2018-06-18] MEDS ORDERED: Rate Change PCA 1 Each MISC PRN (08:00)
[2018-06-18] MEDS: PCA Education Pamphlet MISC SCH ×2 (08:00→11:33)
[2018-06-18] MEDS ORDERED: DiphenhydrAMINE 50mg/ml Inj IVP PRN ×2 (08:00→09:45)
[2018-06-18] MEDS ORDERED: Naloxone 0.4mg/ml Inj IV PRN (08:00)
[2018-06-18] MEDS ORDERED: Morphine Sulfate 10mg/ml Inj ONE (08:14)
[2018-06-18] MEDS ORDERED: Glycopyrrolate 0.2mg/ml 1ml Vial ONE (08:14)
[2018-06-18] MEDS ORDERED: Neostigmine 1mg/ml 10ml Inj ONE (08:14)
[2018-06-18] MEDS ORDERED: Sodium Chloride 10ml vial INJ ONE (08:15)
--- NOTE | 2018-06-18 08:37 | Anethesia Preoperative Eval ---
Anesthesia Pre-op PMH/ROS General Date of Evaluation: Jun 18, 2018 Time of Evaluation: 07:10 Anesthesiologist: Michelle ASA Score: ASA 2 Mallampati Score Class I : Soft palate, uvula, fauces, pillars visible Class II: Soft palate, uvula, fauces visible Class III: Soft palate, base of uvula visible Class IV: Only hard plate visible Mallampati Classification: Class II Surgeon: Zack Diagnosis: Recurrent HS Surgical Procedure: Excision of pilonidal cyst Anesthesia History: none Family History: no anesthesia problems Allergies: Coded Allergies: VANCOMYCIN (Verified Adverse Reaction, Unknown, 05/23/18) breakouts and cheek Past Medical History Cardiovascular: Denies: HTN, CAD, DC, valve dz, arrhythmia, other Pulmonary: Denies: asthma, COPD, CHETAN, other Gastrointestinal/Genitourinary: Reports: GERD - mild; Denies: CRI, ESRD, other Neurologic/Psychiatric: Reports: depression/anxiety, other - chronic pain; Denies: dementia, CVA, TIA Endocrine: Denies: DM, hypothyroidism, steroids, other HEENT: Denies: cataract (L), cataract (R), glaucoma, [place] (L), [place] (R), other Hematology/Immune: Reports: anemia; Denies: DVT, bleeding disorder, other Musculoskeletal/Integumentary: Reports: other - rercurrent HS; Denies: OA, RA, DJD, DDD, edema PMH Narrative: as above PSxH Narrative: Surgical treatment of recurrent HS Anesthesia Pre-op Phys. Exam Physician Exam Last Vital Signs Date Time Temp Pulse Resp B/P (MAP) Pulse Ox O2 Delivery O2 Flow Rate FiO2 06/18/18 00:17 98.0 83 19 104/57 (73) 97 98.0 06/17/18 21:00 Room Air Constitutional: NAD Neurologic: CN 2-12 intact Cardiovascular: RRR, no M/R/G Respiratory: other - productive cough, no dispnea, some mucus secretion, negative auscultatiuon Gastrointestinal: S/NT/ND Airway Exam Mallampati Score: Class II MO: full Neck: flexible ROM: full Teeth: missing Dentures: no upper, no lower Anesthesia Pre-op A/P Risk Assessment & Plan Assessment: ASA 2 Plan: GA with ETT prone position Status Change Before Surgery: No Pre-Antibiotics Drug: Ancef 1gr Given Within 1 Hr of Incision: Yes Time Given: 08:10 Omar Martinez MD Jun 18, 2018 08:37
--- NOTE | 2018-06-18 08:53 | Operative Note - PDOC ---
Operative Note Operative Note Pre-op Diagnosis: Sacral wound Procedure: Excision of sacral wound and pilonidal cyst Post-op Diagnosis: same as pre-op Surgeon: Zack Associate Account Director: Lia Anesthesia: general Specimen: yes Complications: none Condition: stable Estimated Blood Loss: minimal Drains: none Implant(s) used?: No RENEA MAYS Jun 18, 2018 08:53
[2018-06-18] MEDS ORDERED: Docusate 100mg cap ORAL SCH (09:00)
[2018-06-18] MEDS: Lactobacillus-GG tablet ORAL SCH ×2 (09:00→17:18)
[2018-06-18] MEDS: Ascorbic Acid 500mg tab ORAL SCH ×2 (09:00→17:19)
[2018-06-18] MEDS: Docusate 100mg cap ORAL SCH ×2 (09:00→17:19)
[2018-06-18] MEDS: Heparin 5000 units/ml inj SUBQ SCH ×2 (09:00→21:00)
[2018-06-18] MEDS: Dronabinol 2.5mg Cap ORAL SCH ×2 (09:00→17:19)
[2018-06-18] MEDS: Zinc Sulfate 220mg cap ORAL SCH (09:00)
--- NOTE | 2018-06-18 09:17 | Immediate Post-Op Evaluation ---
Immediate Post-Op Evalulation Immediate Post-Op Evalulation Procedure: Excision of infected pilonidal cyst Date of Evaluation: Jun 18, 2018 Time of Evaluation: 09:16 IV Fluids: 1000 Blood Products: none Estimated Blood Loss: 50 Urinary Output: NONE Blood Pressure Systolic: 109 Blood Pressure Diastolic: 64 Pulse Rate: 83 Respiratory Rate: 22 O2 Sat by Pulse Oximetry: 98 Temperature (Fahrenheit): 97.9 Pain Score (1-10): 2 Nausea: No Vomiting: No Complications none Patient Status: awake, patent, extubated, none Hydration Status: adequate Omar Martinez MD Jun 18, 2018 09:17
[2018-06-18] MEDS: PCA HYDROmorphone 1mg/ml 30 ML IV PRN ×2 (09:25→10:53)
[2018-06-18] MEDS ORDERED: LR 1000ml 1,000 ML IVLG SCH (09:31)
--- NOTE | 2018-06-18 09:37 | Diagnostic Imaging Report ---
Indication: Dyspnea Comparison: None A single view chest radiograph was obtained. Findings: Patient is in the recovery room. The examination shows faint air bronchograms at the left lung base with mild hazy basilar parenchymal opacities which may be atelectasis, residual edema, or infiltrates/pneumonia. Correlate clinically. Follow-up suggested. Heart size is normal. There is no evidence of vascular congestion or fluid overload. Bones are unremarkable. IMPRESSION: Patchy basilar parenchymal densities likely atelectasis or pneumonia. Follow-up and clinical correlation recommended
--- NOTE | 2018-06-18 09:44 | General Progress Note ---
Assessment/Plan Problem List: (1) Perirectal abscess ICD Codes: K61.1 - Rectal abscess SNOMED: 51363182 (2) Sepsis ICD Codes: A41.9 - Sepsis, unspecified organism SNOMED: 24321172 (3) Hidradenitis suppurativa ICD Codes: L73.2 - Hidradenitis suppurativa SNOMED: 16601583 (4) Anemia due to acute blood loss ICD Codes: D62 - Acute posthemorrhagic anemia SNOMED: 871712287 (5) Sacral wound ICD Codes: S31.000A - Unspecified open wound of lower back and pelvis without penetration into retroperitoneum, initial encounter SNOMED: 964220520 Status: stable Assessment/Plan Plastic surgery and ID consulted s/p excision of sacral wound and pilonidal cyst on 06/18/18 Empiric linezolid + zosyn for now Repeat labs tomorrow AM Wound care mIVFs Post operative recommendations include: - encourage mobilization/ambulation - encourage incentive spirometry to optimize pulmonary hygiene - DVT/GI prophylaxis as appropriate - pain control, supportive care, bowel regimen If patient is required to have surgery, based on the patient's medical history, and other available ancillary data, the patient is a LOW risk for an INTERMEDIATE risk procedure. Per the most recent ACC/AHA guidelines, the patient does not need any further cardiopulmonary testing prior to the procedure and there do not appear to be any clear medical contraindications to proceeding with the proposed procedure. DVT Prophylaxis: SCD Code Status: Full Hospital Classification Declaration: Based on this initial evaluation, and depending on the patient's clinical course, I anticipate that this patient will require hospitalization for 2-3 days for surgical mgmt, IV abx, and close respiratory/hemodynamic monitoring. Disposition: Once the patient is stable to leave the hospital, I anticipate the patient will likely be discharged to the following environment: back to ARU vs home w/ HH I spent 75 minutes on this patient's case, and 40 minutes were dedicated to counseling and/or care coordination. Discussed with patient/family, nursing staff, SW/CM, plastic surgery, ID regarding clinical status, treatment course, and disposition planning. Time of note may not reflect time of encounter. Subjective Date patient seen: Jun 18, 2018 Time patient seen: 09:44 ROS Limited/Unobtainable: No Constitutional: Reports: no symptoms HEENT: Reports: no symptoms Cardiovascular: Reports: no symptoms Respiratory: Reports: no symptoms Gastrointestinal/Abdominal: Reports: no symptoms Genitourinary: Reports: no symptoms Neurologic/Psychiatric: Reports: no symptoms Endocrine: Reports: no symptoms Hematologic/Lymphatic: Reports: no symptoms Allergies: Coded Allergies: VANCOMYCIN (Verified Adverse Reaction, Unknown, 05/23/18) breakouts and cheek All Systems: reviewed and negative except above Subjective No acute o/n events s/p excision of sacral wound and pilonidal cyst, POD#0 Pt doing well. 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 Objective Last 24 Hour Vital Signs Date Time Temp Pulse Resp B/P (MAP) Pulse Ox O2 Delivery O2 Flow Rate FiO2 06/18/18 09:35 79 18 107/66 100 Nasal Cannula 3 06/18/18 09:25 82 19 110/67 99 Nasal Cannula 3 06/18/18 09:25 97.8 06/18/18 09:17 208.2 83 22 98 06/18/18 09:15 87 20 112/61 100 Nasal Cannula 3 06/18/18 09:05 85 21 108/65 100 Simple Mask 6 06/18/18 09:00 86 22 109/69 100 Simple Mask 6 06/18/18 08:54 97.8 98 20 107/57 98 Simple Mask 6 97.8 06/18/18 00:17 98.0 83 19 104/57 (73) 97 98.0 06/17/18 21:00 Room Air 06/17/18 20:00 98.5 89 18 117/65 (82) 99 98.5 06/17/18 16:00 97.1 93 20 116/59 (78) 98 97.1 Intake and Output 06/17/18 06/18/18 19:00 07:00 Intake Total 1745.0 ml 1197.5 ml Output Total 1000 ml Balance 1745.0 ml 197.5 ml Intake Oral 1240 ml 480 ml IV Total 505.0 ml 717.5 ml Output Urine Total 1000 ml # Voids 5 Height (Feet): 6 Height (Inches): 3.00 Weight (Pounds): 173 Objective General: alert, cooperative, no distress, appears stated age Head: normocephalic, without obvious abnormality, atraumatic Eyes: conjunctivae/corneas clear. PERRL, EOM's intact Throat: lips, mucosa, and tongue normal. MMM Neck: supple, symmetrical, trachea midline, and no JVD Lungs: clear to auscultation bilaterally Heart: regular rate and rhythm, S1, S2 normal, no murmur, click, rub or gallop Abdomen: soft, non-tender, non-distended, bowel sounds normal; no masses or organomegaly Extremities: extremities normal, atraumatic, no cyanosis or edema Pulses: 2+ and symmetric Skin: dressing c/d/i Neurologic: grossly normal, no focal deficits Ronnell Zamudio M.D. Jun 18, 2018 09:44
[2018-06-18] MEDS ORDERED: Metoclopramide 10mg/2ml Inj IVP PRN (09:45)
[2018-06-18] MEDS ORDERED: fentaNYL 100 mcg/2 mL IV PRN (09:45)
[2018-06-18] MEDS ORDERED: D5 1/2NS 1000ml IV ONE (09:52)
--- NOTE | 2018-06-18 09:55 | General Progress Note ---
Assessment/Plan Assessment/Plan Assessment/Plan # Hypercalcemia - with a protein - albumin gap --> obtain spep and upep initially --> appears initially is negative --> obtain PTH as well as PTH-related peptide --> based on above, further w/u as needed # Anemia of chronic disease, in addition to iron deficiency component, hgb on admission was 10.0--> 9.1 --> Anemia w/u has been reviewed at this time. Will trend CBC as needed. --> Continue to monitor for stability --> Hgb goal above 7. Transfuse as needed on prn basis --> Blood tx: 2 units on 05/26 and at this time monitor # Leukocytosis 2/2 infection/cellulitis is on abx as well as recent debridement --> Continue to monitor WBC for improvement, also post-op at this point, left groin surgery --> Current WBC 18.5, remains elevated --> JAK2 has been ordered/results pending # Thrombocytosis. Reactive process to anemia and will improve. --> if plt count >600k, likely related to reactive process, will r/o cml/ET/PV with Flynn 2 --> Continue to closely monitor for improvement # Hidradenitis with gluteal abscess/infection/cellulitis, open wound, draining purulent fluid. w/ now gluteal abscess --> signs of infection on labs (leukocytosis) --> Dr. Miller closely following # Hyponatremia. --> Likely secondary to hypovolemia The time the note was entered does not necessarily correspond to the time the patient was seen. Greatly appreciate consultation! Subjective Constitutional: Denies: no symptoms, chills, diaphoresis, fever, malaise, weakness, other HEENT: Denies: no symptoms, eye pain, blurred vision, tearing, double vision, ear pain, ear discharge, nose pain, nose congestion, throat pain, throat swelling, mouth pain, mouth swelling, other Cardiovascular: Denies: no symptoms, chest pain, edema, irregular heart rate, lightheadedness, palpitations, syncope, other Respiratory: Denies: no symptoms, cough, orthopnea, shortness of breath, SOB with excertion, SOB at rest, sputum, stridor, wheezing, other Gastrointestinal/Abdominal: Denies: no symptoms, abdomen distended, abdominal pain, black stools, tarry stools, blood in stool, constipated, diarrhea, difficulty swallowing, nausea, poor appetite, poor fluid intake, rectal bleeding , vomiting, other Genitourinary: Denies: no symptoms, burning, discharge, frequency, flank pain, hematuria, incontinence, pain, urgency, other Neurologic/Psychiatric: Denies: no symptoms, anxiety, depressed, emotional problems, headache, numbness, paresthesia, pre-existing deficit, seizure, tingling, tremors, weakness, other Endocrine: Denies: no symptoms, excessive sweating, flushing, intolerance to cold, intolerance to heat, increased hunger, increased thirst, increased urine, unexplained weight gain, unexplained weight loss, other Allergies: Coded Allergies: VANCOMYCIN (Verified Adverse Reaction, Unknown, 05/23/18) breakouts and cheek Subjective no fevers or chills, no events, no chills Objective Last 24 Hour Vital Signs Date Time Temp Pulse Resp B/P (MAP) Pulse Ox O2 Delivery O2 Flow Rate FiO2 06/18/18 09:35 79 18 107/66 100 Nasal Cannula 3 06/18/18 09:25 82 19 110/67 99 Nasal Cannula 3 06/18/18 09:25 97.8 06/18/18 09:17 208.2 83 22 98 06/18/18 09:15 87 20 112/61 100 Nasal Cannula 3 06/18/18 09:05 85 21 108/65 100 Simple Mask 6 06/18/18 09:00 86 22 109/69 100 Simple Mask 6 06/18/18 08:54 97.8 98 20 107/57 98 Simple Mask 6 97.8 06/18/18 00:17 98.0 83 19 104/57 (73) 97 98.0 06/17/18 21:00 Room Air 06/17/18 20:00 98.5 89 18 117/65 (82) 99 98.5 06/17/18 16:00 97.1 93 20 116/59 (78) 98 97.1 Intake and Output 06/17/18 06/18/18 19:00 07:00 Intake Total 1745.0 ml 1197.5 ml Output Total 1000 ml Balance 1745.0 ml 197.5 ml Intake Oral 1240 ml 480 ml IV Total 505.0 ml 717.5 ml Output Urine Total 1000 ml # Voids 5 Height (Feet): 6 Height (Inches): 3.00 Weight (Pounds): 173 General Appearance: no apparent distress EENT: TMs normal Neck: supple Cardiovascular: normal rate Respiratory/Chest: normal breath sounds Abdomen: non tender Extremities: non-tender Edema: 1+ Arm (L), 1+ Arm (R), 1+ Leg (L), 1+ Leg (R) Edema: mild edema Neurologic: alert Skin: normal pigmentation Chris Quick MD Jun 18, 2018 09:55
--- NOTE | 2018-06-18 11:03 | Infectious Diseases Prog Note ---
Assessment/Plan Assessment/Plan antibiotics : linezolid, zosyn A 1. perirectal abscess s/p Excision of sacral wound and pilonidal cyst 2. Hidradenitis suppurativa 3, leucocytosis 4. anemia P 1. continue linezolid, patient refusing iv but agreeable to po linezolid 2. continue zosyn 3. will follow up cultures Subjective Constitutional: Denies: fever, chills Respiratory: Denies: shortness of breath, dry cough Gastrointestinal/Abdominal: Denies: nausea, vomiting, diarrhea Musculoskeletal: Reports: pain - mild Allergies: Coded Allergies: VANCOMYCIN (Verified Adverse Reaction, Unknown, 05/23/18) breakouts and cheek Objective Vital Signs Last 24 Hour Vital Signs Date Time Temp Pulse Resp B/P (MAP) Pulse Ox O2 Delivery O2 Flow Rate FiO2 06/18/18 10:30 77 17 106/64 100 Nasal Cannula 3 06/18/18 10:15 97.6 79 18 101/61 100 Nasal Cannula 3 97.6 06/18/18 10:00 74 17 104/57 100 Nasal Cannula 3 06/18/18 10:00 18 06/18/18 09:55 17 06/18/18 09:55 71 16 104/64 100 Nasal Cannula 3 06/18/18 09:50 78 16 106/63 100 Nasal Cannula 3 06/18/18 09:45 20 06/18/18 09:35 20 06/18/18 09:35 79 18 107/66 100 Nasal Cannula 3 06/18/18 09:25 82 19 110/67 99 Nasal Cannula 3 06/18/18 09:25 97.8 06/18/18 09:25 18 06/18/18 09:17 208.2 83 22 98 06/18/18 09:15 87 20 112/61 100 Nasal Cannula 3 06/18/18 09:05 85 21 108/65 100 Simple Mask 6 06/18/18 09:00 86 22 109/69 100 Simple Mask 6 06/18/18 08:54 97.8 98 20 107/57 98 Simple Mask 6 97.8 06/18/18 00:17 98.0 83 19 104/57 (73) 97 98.0 06/17/18 21:00 Room Air 06/17/18 20:00 98.5 89 18 117/65 (82) 99 98.5 06/17/18 16:00 97.1 93 20 116/59 (78) 98 97.1 Height (Feet): 6 Height (Inches): 3.00 Weight (Pounds): 173 Respiratory/Chest: lungs clear Cardiovascular: normal rate, regular rhythm, no gallop/murmur Abdomen: soft, non tender, other - buttocks in dressings Extremities: no edema Microbiology Date/Time Source Procedure Growth Status 06/17/18 13:50 Rectal Mucosa - Preliminary Resulted Current Medications Medications (Trade) Dose Ordered Sig/Marcell Route PRN Reason Start Time Stop Time Status Last Admin Dose Admin Acetaminophen (Tylenol) 650 mg Q4H PRN ORAL Mild Pain/Temp > 100.5 06/16/18 21:00 07/16/18 20:59 Ascorbic Acid (Vitamin C) 250 mg TWICE A DAY ORAL 06/17/18 09:00 07/17/18 08:59 06/17/18 18:05 Bisacodyl (Dulcolax) 10 mg DAILYPRN PRN RECTAL Constipation 06/16/18 21:00 07/16/18 20:59 Cetylpyridinium Chloride (Cepacol) 1 lozg Q2H PRN ORAL For Cough 06/16/18 21:45 07/16/18 21:44 06/17/18 20:03 Dextrose/Sodium Chloride 1,000 ml @ 75 mls/hr [id number] IV 06/18/18 04:15 07/18/18 04:14 06/18/18 04:13 Diphenhydramine HCl (Benadryl) 12.5 mg Q6H PRN IVP Itching/Pruritis 06/18/18 08:00 07/18/18 07:59 Diphenhydramine HCl (Benadryl) 25 mg Q15M PRN IVP Itching 06/18/18 09:45 06/18/18 18:00 Docusate Sodium (Colace) 100 mg TWICE A DAY ORAL 06/17/18 09:00 07/17/18 08:59 06/17/18 18:05 Dronabinol (Marinol) 5 mg BID ORAL 06/17/18 09:00 07/17/18 08:59 06/17/18 18:05 Duloxetine HCl (Cymbalta) 20 mg DAILY ORAL 06/17/18 09:00 07/17/18 08:59 Fentanyl Citrate (Sublimaze 100 mcg/2 mL) 25 mcg Q10M PRN IV Moderate Pain (Pain Scale 4-6) 06/18/18 09:45 06/18/18 18:00 Heparin Sodium (Porcine) (Heparin 5000 units/ml) 5,000 units EVERY 12 HOURS SUBQ 06/18/18 09:00 07/18/18 08:59 Hydromorphone HCl 30 ml @ 0 mls/hr Q24H PRN IV For Pain 06/18/18 08:00 06/20/18 07:59 06/18/18 09:25 Hydromorphone HCl (Dilaudid) 2 mg Q3H PRN SUBQ Severe Pain (Pain Scale 7-10) 06/18/18 08:00 06/20/18 07:59 Hydromorphone HCl (Dilaudid) 2 mg Q4H PRN IVP Moderate Pain (Pain Scale 4-6) 06/18/18 08:00 06/20/18 07:59 Lactated Ringer's 1,000 ml @ 10 mls/hr Q24H IVLG 06/18/18 09:31 06/18/18 11:30 Lactobacillus Acidophilus (Culturelle) 1 tab TWICE A DAY ORAL 06/17/18 09:00 07/17/18 08:59 06/17/18 18:05 Linezolid 300 ml @ 300 mls/hr Q12HR IVPB 06/17/18 09:00 06/24/18 08:59 Metoclopramide HCl (Reglan) 10 mg Q1H PRN IVP Nausea & Vomiting 06/18/18 09:45 06/18/18 18:00 Miscellaneous Medication (BIG DATA HADOOP DEVELOPER Education Pamphlet) 1 ea ONCE MISC 06/18/18 08:00 06/18/18 18:00 Miscellaneous Medication (BIG DATA HADOOP DEVELOPER Rate Change) 1 ea DAILY PRN MISC rate change 06/18/18 08:00 06/20/18 07:59 Miscellaneous Medication (BIG DATA HADOOP DEVELOPER shift volume) 1 ea Q12HR@0700,1900 MISC 06/18/18 19:00 06/20/18 18:59 Naloxone HCl (Narcan) 0.1 mg PRN IV . 06/18/18 08:00 06/20/18 07:59 Ondansetron HCl (Zofran) 4 mg Q6H PRN IVP Nausea & Vomiting 06/18/18 08:00 07/18/18 07:59 Piperacillin Sod/ Tazobactam Sod 3.375 gm/Sodium Chloride 110 ml @ 27.5 mls/hr Q8HR IVPB 06/17/18 06:00 06/24/18 05:59 06/18/18 04:13 Polyethylene Glycol (Miralax) 17 gm DAILY PRN ORAL Constipation 06/17/18 09:00 07/17/18 08:59 Zinc Sulfate (Zinc Sulfate) 220 mg DAILY ORAL 06/17/18 09:00 07/17/18 08:59 06/17/18 08:37 Zolpidem Tartrate (Ambien) 5 mg QHS PRN ORAL Insomnia 06/18/18 21:00 06/25/18 20:59 JEANCARLOS DAS Jun 18, 2018 11:03
--- NOTE | 2018-06-18 16:15 | Operative Note - Dictated ---
DATE OF OPERATION: 06/18/2018 PREOPERATIVE DIAGNOSIS: Sacral wound and pilonidal cyst. POSTOPERATIVE DIAGNOSIS: Sacral wound and pilonidal cyst. PROCEDURES: 1. Excision of sacral wound in preparation for flap closure. 2. Excision of pilonidal cyst. SURGEON: Miguel Dixon M.D. SOCIAL MEDIA CONTENT MANAGER: Alex Fitzgerald M.D. ANESTHESIA: General. POSITION: Prone. TISSUE SPECIMEN: Sacral wound and pilonidal cyst tissues. DISPOSITION: Stable to recovery room. INDICATIONS FOR SURGERY: This is a 38-year-old male, who is well known to [facility], who is now approximately three weeks status post radical excision of groin hidradenitis tissue, who has been doing well following the reconstruction with skin grafting and flap advancement. However, he re-presented to the hospital with an elevated white count and tenderness in his sacral region. On exam, he was noted to have an infected sacral wound along with a pilonidal cyst, which required excision and staged reconstruction. He understood the risks and benefits of surgery and agreed to proceed. DETAILS OF THE OPERATION: The patient was brought to the operating room and after induction of anesthesia, was placed in a prone position on the operating room table. His buttocks were prepped and draped in a sterile and usual fashion. The area of the sacral wound was marked out with a marking pen and this measured 6 x 5 cm. A #15 blade was used to make the skin incision and the excision of the tissue was carried all the way down to the level of the presacral fascia removing all the granulation tissue that was exposed performing a full excision of the tissue down to healthy presacral fascia. Once this was done, we then noted that there was a connection between the sacral wound and a superior area, which was consistent with a pilonidal cyst. A corresponding skin incision was made to include the area that engulf the pilonidal cyst. This area was superior and measured approximately 3 x 4 cm. In a similar fashion to the sacral excision, the dissection was carried all the way down to the level of the presacral fascia and the specimen was removed on block. We removed two specimens, the sacral wound as well as the pilonidal cyst. Tissues were sent for pathology and the wound drainage was also cultured. Given the presence of infection, the plan was not to perform definitive flap advancement at this time and to perform wet-to-dry dressing to the wound over the next 72 hours and plan to bring the patient back for definitive flap closure of the sacral wound and pilonidal wound at that time. He tolerated the procedure well. There were no complications. Miguel Dixon M.D. DR: CARLOZ JOB#: [id number] CC:
[2018-06-18] MEDS: PCA shift volume MISC SCH (19:00)
[2018-06-18] MEDS ORDERED: Zolpidem 5mg tab ORAL PRN (21:00)
[2018-06-19] MEDS: Piperacillin/Tazobactam 3.375 GM in NS 110 ML IVPB SCH ×3 (06:06→21:17)
[2018-06-19] MEDS: D5NS 1,000 ML IV SCH ×2 (06:23→21:16)
[2018-06-19] MEDS: PCA shift volume MISC SCH ×2 (07:49→19:20)
[2018-06-19 08:00] VITALS: BP 102/58
[2018-06-19] MEDS: Heparin 5000 units/ml inj SUBQ SCH ×2 (09:00→21:00)
--- NOTE | 2018-06-19 10:03 | General Progress Note ---
Assessment/Plan Problem List: (1) Perirectal abscess ICD Codes: K61.1 - Rectal abscess SNOMED: 95133279 (2) Sacral wound ICD Codes: S31.000A - Unspecified open wound of lower back and pelvis without penetration into retroperitoneum, initial encounter SNOMED: 104190319 (3) Sepsis ICD Codes: A41.9 - Sepsis, unspecified organism SNOMED: 06658528 (4) Hidradenitis suppurativa ICD Codes: L73.2 - Hidradenitis suppurativa SNOMED: 89420275 (5) Anemia due to acute blood loss ICD Codes: D62 - Acute posthemorrhagic anemia SNOMED: 862926696 (6) Pilonidal cyst ICD Codes: L05.91 - Pilonidal cyst without abscess SNOMED: 14003633 Status: stable Assessment/Plan Plastic surgery consulted, appreciate rec's s/p excision of sacral wound and pilonidal cyst on 06/18/18 ID consulted, appreciate rec's Empiric linezolid + zosyn for now F/u cultures F/u repeat labs Wound care mIVFs Post operative recommendations include: - encourage mobilization/ambulation - encourage incentive spirometry to optimize pulmonary hygiene - DVT/GI prophylaxis as appropriate - pain control, supportive care, bowel regimen DVT Prophylaxis: SCD, HSQ Code Status: Full Hospital Classification Declaration: Based on this initial evaluation, and depending on the patient's clinical course, I anticipate that this patient will require hospitalization for 2-3 days for surgical mgmt, IV abx, and close respiratory/hemodynamic monitoring. Disposition: Once the patient is stable to leave the hospital, I anticipate the patient will likely be discharged to the following environment: back to ARU vs home w/ HH I spent 45 minutes on this patient's case, and 23 minutes were dedicated to counseling and/or care coordination. Discussed with patient/family, nursing staff, SW/CM, plastic surgery, ID regarding clinical status, treatment course, and disposition planning. Time of note may not reflect time of encounter. Subjective Date patient seen: Jun 19, 2018 Time patient seen: 10:03 ROS Limited/Unobtainable: No Allergies: Coded Allergies: VANCOMYCIN (Verified Adverse Reaction, Unknown, 05/23/18) breakouts and cheek Subjective No acute o/n events s/p excision of sacral wound and pilonidal cyst, POD#1 Refused AM labs Pt doing well. Pain controlled w/ FORGEMAN HELPER. Objective Last 24 Hour Vital Signs Date Time Temp Pulse Resp B/P (MAP) Pulse Ox O2 Delivery O2 Flow Rate FiO2 06/19/18 09:00 Room Air 06/19/18 08:00 18 06/19/18 08:00 98.4 80 20 102/58 (73) 96 98.4 06/19/18 04:00 18 06/19/18 00:00 18 06/18/18 21:00 Room Air 06/18/18 20:00 99.0 91 18 94/54 (67) 96 99.0 06/18/18 20:00 18 06/18/18 16:00 20 06/18/18 16:00 97.9 89 18 96/58 (71) 98 97.9 06/18/18 12:00 18 06/18/18 11:52 97.2 77 18 98/54 (69) 96 97.2 06/18/18 10:35 Room Air 06/18/18 10:35 18 06/18/18 10:30 77 17 106/64 100 Nasal Cannula 3 06/18/18 10:15 97.6 79 18 101/61 100 Nasal Cannula 3 97.6 Intake and Output 06/18/18 06/19/18 19:00 07:00 Intake Total 1890.0 ml Output Total 50 ml Balance 1840.0 ml Intake Oral 180 ml IV Total 1710.0 ml Estimated Blood Loss 50 ml Laboratory Tests 06/18/18 10:50: Sickle Cell Screen [Pending], Calcium (Send out) [Pending], Homocystine 6.8, Parathyroid Hormone (Intact) [Pending] Height (Feet): 6 Height (Inches): 3.00 Weight (Pounds): 173 Objective General: alert, cooperative, no distress, appears stated age Head: normocephalic, without obvious abnormality, atraumatic Eyes: conjunctivae/corneas clear. PERRL, EOM's intact Throat: lips, mucosa, and tongue normal. MMM Neck: supple, symmetrical, trachea midline, and no JVD Lungs: clear to auscultation bilaterally Heart: regular rate and rhythm, S1, S2 normal, no murmur, click, rub or gallop Abdomen: soft, non-tender, non-distended, bowel sounds normal; no masses or organomegaly Extremities: extremities normal, atraumatic, no cyanosis or edema Pulses: 2+ and symmetric Skin: dressing c/d/i Neurologic: grossly normal, no focal deficits Ronnell Zamudio M.D. Jun 19, 2018 10:03
[2018-06-19] MEDS: Dronabinol 2.5mg Cap ORAL SCH ×2 (11:05→18:34)
[2018-06-19] MEDS: Lactobacillus-GG tablet ORAL SCH ×2 (11:05→18:35)
[2018-06-19] MEDS: Docusate 100mg cap ORAL SCH ×2 (11:05→18:35)
[2018-06-19] MEDS: Zinc Sulfate 220mg cap ORAL SCH (11:05)
[2018-06-19] MEDS: Ascorbic Acid 500mg tab ORAL SCH ×2 (11:05→18:40)
[2018-06-19 12:00] VITALS: BP 105/51
[2018-06-19 16:00] VITALS: BP 101/54
--- NOTE | 2018-06-19 16:23 | General Progress Note ---
Assessment/Plan Assessment/Plan Assessment/Plan: # Hypercalcemia - with a protein - albumin gap, currently has improved, potentially related to dehydration initially --> obtain spep and upep initially --> appears initially is negative --> PTH and PTH-rp is negative as well at this time --> based on above, further w/u as needed # Anemia of chronic disease, in addition to iron deficiency component, hgb on admission was 10.0--> 9.1 --> Anemia w/u has been reviewed at this time. Will trend CBC as needed. --> Continue to monitor for stability --> Hgb goal above 7. Transfuse as needed on prn basis --> Blood tx: 2 units on 05/26 and at this time monitor # Leukocytosis 2/2 infection/cellulitis is on abx as well as recent debridement --> Continue to monitor WBC for improvement, also post-op at this point, left groin surgery --> Current WBC 18.5, remains elevated --> JAK2 has been ordered/results pending # Thrombocytosis. Reactive process to anemia and will improve. --> if plt count >600k, likely related to reactive process, will r/o cml/ET/PV with Flynn 2 --> Continue to closely monitor for improvement # Hidradenitis with gluteal abscess/infection/cellulitis, open wound, draining purulent fluid. w/ now gluteal abscess s/p exiciion of Pil cyst on 06/18/18 --> signs of infection on labs (leukocytosis) --> Dr. Miller closely following # Hyponatremia. --> Likely secondary to hypovolemia The time the note was entered does not necessarily correspond to the time the patient was seen. Greatly appreciate consultation! Subjective Constitutional: Denies: no symptoms, chills, diaphoresis, fever, malaise, weakness, other HEENT: Denies: no symptoms, eye pain, blurred vision, tearing, double vision, ear pain, ear discharge, nose pain, nose congestion, throat pain, throat swelling, mouth pain, mouth swelling, other Cardiovascular: Denies: no symptoms, chest pain, edema, irregular heart rate, lightheadedness, palpitations, syncope, other Respiratory: Denies: no symptoms, cough, orthopnea, shortness of breath, SOB with excertion, SOB at rest, sputum, stridor, wheezing, other Gastrointestinal/Abdominal: Denies: no symptoms, abdomen distended, abdominal pain, black stools, tarry stools, blood in stool, constipated, diarrhea, difficulty swallowing, nausea, poor appetite, poor fluid intake, rectal bleeding , vomiting, other Genitourinary: Denies: no symptoms, burning, discharge, frequency, flank pain, hematuria, incontinence, pain, urgency, other Neurologic/Psychiatric: Denies: no symptoms, anxiety, depressed, emotional problems, headache, numbness, paresthesia, pre-existing deficit, seizure, tingling, tremors, weakness, other Endocrine: Denies: no symptoms, excessive sweating, flushing, intolerance to cold, intolerance to heat, increased hunger, increased thirst, increased urine, unexplained weight gain, unexplained weight loss, other Hematologic/Lymphatic: Denies: no symptoms, anemia, easy bleeding, easy bruising, other Allergies: Coded Allergies: VANCOMYCIN (Verified Adverse Reaction, Unknown, 05/23/18) breakouts and cheek Subjective no fevers or chills, no events, no chills, s/p excision of wound yesterday Objective Last 24 Hour Vital Signs Date Time Temp Pulse Resp B/P (MAP) Pulse Ox O2 Delivery O2 Flow Rate FiO2 06/19/18 12:00 18 06/19/18 12:00 98.3 75 20 105/51 (69) 98 98.3 06/19/18 09:00 Room Air 06/19/18 08:00 18 06/19/18 08:00 98.4 80 20 102/58 (73) 96 98.4 06/19/18 04:00 18 06/19/18 00:00 18 06/18/18 21:00 Room Air 06/18/18 20:00 99.0 91 18 94/54 (67) 96 99.0 06/18/18 20:00 18 Intake and Output 06/18/18 06/19/18 19:00 07:00 Intake Total 1890.0 ml Output Total 50 ml Balance 1840.0 ml Intake Oral 180 ml IV Total 1710.0 ml Estimated Blood Loss 50 ml Laboratory Tests 06/19/18 11:20: Stool Occult Blood Negative 06/19/18 12:30: Urine Total Volume 24 Hours [Pending], Urine Creatinine 24 Hour [Pending], Urine Total Protein Timed [Pending], Urine Protein/Creatinine Ratio [Pending], Urine Albumin (%) [Pending], Urine [id number]-7-[id number] (%) [Pending], Urine Alpha- 2-Globulins (%) [Pending], Urine Beta-Globulin (%) [Pending], Urine Gamma Globulin (%) [Pending], Urine Protein Electrophoresis Intrp [Pending] Height (Feet): 6 Height (Inches): 3.00 Weight (Pounds): 173 General Appearance: no apparent distress EENT: TMs normal Neck: supple Cardiovascular: normal rate Respiratory/Chest: lungs clear Abdomen: no organomegaly Extremities: normal range of motion Edema: 1+ Leg (L), 1+ Leg (R) Neurologic: alert Skin: warm/dry Chris Quick MD Jun 19, 2018 16:23
[2018-06-19] MEDS ORDERED: D5 1/2NS 1000ml IV ONE (16:43)
[2018-06-19] MEDS ORDERED: NS 500ML ONE (16:43)
[2018-06-19 20:00] VITALS: BP 93/46
[2018-06-20 04:00] VITALS: BP 95/56
[2018-06-20] MEDS: Piperacillin/Tazobactam 3.375 GM in NS 110 ML IVPB SCH ×3 (05:54→21:34)
[2018-06-20] MEDS: PCA shift volume MISC SCH ×2 (07:21→19:18)
[2018-06-20] MEDS ORDERED: Rate Change PCA 1 Each MISC PRN (07:45)
[2018-06-20 08:00] VITALS: BP 104/40
[2018-06-20] MEDS ORDERED: PCA HYDROmorphone 1mg/ml 30 ML IV PRN (08:00)
[2018-06-20] MEDS: Docusate 100mg cap ORAL SCH ×2 (08:09→17:39)
[2018-06-20] MEDS: Ascorbic Acid 500mg tab ORAL SCH ×2 (08:09→17:39)
[2018-06-20] MEDS: Zinc Sulfate 220mg cap ORAL SCH (08:09)
[2018-06-20] MEDS: Lactobacillus-GG tablet ORAL SCH ×2 (08:09→17:39)
[2018-06-20] MEDS: Dronabinol 2.5mg Cap ORAL SCH ×2 (08:10→17:39)
[2018-06-20] MEDS: Heparin 5000 units/ml inj SUBQ SCH ×2 (08:10→21:00)
[2018-06-20] MEDS: D5NS 1,000 ML IV SCH ×2 (08:12→18:36)
[2018-06-20 08:25] LABS: BASOPHILS % (AUTO) 0.2 % (0.0-2.0); EOSINOPHILS % (AUTO) 3.7 % (0.0-3.0); HEMATOCRIT 29.1 % (42.0-52.0); HEMOGLOBIN 9.1 G/DL (14.2-18.0); LYMPHOCYTES % (AUTO) 21.1 % (20.0-45.0); MEAN CORPUSCULAR VOLUME 78 FL (80-99); MONOCYTES % (AUTO) 5.8 % (1.0-10.0); NEUTROPHILS % (AUTO) 69.2 % (45.0-75.0); PLATELET COUNT 594 K/UL (150-450); RED BLOOD COUNT 3.72 M/UL (4.70-6.10); RED CELL DISTRIBUTION WIDTH 15.9 % (11.6-14.8); WHITE BLOOD COUNT 12.2 K/UL (4.8-10.8)
[2018-06-20 08:43] LABS: ALANINE AMINOTRANSFERASE 20 U/L (12-78); ALBUMIN 1.7 G/DL (3.4-5.0); ALBUMIN/GLOBULIN RATIO 0.3 (1.0-2.7); ALKALINE PHOSPHATASE 176 U/L (46-116); ANION GAP 4 mmol/L (5-15); ASPARTATE AMINO TRANSFERASE 14 U/L (15-37); BILIRUBIN,DIRECT < 0.1 MG/DL (0.0-0.3); BILIRUBIN,TOTAL 0.3 MG/DL (0.2-1.0); BLOOD UREA NITROGEN 5 mg/dL (7-18); CALCIUM 9.7 MG/DL (8.5-10.1); CARBON DIOXIDE 29 MMOL/L (21-32); CHLORIDE 104 MMOL/L (98-107); CREATININE 0.8 MG/DL (0.55-1.30); POTASSIUM 3.9 MMOL/L (3.5-5.1); SODIUM 137 MMOL/L (136-145)
--- NOTE | 2018-06-20 08:54 | General Progress Note ---
Progress Note Progress Note Pt seen and examined. POD # 2 and stable. To OR tomorrow for VY flap closure of sacral wound. NPO and consent. RENEA Martinez MD Jun 20, 2018 08:54
[2018-06-20] MEDS ORDERED: D5NS 1000ml IV ONE (10:19)
--- NOTE | 2018-06-20 10:26 | General Progress Note ---
Assessment/Plan Problem List: (1) Perirectal abscess ICD Codes: K61.1 - Rectal abscess SNOMED: 86716763 (2) Sacral wound ICD Codes: S31.000A - Unspecified open wound of lower back and pelvis without penetration into retroperitoneum, initial encounter SNOMED: 769332754 (3) Sepsis ICD Codes: A41.9 - Sepsis, unspecified organism SNOMED: 77228912 (4) Hidradenitis suppurativa ICD Codes: L73.2 - Hidradenitis suppurativa SNOMED: 15565764 (5) Anemia due to acute blood loss ICD Codes: D62 - Acute posthemorrhagic anemia SNOMED: 396938292 (6) Pilonidal cyst ICD Codes: L05.91 - Pilonidal cyst without abscess SNOMED: 78211284 Status: stable Assessment/Plan Plastic surgery consulted, appreciate rec's s/p excision of sacral wound and pilonidal cyst on 06/18/18 Plan for OR tomorrow for flap closure ID consulted, appreciate rec's Empiric linezolid + zosyn for now F/u cultures F/u repeat labs Wound care mIVFs Post operative recommendations include: - encourage mobilization/ambulation - encourage incentive spirometry to optimize pulmonary hygiene - DVT/GI prophylaxis as appropriate - pain control, supportive care, bowel regimen DVT Prophylaxis: SCD, HSQ Code Status: Full Hospital Classification Declaration: Based on this initial evaluation, and depending on the patient's clinical course, I anticipate that this patient will require hospitalization for 2-3 days for surgical mgmt, IV abx, and close respiratory/hemodynamic monitoring. Disposition: Once the patient is stable to leave the hospital, I anticipate the patient will likely be discharged to the following environment: back to ARU vs home w/ HH I spent 42 minutes on this patient's case, and 22 minutes were dedicated to counseling and/or care coordination. Discussed with patient/family, nursing staff, SW/CM, plastic surgery, ID regarding clinical status, treatment course, and disposition planning. Time of note may not reflect time of encounter. Subjective Date patient seen: Jun 20, 2018 Time patient seen: 10:26 ROS Limited/Unobtainable: No Constitutional: Reports: no symptoms HEENT: Reports: no symptoms Cardiovascular: Reports: no symptoms Respiratory: Reports: no symptoms Gastrointestinal/Abdominal: Reports: no symptoms Genitourinary: Reports: no symptoms Neurologic/Psychiatric: Reports: no symptoms Endocrine: Reports: no symptoms Hematologic/Lymphatic: Reports: no symptoms Allergies: Coded Allergies: VANCOMYCIN (Verified Adverse Reaction, Unknown, 05/23/18) breakouts and cheek All Systems: reviewed and negative except above Subjective No acute o/n events s/p excision of sacral wound and pilonidal cyst, POD#2 Awaiting labs today, pt agreeable Pt doing well. Pain controlled w/ CLAIM MANAGER. Objective Last 24 Hour Vital Signs Date Time Temp Pulse Resp B/P (MAP) Pulse Ox O2 Delivery O2 Flow Rate FiO2 06/20/18 09:37 20 06/20/18 09:00 Room Air 06/20/18 08:00 19 06/20/18 08:00 98.5 72 19 104/40 (61) 96 98.5 06/20/18 04:00 18 06/20/18 04:00 98.3 76 18 95/56 (69) 97 98.3 06/20/18 00:00 18 06/19/18 21:00 Room Air 06/19/18 20:00 18 06/19/18 20:00 98.2 87 18 93/46 (62) 99 98.2 06/19/18 16:00 97.8 80 20 101/54 (70) 98 97.8 06/19/18 16:00 18 06/19/18 12:00 18 06/19/18 12:00 98.3 75 20 105/51 (69) 98 98.3 Intake and Output 06/19/18 06/20/18 19:00 07:00 Intake Total 315 ml 1322.5 ml Output Total 1000 ml Balance 315 ml 322.5 ml Intake Oral 240 ml 360 ml IV Total 75 ml 962.5 ml Output Urine Total 1000 ml # Voids 3 Laboratory Tests 06/19/18 11:20: Stool Occult Blood Negative 06/19/18 12:30: Urine Total Volume 24 Hours [Pending], Urine Creatinine 24 Hour [Pending], Urine Total Protein Timed [Pending], Urine Protein/Creatinine Ratio [Pending], Urine Albumin (%) [Pending], Urine Kpcio-9-Bfvjqdils (%) [Pending], Urine Alpha- 2-Globulins (%) [Pending], Urine Beta-Globulin (%) [Pending], Urine Gamma Globulin (%) [Pending], Urine Protein Electrophoresis Intrp [Pending] 06/20/18 07:30: White Blood Count 12.2H, Red Blood Count 3.72L, Hemoglobin 9.1L, Hematocrit 29.1L, Mean Corpuscular Volume 78L, Mean Corpuscular Hemoglobin 24.4L, Mean Corpuscular Hemoglobin Concent 31.2L, Red Cell Distribution Width 15.9H, Platelet Count 594H, Mean Platelet Volume 4.6L, Neutrophils (%) (Auto) 69.2, Lymphocytes (%) (Auto) 21.1, Monocytes (%) (Auto) 5.8, Eosinophils (%) (Auto) 3.7H, Basophils (%) (Auto) 0.2, Sodium Level 137, Potassium Level 3.9, Chloride Level 104, Carbon Dioxide Level 29, Anion Gap 4L, Blood Urea Nitrogen 5L, Creatinine 0.8, Estimat Glomerular Filtration Rate > 60, Glucose Level 98, Calcium Level 9.7, Total Bilirubin 0.3, Direct Bilirubin < 0.1, Aspartate Amino Transf (AST/SGOT) 14L, Alanine Aminotransferase (ALT/SGPT) 20, Alkaline Phosphatase 176H, Total Protein 7.9, Albumin 1.7L, Globulin 6.2, Albumin/ Globulin Ratio 0.3L Height (Feet): 6 Height (Inches): 3.00 Weight (Pounds): 173 Objective General: alert, cooperative, no distress, appears stated age Head: normocephalic, without obvious abnormality, atraumatic Eyes: conjunctivae/corneas clear. PERRL, EOM's intact Throat: lips, mucosa, and tongue normal. MMM Neck: supple, symmetrical, trachea midline, and no JVD Lungs: clear to auscultation bilaterally Heart: regular rate and rhythm, S1, S2 normal, no murmur, click, rub or gallop Abdomen: soft, non-tender, non-distended, bowel sounds normal; no masses or organomegaly Extremities: extremities normal, atraumatic, no cyanosis or edema Pulses: 2+ and symmetric Skin: dressing c/d/i Neurologic: grossly normal, no focal deficits Ronnell Zamudio M.D. Jun 20, 2018 10:26
[2018-06-20 12:00] VITALS: BP 109/48
--- NOTE | 2018-06-20 13:38 | General Progress Note ---
Assessment/Plan Assessment/Plan # Leukocytosis 2/2 infection/cellulitis is on abx as well as recent debridement --> Continue to monitor WBC for improvement, also post-op at this point, left groin surgery --> Current WBC 18.5, remains elevated --> JAK2 has been ordered/results pending # Hypercalcemia - with a protein - albumin gap, currently has improved, potentially related to dehydration initially --> spep and upep negative --> PTH and PTH-rp is negative as well at this time --> based on above, further w/u as needed # Anemia of chronic disease, in addition to iron deficiency component, hgb on admission was 10.0--> 9.1 --> Anemia w/u has been reviewed at this time. Will trend CBC as needed. --> Continue to monitor for stability --> Hgb goal above 7. Transfuse as needed on prn basis --> Blood tx: 2 units on 05/26 and at this time monitor # Thrombocytosis. Reactive process to anemia and will improve. --> if plt count >600k, likely related to reactive process, will r/o cml/ET/PV with Flynn 2 --> Continue to closely monitor for improvement # Hidradenitis with gluteal abscess/infection/cellulitis, open wound, draining purulent fluid. w/ now gluteal abscess s/p exiciion of Pil cyst on 06/18/18 --> signs of infection on labs (leukocytosis) --> Dr. Miller closely following # Hyponatremia. --> Likely secondary to hypovolemia The time the note was entered does not necessarily correspond to the time the patient was seen. Greatly appreciate consultation! Subjective Constitutional: Denies: no symptoms, chills, diaphoresis, fever, malaise, weakness, other HEENT: Denies: no symptoms, eye pain, blurred vision, tearing, double vision, ear pain, ear discharge, nose pain, nose congestion, throat pain, throat swelling, mouth pain, mouth swelling, other Cardiovascular: Denies: no symptoms, chest pain, edema, irregular heart rate, lightheadedness, palpitations, syncope, other Respiratory: Denies: no symptoms, cough, orthopnea, shortness of breath, SOB with excertion, SOB at rest, sputum, stridor, wheezing, other Gastrointestinal/Abdominal: Denies: no symptoms, abdomen distended, abdominal pain, black stools, tarry stools, blood in stool, constipated, diarrhea, difficulty swallowing, nausea, poor appetite, poor fluid intake, rectal bleeding , vomiting, other Genitourinary: Denies: no symptoms, burning, discharge, frequency, flank pain, hematuria, incontinence, pain, urgency, other Neurologic/Psychiatric: Denies: no symptoms, anxiety, depressed, emotional problems, headache, numbness, paresthesia, pre-existing deficit, seizure, tingling, tremors, weakness, other Endocrine: Denies: no symptoms, excessive sweating, flushing, intolerance to cold, intolerance to heat, increased hunger, increased thirst, increased urine, unexplained weight gain, unexplained weight loss, other Hematologic/Lymphatic: Denies: no symptoms, anemia, easy bleeding, easy bruising, other Allergies: Coded Allergies: VANCOMYCIN (Verified Adverse Reaction, Unknown, 05/23/18) breakouts and cheek Subjective no fevers or chills, no events, no chills, To OR tomorrow for VY flap closure of sacral wound. wbc being reviewed Objective Last 24 Hour Vital Signs Date Time Temp Pulse Resp B/P (MAP) Pulse Ox O2 Delivery O2 Flow Rate FiO2 06/20/18 12:00 19 06/20/18 12:00 97.8 72 19 109/48 (68) 97 97.8 06/20/18 09:37 20 06/20/18 09:00 Room Air 06/20/18 08:00 19 06/20/18 08:00 98.5 72 19 104/40 (61) 96 98.5 06/20/18 04:00 18 06/20/18 04:00 98.3 76 18 95/56 (69) 97 98.3 06/20/18 00:00 18 06/19/18 21:00 Room Air 06/19/18 20:00 18 06/19/18 20:00 98.2 87 18 93/46 (62) 99 98.2 06/19/18 16:00 97.8 80 20 101/54 (70) 98 97.8 06/19/18 16:00 18 Intake and Output 06/19/18 06/20/18 19:00 07:00 Intake Total 315 ml 1322.5 ml Output Total 1000 ml Balance 315 ml 322.5 ml Intake Oral 240 ml 360 ml IV Total 75 ml 962.5 ml Output Urine Total 1000 ml # Voids 3 Laboratory Tests 06/20/18 07:30: White Blood Count 12.2H, Red Blood Count 3.72L, Hemoglobin 9.1L, Hematocrit 29.1L, Mean Corpuscular Volume 78L, Mean Corpuscular Hemoglobin 24.4L, Mean Corpuscular Hemoglobin Concent 31.2L, Red Cell Distribution Width 15.9H, Platelet Count 594H, Mean Platelet Volume 4.6L, Neutrophils (%) (Auto) 69.2, Lymphocytes (%) (Auto) 21.1, Monocytes (%) (Auto) 5.8, Eosinophils (%) (Auto) 3.7H, Basophils (%) (Auto) 0.2, Sodium Level 137, Potassium Level 3.9, Chloride Level 104, Carbon Dioxide Level 29, Anion Gap 4L, Blood Urea Nitrogen 5L, Creatinine 0.8, Estimat Glomerular Filtration Rate > 60, Glucose Level 98, Calcium Level 9.7, Total Bilirubin 0.3, Direct Bilirubin < 0.1, Aspartate Amino Transf (AST/SGOT) 14L, Alanine Aminotransferase (ALT/SGPT) 20, Alkaline Phosphatase 176H, Total Protein 7.9, Albumin 1.7L, Globulin 6.2, Albumin/ Globulin Ratio 0.3L Height (Feet): 6 Height (Inches): 3.00 Weight (Pounds): 173 General Appearance: lethargic EENT: pharynx normal Neck: supple Cardiovascular: regular rhythm Respiratory/Chest: lungs clear Abdomen: soft Extremities: non-tender Edema: no edema noted Leg (L), no edema noted Leg (R) Edema: mild edema Neurologic: alert, responsive Skin: warm/dry Chris Quick MD Jun 20, 2018 13:38
--- NOTE | 2018-06-20 14:20 | Infectious Diseases Prog Note ---
Assessment/Plan Assessment/Plan A 1. perirectal abscess s/p Excision of sacral wound and pilonidal cyst 2. Hidradenitis suppurativa 3, leucocytosis 4. anemia P 1. continue linezolid, 2. continue zosyn 3. will follow up cultures Subjective ROS Limited/Unobtainable: No Constitutional: Reports: no symptoms Respiratory: Reports: dry cough Cardiovascular: Reports: no symptoms Gastrointestinal/Abdominal: Reports: no symptoms Musculoskeletal: Reports: pain, other - controlled Allergies: Coded Allergies: VANCOMYCIN (Verified Adverse Reaction, Unknown, 05/23/18) breakouts and cheek Objective Vital Signs Last 24 Hour Vital Signs Date Time Temp Pulse Resp B/P (MAP) Pulse Ox O2 Delivery O2 Flow Rate FiO2 06/20/18 12:00 19 06/20/18 12:00 97.8 72 19 109/48 (68) 97 97.8 06/20/18 09:37 20 06/20/18 09:00 Room Air 06/20/18 08:00 19 06/20/18 08:00 98.5 72 19 104/40 (61) 96 98.5 06/20/18 04:00 18 06/20/18 04:00 98.3 76 18 95/56 (69) 97 98.3 06/20/18 00:00 18 06/19/18 21:00 Room Air 06/19/18 20:00 18 06/19/18 20:00 98.2 87 18 93/46 (62) 99 98.2 06/19/18 16:00 97.8 80 20 101/54 (70) 98 97.8 06/19/18 16:00 18 Height (Feet): 6 Height (Inches): 3.00 Weight (Pounds): 173 General Appearance: no acute distress HEENT: mucous membranes moist Respiratory/Chest: lungs clear Cardiovascular: normal rate Abdomen: soft, non tender Skin: ulcers Neurologic/Psychiatric: alert, oriented x 3, responsive Microbiology Date/Time Source Procedure Growth Status 06/18/18 08:00 Sacral Wound Gram Stain - Final Resulted 06/18/18 08:00 Aerobic Culture - Preliminary Gram Negative Bacillus 1 Resulted 06/18/18 08:00 Sacral Wound Anaerobic Culture - Preliminary NO GROWTH AFTER 48 HOURS Resulted Laboratory Tests Test 06/20/18 07:30 White Blood Count 12.2 K/UL (4.8-10.8) H Red Blood Count 3.72 M/UL (4.70-6.10) L Hemoglobin 9.1 G/DL (14.2-18.0) L Hematocrit 29.1 % (42.0-52.0) L Mean Corpuscular Volume 78 FL (80-99) L Mean Corpuscular Hemoglobin 24.4 PG (27.0-31.0) L Mean Corpuscular Hemoglobin Concent 31.2 G/DL (32.0-36.0) L Red Cell Distribution Width 15.9 % (11.6-14.8) H Platelet Count 594 K/UL (150-450) H Mean Platelet Volume 4.6 FL (6.5-10.1) L Neutrophils (%) (Auto) 69.2 % (45.0-75.0) Lymphocytes (%) (Auto) 21.1 % (20.0-45.0) Monocytes (%) (Auto) 5.8 % (1.0-10.0) Eosinophils (%) (Auto) 3.7 % (0.0-3.0) H Basophils (%) (Auto) 0.2 % (0.0-2.0) Sodium Level 137 MMOL/L (136-145) Potassium Level 3.9 MMOL/L (3.5-5.1) Chloride Level 104 MMOL/L (98-107) Carbon Dioxide Level 29 MMOL/L (21-32) Anion Gap 4 mmol/L (5-15) L Blood Urea Nitrogen 5 mg/dL (7-18) L Creatinine 0.8 MG/DL (0.55-1.30) Estimat Glomerular Filtration Rate > 60 mL/min (>60) Glucose Level 98 MG/DL (74-106) Calcium Level 9.7 MG/DL (8.5-10.1) Total Bilirubin 0.3 MG/DL (0.2-1.0) Direct Bilirubin < 0.1 MG/DL (0.0-0.3) Aspartate Amino Transf (AST/SGOT) 14 U/L (15-37) L Alanine Aminotransferase (ALT/SGPT) 20 U/L (12-78) Alkaline Phosphatase 176 U/L (46-116) H Total Protein 7.9 G/DL (6.4-8.2) Albumin 1.7 G/DL (3.4-5.0) L Globulin 6.2 g/dL Albumin/Globulin Ratio 0.3 (1.0-2.7) L Current Medications Medications (Trade) Dose Ordered Sig/Marcell Route PRN Reason Start Time Stop Time Status Last Admin Dose Admin Acetaminophen (Tylenol) 650 mg Q4H PRN ORAL Mild Pain/Temp > 100.5 06/16/18 21:00 07/16/18 20:59 Ascorbic Acid (Vitamin C) 250 mg TWICE A DAY ORAL 06/17/18 09:00 07/17/18 08:59 06/20/18 08:09 Bisacodyl (Dulcolax) 10 mg DAILYPRN PRN RECTAL Constipation 06/16/18 21:00 07/16/18 20:59 Cetylpyridinium Chloride (Cepacol) 1 lozg Q2H PRN ORAL For Cough 06/16/18 21:45 07/16/18 21:44 06/20/18 13:31 Dextrose/Sodium Chloride 1,000 ml @ 75 mls/hr [id number] IV 06/18/18 04:15 07/18/18 04:14 06/20/18 08:12 Diphenhydramine HCl (Benadryl) 12.5 mg Q6H PRN IVP Itching/Pruritis 06/18/18 08:00 07/18/18 07:59 Docusate Sodium (Colace) 100 mg TWICE A DAY ORAL 06/17/18 09:00 07/17/18 08:59 06/20/18 08:09 Dronabinol (Marinol) 5 mg BID ORAL 06/17/18 09:00 07/17/18 08:59 06/20/18 08:10 Duloxetine HCl (Cymbalta) 20 mg DAILY ORAL 06/17/18 09:00 07/17/18 08:59 Heparin Sodium (Porcine) (Heparin 5000 units/ml) 5,000 units EVERY 12 HOURS SUBQ 06/18/18 09:00 07/18/18 08:59 Hydromorphone HCl 30 ml @ 0 mls/hr Q24H PRN IV For Pain 06/20/18 08:00 06/22/18 07:59 06/20/18 09:30 Hydromorphone HCl (Dilaudid) 2 mg Q3H PRN SUBQ Severe Pain (Pain Scale 7-10) 06/20/18 08:00 06/22/18 07:59 Hydromorphone HCl (Dilaudid) 2 mg Q4H PRN IVP Moderate Pain (Pain Scale 4-6) 06/20/18 08:00 06/22/18 07:59 Lactobacillus Acidophilus (Culturelle) 1 tab TWICE A DAY ORAL 06/17/18 09:00 07/17/18 08:59 06/20/18 08:09 Linezolid (Zyvox) 600 mg EVERY 12 HOURS ORAL 06/18/18 11:15 06/23/18 11:14 06/20/18 08:10 Miscellaneous Medication ([employer] Rate Change) 1 ea DAILY PRN MISC rate change 06/20/18 07:45 06/22/18 07:44 Miscellaneous Medication ([employer] shift volume) 1 ea Q12HR@0700,1900 MISC 06/20/18 19:00 06/22/18 18:59 Ondansetron HCl (Zofran) 4 mg Q6H PRN IVP Nausea & Vomiting 06/18/18 08:00 07/18/18 07:59 Piperacillin Sod/ Tazobactam Sod 3.375 gm/Sodium Chloride 110 ml @ 27.5 mls/hr Q8HR IVPB 06/17/18 06:00 06/24/18 05:59 06/20/18 13:31 Polyethylene Glycol (Miralax) 17 gm DAILY PRN ORAL Constipation 06/17/18 09:00 07/17/18 08:59 Zinc Sulfate (Zinc Sulfate) 220 mg DAILY ORAL 06/17/18 09:00 07/17/18 08:59 06/20/18 08:09 Zolpidem Tartrate (Ambien) 5 mg QHS PRN ORAL Insomnia 06/18/18 21:00 06/25/18 20:59 Koby Miner MD Jun 20, 2018 14:20
[2018-06-20 16:00] VITALS: BP 107/54
--- NOTE | 2018-06-20 18:20 | 48 Hour Post Anesthesia Eval ---
Post Anesthesia Evaluation Procedure: Excision of infected pilonidal cyst Date of Evaluation: Jun 20, 2018 Time of Evaluation: 18:20 Blood Pressure Systolic: 105 0: 54 Pulse Rate: 64 Temperature (Fahrenheit): 97.4 O2 Sat by Pulse Oximetry: 97 Airway: patent Nausea: No Vomiting: No Pain Intensity: 4 Hydration Status: adequate Cardiopulmonary Status: stable Mental Status/LOC: patient returned to baseline Follow-up Care/Observations: na Post-Anesthesia Complications: none Follow-up care needed: N/A Pham Kwan CRNA Jun 20, 2018 18:20
[2018-06-20 20:00] VITALS: BP 111/58
[2018-06-21] VITALS (15 sets, daily range): BP systolic 95–128; BP diastolic 47–90
[2018-06-21] MEDS: Piperacillin/Tazobactam 3.375 GM in NS 110 ML IVPB SCH (06:03)
[2018-06-21] MEDS ORDERED: Midazolam 2mg/2ml Inj ONE (07:00)
[2018-06-21] MEDS ORDERED: fentaNYL 100 mcg/2 mL IV ONE (07:00)
[2018-06-21] MEDS: PCA shift volume MISC SCH ×2 (07:02→19:25)
[2018-06-21] MEDS ORDERED: Zemuron 50mg/5ml Inj IV ONE (07:04)
[2018-06-21] MEDS ORDERED: Succinylcholine 20mg/ml 10ml vial ONE (07:04)
[2018-06-21] MEDS ORDERED: Lidocaine 1% 10mg/ml/EPI 0.01mg/ml 50ml INJ ONE (07:09)
[2018-06-21] MEDS ORDERED: EPINEPHrine 1mg/1ml Amp ONE (07:09)
[2018-06-21] MEDS ORDERED: NeoSporin Gu Irrig 1ml Amp IRRIG ONE (07:10)
[2018-06-21] MEDS ORDERED: Bacitracin 50000 Units Vial ONE (07:10)
--- NOTE | 2018-06-21 07:12 | Pre-Procedure Note/Attestation ---
Pre-Procedure Note/Attestation Complete Prior to Procedure Procedure Narrative: Sacral wound flap closure Indications for Procedure Pre-Operative Diagnosis: Sacral wound Attestation I attest that I discussed the nature of the procedure; its benefits; risks and complications; and alternatives (and the risks and benefits of such alternatives ), prior to the procedure, with the patient (or the patient's legal payable representative). I attest that, if there was a reasonable possibility of needing a blood transfusion, the patient (or the patient's legal payable representative) was given the [facility] standardized written summary, pursuant to the Connor Alli Blood Safety Act ([place] Health and Safety Code # 1645, as amended). I attest that I re-evaluated the patient just prior to the surgery and that there has been no change in the patient's H&P, except as documented below: RENEA MAYS Jun 21, 2018 07:12
[2018-06-21] MEDS ORDERED: PCA Education Pamphlet MISC ONE (07:15)
[2018-06-21] MEDS ORDERED: PCA HYDROmorphone 1mg/ml 30 ML IV PRN (07:15)
[2018-06-21] MEDS ORDERED: Rate Change PCA 1 Each MISC PRN (07:15)
[2018-06-21] MEDS ORDERED: Sterile Water Irrig 1000ml IRRIG ONE (07:30)
[2018-06-21] MEDS ORDERED: LR 1000ml ONE (07:30)
[2018-06-21] MEDS ORDERED: Neostigmine 1mg/ml 10ml Inj ONE (07:30)
[2018-06-21] MEDS ORDERED: NS Irrig 1000ml ONE (07:30)
[2018-06-21] MEDS ORDERED: Morphine Sulfate 10mg/ml Inj ONE (07:58)
[2018-06-21] MEDS ORDERED: Sodium Chloride 10ml vial INJ ONE (07:59)
[2018-06-21] MEDS ORDERED: LR 1000ml 1,000 ML IVLG SCH (08:29)
--- NOTE | 2018-06-21 08:29 | Anethesia Preoperative Eval ---
Anesthesia Pre-op PMH/ROS General Date of Evaluation: Jun 21, 2018 Time of Evaluation: 07:10 Anesthesiologist: Michelle ASA Score: ASA 2 Mallampati Score Class I : Soft palate, uvula, fauces, pillars visible Class II: Soft palate, uvula, fauces visible Class III: Soft palate, base of uvula visible Class IV: Only hard plate visible Mallampati Classification: Class II Surgeon: Zack Diagnosis: Recurrent HS Surgical Procedure: Revision and closure of sacral wound Anesthesia History: none Family History: no anesthesia problems Allergies: Coded Allergies: VANCOMYCIN (Verified Adverse Reaction, Unknown, 05/23/18) breakouts and cheek Past Medical History Cardiovascular: Denies: HTN, CAD, IA, valve dz, arrhythmia, other Pulmonary: Denies: asthma, COPD, CHETAN, other Gastrointestinal/Genitourinary: Reports: GERD; Denies: CRI, ESRD, other Neurologic/Psychiatric: Reports: depression/anxiety; Denies: dementia, CVA, TIA, other Endocrine: Denies: DM, hypothyroidism, steroids, other HEENT: Denies: cataract (L), cataract (R), glaucoma, MARY'S IGLOO (L), MARY'S IGLOO (R), other Hematology/Immune: Reports: anemia; Denies: DVT, bleeding disorder, other Musculoskeletal/Integumentary: Denies: OA, RA, DJD, DDD, edema, other PMH Narrative: as above PSxH Narrative: surgical treatment of recurrent HS Anesthesia Pre-op Phys. Exam Physician Exam Last Vital Signs Date Time Temp Pulse Resp B/P (MAP) Pulse Ox O2 Delivery O2 Flow Rate FiO2 06/21/18 06:00 98.2 76 20 105/56 (72) 97 98.2 06/20/18 21:00 Room Air 06/18/18 10:30 3 Constitutional: NAD Neurologic: CN 2-12 intact Airway Exam Mallampati Score: Class II MO: full Neck: flexible ROM: full Teeth: intact Dentures: no upper, no lower Anesthesia Pre-op A/P Labs see chart Risk Assessment & Plan Assessment: ASA 2 Plan: GA with ETT prone position Status Change Before Surgery: No Pre-Antibiotics Drug: Ancef 1 gr Given Within 1 Hr of Incision: Yes Time Given: 07:52 Omar Martinez MD Jun 21, 2018 08:29
[2018-06-21] MEDS ORDERED: Meperidine 50mg/ml Inj(FOR RIGORS ONLY) IV PRN (08:30)
[2018-06-21] MEDS ORDERED: Midazolam 2mg/2ml Inj IVP PRN (08:30)
[2018-06-21] MEDS ORDERED: Ketorolac 30mg Inj IV PRN (08:30)
[2018-06-21] MEDS ORDERED: Metoclopramide 10mg/2ml Inj IVP PRN (08:30)
[2018-06-21] MEDS ORDERED: fentaNYL 100 mcg/2 mL IV PRN (08:30)
[2018-06-21] MEDS ORDERED: DiphenhydrAMINE 50mg/ml Inj IVP PRN (08:30)
[2018-06-21] MEDS ORDERED: Glycopyrrolate 0.2mg/ml 1ml Vial ONE (08:34)
[2018-06-21] MEDS ORDERED: Ketorolac 30mg Inj ONE (08:34)
[2018-06-21] MEDS: Zinc Sulfate 220mg cap ORAL SCH (09:00)
[2018-06-21] MEDS: Docusate 100mg cap ORAL SCH ×2 (09:00→18:03)
[2018-06-21] MEDS: Heparin 5000 units/ml inj SUBQ SCH ×3 (09:00→20:18)
[2018-06-21] MEDS: Ascorbic Acid 500mg tab ORAL SCH ×2 (09:00→18:04)
[2018-06-21] MEDS: Lactobacillus-GG tablet ORAL SCH ×2 (09:00→18:04)
[2018-06-21] MEDS: Dronabinol 2.5mg Cap ORAL SCH ×2 (09:00→18:04)
--- NOTE | 2018-06-21 09:08 | General Progress Note ---
Assessment/Plan Assessment/Plan # Leukocytosis 2/2 infection/cellulitis is on abx as well as recent debridement --> Continue to monitor WBC for improvement, also post-op at this point, left groin surgery --> Current WBC 18.5, remains elevated --> JAK2 has been ordered/results pending # Hypercalcemia - with a protein - albumin gap, currently has improved, potentially related to dehydration initially --> spep and upep negative --> PTH and PTH-rp is negative as well at this time --> based on above, further w/u as needed # Anemia of chronic disease, in addition to iron deficiency component, hgb on admission was 10.0--> 9.1 --> Anemia w/u has been reviewed at this time. Will trend CBC as needed. --> Continue to monitor for stability --> Hgb goal above 7. Transfuse as needed on prn basis --> Blood tx: 2 units on 05/26 and at this time monitor # Thrombocytosis. Reactive process to anemia and will improve. --> if plt count >600k, likely related to reactive process, will r/o cml/ET/PV with Flynn 2 --> Continue to closely monitor for improvement # Hidradenitis with gluteal abscess/infection/cellulitis, open wound, draining purulent fluid. w/ now gluteal abscess s/p exiscion of Pil cyst on 06/18/18 --> signs of infection on labs (leukocytosis) --> Dr. Miller closely following --> surgery for 06/21/2018 # Hyponatremia. --> Likely secondary to hypovolemia The time the note was entered does not necessarily correspond to the time the patient was seen. Greatly appreciate consultation! Subjective Constitutional: Reports: no symptoms HEENT: Reports: no symptoms Cardiovascular: Reports: no symptoms Respiratory: Reports: no symptoms Gastrointestinal/Abdominal: Reports: no symptoms Genitourinary: Reports: no symptoms Neurologic/Psychiatric: Reports: no symptoms Endocrine: Reports: no symptoms Hematologic/Lymphatic: Reports: anemia Allergies: Coded Allergies: VANCOMYCIN (Verified Adverse Reaction, Unknown, 05/23/18) breakouts and cheek Subjective To OR today for VY flap closure of sacral wound. wbc being reviewed, cbc reviewed Objective Last 24 Hour Vital Signs Date Time Temp Pulse Resp B/P (MAP) Pulse Ox O2 Delivery O2 Flow Rate FiO2 06/21/18 06:00 98.2 76 20 105/56 (72) 97 98.2 06/21/18 04:00 19 06/21/18 00:00 19 06/21/18 00:00 98.1 73 20 118/52 (74) 97 98.1 06/20/18 21:00 Room Air 06/20/18 20:00 99.0 68 20 111/58 (75) 99 99.0 06/20/18 20:00 19 06/20/18 18:20 207.3 64 97 06/20/18 16:00 20 06/20/18 16:00 98.1 78 20 107/54 (71) 100 98.1 06/20/18 12:00 19 06/20/18 12:00 97.8 72 19 109/48 (68) 97 97.8 06/20/18 09:37 20 Intake and Output 06/20/18 06/21/18 19:00 07:00 Intake Total 1392.5 ml 633.0 ml Output Total 1800 ml Balance 1392.5 ml -1167.0 ml Intake Oral 300 ml 0 ml IV Total 1092.5 ml 633.0 ml Output Urine Total 1800 ml # Voids 6 Height (Feet): 6 Height (Inches): 3.00 Weight (Pounds): 173 General Appearance: no apparent distress EENT: PERRL/EOMI Neck: supple Cardiovascular: regular rhythm Respiratory/Chest: normal breath sounds Abdomen: non tender Extremities: non-tender Edema: no edema noted Leg (L), no edema noted Leg (R) Neurologic: alert Skin: warm/dry Objective perirectal abscess noted on the anal canal area Chris Quick MD Jun 21, 2018 09:08
--- NOTE | 2018-06-21 09:14 | Operative Note - PDOC ---
Operative Note Operative Note Pre-op Diagnosis: Sacral wound Procedure: Flap clsoure of sacral wound Post-op Diagnosis: same as pre-op Surgeon: Zack Director Of Social Services: Lia Anesthesia: general Specimen: yes Complications: none Condition: stable Estimated Blood Loss: minimal Drains: STEVEN Implant(s) used?: No RENEA MAYS Jun 21, 2018 09:14
[2018-06-21] MEDS ORDERED: Neosporin Oint Ud Pkt TOPIC ONE (09:32)
--- NOTE | 2018-06-21 09:35 | Immediate Post-Op Evaluation ---
Immediate Post-Op Evalulation Immediate Post-Op Evalulation Procedure: Revision and closure of sacral wound Date of Evaluation: Jun 21, 2018 Time of Evaluation: 09:34 IV Fluids: 1000 Blood Products: none Estimated Blood Loss: 50 Urinary Output: none Blood Pressure Systolic: 98 Blood Pressure Diastolic: 56 Pulse Rate: 78 Respiratory Rate: 20 O2 Sat by Pulse Oximetry: 98 Temperature (Fahrenheit): 98.3 Pain Score (1-10): 2 Nausea: No Vomiting: No Complications none Patient Status: reacts, patent, extubated, none Hydration Status: adequate Omar Martinez MD Jun 21, 2018 09:35
--- NOTE | 2018-06-21 11:16 | Infectious Diseases Prog Note ---
Assessment/Plan Assessment/Plan antibiotics : linezolid, zosyn A 1. perirectal abscess with pseudomonas s/p Excision of sacral wound and pilonidal cyst 2. Hidradenitis suppurativa 3, leucocytosis 4. anemia P 1. continue linezolid 2. d/c zosyn 3. start levoquin, flagyl 4. will follow up cultures Subjective Constitutional: Denies: fever, chills Respiratory: Denies: shortness of breath, dry cough Gastrointestinal/Abdominal: Denies: nausea, vomiting, diarrhea Musculoskeletal: Reports: pain Allergies: Coded Allergies: VANCOMYCIN (Verified Adverse Reaction, Unknown, 05/23/18) breakouts and cheek Objective Vital Signs Last 24 Hour Vital Signs Date Time Temp Pulse Resp B/P (MAP) Pulse Ox O2 Delivery O2 Flow Rate FiO2 06/21/18 10:55 98.9 76 17 101/54 99 Nasal Cannula 3 98.9 06/21/18 10:44 18 06/21/18 10:40 66 12 111/56 99 Nasal Cannula 3 06/21/18 10:29 14 06/21/18 10:25 64 15 102/58 99 Nasal Cannula 3 06/21/18 10:13 98.0 06/21/18 10:13 18 06/21/18 10:10 67 18 104/53 99 Nasal Cannula 3 06/21/18 09:55 71 18 104/58 99 Nasal Cannula 3 06/21/18 09:45 80 16 108/63 99 Simple Mask 6 06/21/18 09:35 76 18 103/62 99 Simple Mask 6 06/21/18 09:35 208.9 78 20 98 06/21/18 09:30 84 19 101/58 99 Simple Mask 6 06/21/18 09:26 99 84 20 95/49 99 Simple Mask 6 99.0 06/21/18 06:00 98.2 76 20 105/56 (72) 97 98.2 06/21/18 04:00 19 06/21/18 00:00 19 06/21/18 00:00 98.1 73 20 118/52 (74) 97 98.1 06/20/18 21:00 Room Air 06/20/18 20:00 99.0 68 20 111/58 (75) 99 99.0 06/20/18 20:00 19 06/20/18 18:20 207.3 64 97 06/20/18 16:00 20 06/20/18 16:00 98.1 78 20 107/54 (71) 100 98.1 06/20/18 12:00 19 06/20/18 12:00 97.8 72 19 109/48 (68) 97 97.8 Height (Feet): 6 Height (Inches): 3.00 Weight (Pounds): 173 Respiratory/Chest: lungs clear Cardiovascular: normal rate, regular rhythm, no gallop/murmur Abdomen: soft, non tender, other - buttocks in dressings Extremities: no edema Current Medications Medications (Trade) Dose Ordered Sig/Marcell Route PRN Reason Start Time Stop Time Status Last Admin Dose Admin Acetaminophen (Tylenol) 650 mg Q4H PRN ORAL Mild Pain/Temp > 100.5 06/16/18 21:00 07/16/18 20:59 Acetaminophen (Tylenol) 650 mg Q4H PRN ORAL FEVER 06/21/18 07:15 07/21/18 07:14 UNV Ascorbic Acid (Vitamin C) 250 mg TWICE A DAY ORAL 06/17/18 09:00 07/17/18 08:59 06/20/18 17:39 Bisacodyl (Dulcolax) 10 mg DAILYPRN PRN RECTAL Constipation 06/16/18 21:00 07/16/18 20:59 Cetylpyridinium Chloride (Cepacol) 1 lozg Q2H PRN ORAL For Cough 06/16/18 21:45 07/16/18 21:44 06/20/18 21:43 Dextrose/Sodium Chloride 1,000 ml @ 75 mls/hr [id number] IV 06/18/18 04:15 07/18/18 04:14 06/20/18 18:36 Diphenhydramine HCl (Benadryl) 12.5 mg Q6H PRN IVP Itching/Pruritis 06/18/18 08:00 07/18/18 07:59 Diphenhydramine HCl (Benadryl) 25 mg Q15M PRN IVP Itching 06/21/18 08:30 06/21/18 16:00 Docusate Sodium (Colace) 100 mg TWICE A DAY ORAL 06/17/18 09:00 07/17/18 08:59 06/20/18 17:39 Dronabinol (Marinol) 5 mg BID ORAL 06/17/18 09:00 07/17/18 08:59 06/20/18 17:39 Duloxetine HCl (Cymbalta) 20 mg DAILY ORAL 06/17/18 09:00 07/17/18 08:59 Fentanyl Citrate (Sublimaze 100 mcg/2 mL) 50 mcg Q10M PRN IV Moderate Pain (Pain Scale 4-6) 06/21/18 08:30 06/21/18 16:00 Heparin Sodium (Porcine) (Heparin 5000 units/ml) 5,000 units EVERY 12 HOURS SUBQ 06/18/18 09:00 07/18/18 08:59 Heparin Sodium (Porcine) (Heparin 5000 units/ml) 5,000 units EVERY 12 HOURS SUBQ 06/21/18 09:00 07/21/18 08:59 UNV Hydromorphone HCl 30 ml @ 0 mls/hr Q24H PRN IV For Pain 06/21/18 07:15 06/23/18 07:14 06/21/18 10:13 Hydromorphone HCl (Dilaudid) 2 mg Q3H PRN SUBQ Severe Pain (Pain Scale 7-10) 06/20/18 08:00 06/22/18 07:59 Hydromorphone HCl (Dilaudid) 2 mg Q4H PRN IVP Moderate Pain (Pain Scale 4-6) 06/20/18 08:00 06/22/18 07:59 Ketorolac Tromethamine (Toradol 30mg) 30 mg Q1H PRN IV Severe Breakthru Pain (>7) 06/21/18 08:30 06/21/18 16:00 Lactated Ringer's 1,000 ml @ 10 mls/hr Q24H IVLG 06/21/18 08:29 06/21/18 16:00 Lactobacillus Acidophilus (Culturelle) 1 tab TWICE A DAY ORAL 06/17/18 09:00 07/17/18 08:59 06/20/18 17:39 Linezolid (Zyvox) 600 mg EVERY 12 HOURS ORAL 06/18/18 11:15 06/23/18 11:14 06/20/18 21:33 Meperidine HCl (Demerol) 25 mg Q15M PRN IV chills 06/21/18 08:30 06/21/18 16:00 Metoclopramide HCl (Reglan) 10 mg Q1H PRN IVP Nausea & Vomiting 06/21/18 08:30 06/21/18 16:00 Midazolam HCl (Versed 2mg/2ml vial) 1 mg Q15M PRN IVP For Anxiety 06/21/18 08:30 06/21/18 16:00 Miscellaneous Medication (CLINIC LPN Rate Change) 1 ea DAILY PRN MISC rate change 06/21/18 07:15 06/23/18 07:14 Miscellaneous Medication (CLINIC LPN shift volume) 1 ea Q12HR@0700,1900 MISC 06/20/18 19:00 06/22/18 18:59 06/21/18 07:02 Miscellaneous Medication (CLINIC LPN shift volume) 1 ea Q12HR@0700,1900 MISC 06/21/18 19:00 06/23/18 18:59 UNV Ondansetron HCl (Zofran) 4 mg Q6H PRN IVP Nausea & Vomiting 06/18/18 08:00 07/18/18 07:59 Ondansetron HCl (Zofran) 4 mg Q6H PRN IVP Nausea & Vomiting 06/21/18 07:15 07/21/18 07:14 UNV Piperacillin Sod/ Tazobactam Sod 3.375 gm/Sodium Chloride 110 ml @ 27.5 mls/hr Q8HR IVPB 06/17/18 06:00 06/24/18 05:59 06/21/18 06:03 Polyethylene Glycol (Miralax) 17 gm DAILY PRN ORAL Constipation 06/17/18 09:00 07/17/18 08:59 Zinc Sulfate (Zinc Sulfate) 220 mg DAILY ORAL 06/17/18 09:00 07/17/18 08:59 06/20/18 08:09 Zolpidem Tartrate (Ambien) 5 mg DAILYPRN PRN ORAL Insomnia 06/21/18 07:15 06/28/18 07:14 UNV Zolpidem Tartrate (Ambien) 5 mg QHS PRN ORAL Insomnia 06/18/18 21:00 06/25/18 20:59 JEANCARLOS DAS Jun 21, 2018 11:16
[2018-06-21] MEDS: Levofloxacin 500mg tab ORAL SCH (12:53)
[2018-06-21] MEDS: D5NS 1,000 ML IV SCH ×2 (12:54→21:19)
[2018-06-21] MEDS: metroNIDAZOLE 500mg tab ORAL SCH ×2 (14:56→21:12)
--- NOTE | 2018-06-21 15:00 | Operative Note - Dictated ---
DATE OF OPERATION: 06/21/2018 PREOPERATIVE DIAGNOSIS: Open sacral wound, status post excision of pilonidal cyst and excision of sacral wound. POSTOPERATIVE DIAGNOSIS: Open sacral wound, status post excision of pilonidal cyst and excision of sacral wound. PROCEDURES: 1. Preparation of sacral wound for flap closure. 2. Elevation of a right-sided V-Y flap for closure of the sacral wound. 3. Elevation of a left-sided V-Y flap for closure of the sacral wound. SURGEON: Miguel Dixon M.D. INSULATION FOREMAN: Alex Fitzgerald M.D. ANESTHESIA: General. COMPLICATIONS: None. DRAINS: Included one size 15 STEVEN. DISPOSITION: Stable to the recovery room. INDICATIONS FOR SURGERY: This is a 38-year-old male with a longstanding history of hidradenitis suppurativa as well as a sacral wound. He has undergone reconstruction of his perineum that was affected with hidradenitis and three days ago underwent radical excision of the sacral wound and pilonidal cyst and has been undergoing wet-to-dry dressing changes and is now ready for definitive closure of his wound. The wound measured 8 x 6 cm and was not amenable to primary closure. As such, bilateral V-Y flaps were planned to close these wounds. He understood the risks and benefits of surgery and agreed to proceed. DETAILS OF THE OPERATION: The patient was brought to the operating room and laid in the supine position on the operating room gurney and he was then intubated and turned over onto the operating room bed and placed in the prone position. Once this was done, the patient's lower back was prepped and draped in a sterile and usual fashion. The area was draped and we began by designing V-Y flaps on both sides of the wound. Once the flaps were designed, the wound was debrided with nonviable tissue in preparation for flap transfer and we began on the right side by using a #10 blade to make the V incision. Dissection was carried down all way to the level of the gluteus blessing epimysium to release the fascial attachments and allow for medial movement of the flap. Once the flap was fully mobilized, a similar incision was made on the left side to expose the underlying buttock fat and dissection was carried down to the epimysium on that side as well fully releasing the flap. Once both flaps were fully mobilized, there were also medially released and on the medial and the lateral edges of the sacral wound itself to allow for good coaptation. The wound was then copiously irrigated with pulse lavage. A STEVEN drain was placed into the central aspect of the wound and the V-Y flaps were then brought together throughout the midline using #0 and 2-0 Vicryl sutures. The donor sites for both flaps were closed creating a Y-type incision, #0 and 2-0 Vicryl were used to close the wound and cynthia were then used to close the skin. For both donor sites and a multiple interrupted vertical mattress 2-0 Prolene sutures were used to close the central aspect of the wound. A STEVEN drain was secured using a 3-0 silk suture. A bulky dressing was then applied to the wound. The patient tolerated the procedure well. There were no complications. Miguel Dixon M.D. DR: JAYDEN JOB#: [id number] CC: DEE
[2018-06-21] MEDS ORDERED: PCA shift volume MISC SCH (19:00)
[2018-06-21] MEDS ORDERED: Zolpidem 5mg tab ORAL PRN (21:00)
--- NOTE | 2018-06-21 23:59 | General Progress Note ---
Assessment/Plan Problem List: (1) Perirectal abscess ICD Codes: K61.1 - Rectal abscess SNOMED: 27048828 (2) Sacral wound ICD Codes: S31.000A - Unspecified open wound of lower back and pelvis without penetration into retroperitoneum, initial encounter SNOMED: 987046488 (3) Sepsis ICD Codes: A41.9 - Sepsis, unspecified organism SNOMED: 14205001 (4) Hidradenitis suppurativa ICD Codes: L73.2 - Hidradenitis suppurativa SNOMED: 25376285 (5) Anemia due to acute blood loss ICD Codes: D62 - Acute posthemorrhagic anemia SNOMED: 406670961 (6) Pilonidal cyst ICD Codes: L05.91 - Pilonidal cyst without abscess SNOMED: 00342767 Status: stable Assessment/Plan Plastic surgery consulted, appreciate rec's s/p excision of sacral wound and pilonidal cyst on 06/18/18 s/p flap closure of sacral wound on 06/21/18 ID consulted, appreciate rec's Cont linezolid PO per ID Start levaquin + flagyl per ID D/c zosyn F/u cultures--pseudomonas F/u repeat labs Wound care mIVFs Post operative recommendations include: - encourage mobilization/ambulation - encourage incentive spirometry to optimize pulmonary hygiene - DVT/GI prophylaxis as appropriate - pain control, supportive care, bowel regimen DVT Prophylaxis: SCD, HSQ Code Status: Full Hospital Classification Declaration: Based on this initial evaluation, and depending on the patient's clinical course, I anticipate that this patient will require hospitalization for 2-3 days for surgical mgmt, IV abx, and close respiratory/hemodynamic monitoring. Disposition: Once the patient is stable to leave the hospital, I anticipate the patient will likely be discharged to the following environment: back to ARU vs home w/ HH I spent 45 minutes on this patient's case, and 23 minutes were dedicated to counseling and/or care coordination. Discussed with patient/family, nursing staff, SW/CM, plastic surgery, ID regarding clinical status, treatment course, and disposition planning. Time of note may not reflect time of encounter. Subjective Date patient seen: Jun 21, 2018 Time patient seen: 12:00 ROS Limited/Unobtainable: No Constitutional: Reports: no symptoms HEENT: Reports: no symptoms Cardiovascular: Reports: no symptoms Respiratory: Reports: no symptoms Gastrointestinal/Abdominal: Reports: no symptoms Genitourinary: Reports: no symptoms Neurologic/Psychiatric: Reports: no symptoms Endocrine: Reports: no symptoms Hematologic/Lymphatic: Reports: no symptoms Allergies: Coded Allergies: VANCOMYCIN (Verified Adverse Reaction, Unknown, 05/23/18) breakouts and cheek Subjective No acute o/n events s/p excision of sacral wound and pilonidal cyst, POD#3 s/p flap clsoure of sacral wound, POD#0 WBC downtrending Pt doing well. Pain controlled w/ BOOKKEEPER. Objective Last 24 Hour Vital Signs Date Time Temp Pulse Resp B/P (MAP) Pulse Ox O2 Delivery O2 Flow Rate FiO2 06/21/18 21:00 Room Air 06/21/18 20:00 18 06/21/18 20:00 98.0 82 18 128/90 (103) 97 98.0 06/21/18 16:00 16 06/21/18 16:00 98.0 67 103/47 (65) 98.0 06/21/18 12:00 97.3 58 17 104/54 (71) 98 97.3 06/21/18 11:33 Room Air 06/21/18 11:31 16 06/21/18 11:00 97.8 63 101/59 (73) 97.8 06/21/18 10:55 98.9 76 17 101/54 99 Nasal Cannula 3 98.9 06/21/18 10:44 18 06/21/18 10:40 66 12 111/56 99 Nasal Cannula 3 06/21/18 10:29 14 06/21/18 10:25 64 15 102/58 99 Nasal Cannula 3 06/21/18 10:13 98.0 06/21/18 10:13 18 06/21/18 10:10 67 18 104/53 99 Nasal Cannula 3 06/21/18 09:55 71 18 104/58 99 Nasal Cannula 3 06/21/18 09:45 80 16 108/63 99 Simple Mask 6 06/21/18 09:35 76 18 103/62 99 Simple Mask 6 06/21/18 09:35 208.9 78 20 98 06/21/18 09:30 84 19 101/58 99 Simple Mask 6 06/21/18 09:26 99 84 20 95/49 99 Simple Mask 6 99.0 06/21/18 06:00 98.2 76 20 105/56 (72) 97 98.2 06/21/18 04:00 19 06/21/18 00:00 19 06/21/18 00:00 98.1 73 20 118/52 (74) 97 98.1 Intake and Output 06/20/18 06/21/18 19:00 07:00 Intake Total 1392.5 ml 633.0 ml Output Total 1800 ml Balance 1392.5 ml -1167.0 ml Intake Oral 300 ml 0 ml IV Total 1092.5 ml 633.0 ml Output Urine Total 1800 ml # Voids 6 Height (Feet): 6 Height (Inches): 3.00 Weight (Pounds): 173 Objective General: alert, cooperative, no distress, appears stated age Head: normocephalic, without obvious abnormality, atraumatic Eyes: conjunctivae/corneas clear. PERRL, EOM's intact Throat: lips, mucosa, and tongue normal. MMM Neck: supple, symmetrical, trachea midline, and no JVD Lungs: clear to auscultation bilaterally Heart: regular rate and rhythm, S1, S2 normal, no murmur, click, rub or gallop Abdomen: soft, non-tender, non-distended, bowel sounds normal; no masses or organomegaly Extremities: extremities normal, atraumatic, no cyanosis or edema Pulses: 2+ and symmetric Skin: dressing c/d/i Neurologic: grossly normal, no focal deficits Ronnell Zamudio M.D. Jun 21, 2018 23:58
[2018-06-22 04:00] VITALS: BP 95/52
[2018-06-22] MEDS: metroNIDAZOLE 500mg tab ORAL SCH ×3 (06:09→21:08)
--- NOTE | 2018-06-22 06:50 | General Progress Note ---
Assessment/Plan Assessment/Plan # Leukocytosis 2/2 infection/cellulitis is on abx as well as recent debridement --> Continue to monitor WBC for improvement, also post-op at this point, left groin surgery --> Current WBC 10-18.5k range, remains elevated --> JAK2 has been ordered/results pending # Hypercalcemia - with a protein - albumin gap, currently has improved, potentially related to dehydration initially --> spep and upep negative --> PTH and PTH-rp is negative as well at this time --> based on above, further w/u as needed # Anemia of chronic disease, in addition to iron deficiency component, hgb on admission was 10.0--> 9.1 --> Anemia w/u has been reviewed at this time. Will trend CBC as needed. --> Continue to monitor for stability --> Hgb goal above 7. Transfuse as needed on prn basis --> Blood tx: 2 units on 05/26 and at this time monitor # Thrombocytosis. Reactive process to anemia and will improve. --> if plt count >600k, likely related to reactive process, will r/o cml/ET/PV with Flynn 2 --> Continue to closely monitor for improvement # Hidradenitis with gluteal abscess/infection/cellulitis, open wound, draining purulent fluid. w/ now gluteal abscess s/p exiscion of Pil cyst on 06/18/18 --> signs of infection on labs (leukocytosis) --> Dr. Miller closely following --> surgery done 06/21/2018 # Hyponatremia. --> Likely secondary to hypovolemia The time the note was entered does not necessarily correspond to the time the patient was seen. Greatly appreciate consultation! Subjective Constitutional: Denies: no symptoms, chills, diaphoresis, fever, malaise, weakness, other HEENT: Denies: no symptoms, eye pain, blurred vision, tearing, double vision, ear pain, ear discharge, nose pain, nose congestion, throat pain, throat swelling, mouth pain, mouth swelling, other Cardiovascular: Denies: no symptoms, chest pain, edema, irregular heart rate, lightheadedness, palpitations, syncope, other Gastrointestinal/Abdominal: Denies: no symptoms, abdomen distended, abdominal pain, black stools, tarry stools, blood in stool, constipated, diarrhea, difficulty swallowing, nausea, poor appetite, poor fluid intake, rectal bleeding , vomiting, other Genitourinary: Denies: no symptoms, burning, discharge, frequency, flank pain, hematuria, incontinence, pain, urgency, other Neurologic/Psychiatric: Denies: no symptoms, anxiety, depressed, emotional problems, headache, numbness, paresthesia, pre-existing deficit, seizure, tingling, tremors, weakness, other Endocrine: Denies: no symptoms, excessive sweating, flushing, intolerance to cold, intolerance to heat, increased hunger, increased thirst, increased urine, unexplained weight gain, unexplained weight loss, other Hematologic/Lymphatic: Denies: no symptoms, anemia, easy bleeding, easy bruising, other Allergies: Coded Allergies: VANCOMYCIN (Verified Adverse Reaction, Unknown, 05/23/18) breakouts and cheek Subjective s/p repair of excisional wound, and cbc reviewed Objective Last 24 Hour Vital Signs Date Time Temp Pulse Resp B/P (MAP) Pulse Ox O2 Delivery O2 Flow Rate FiO2 06/22/18 04:00 98.4 75 18 95/52 (66) 98 98.4 06/22/18 04:00 18 06/21/18 21:00 Room Air 06/21/18 20:00 18 06/21/18 20:00 98.0 82 18 128/90 (103) 97 98.0 06/21/18 16:00 16 06/21/18 16:00 98.0 67 103/47 (65) 98.0 06/21/18 12:00 97.3 58 17 104/54 (71) 98 97.3 06/21/18 11:33 Room Air 06/21/18 11:31 16 06/21/18 11:00 97.8 63 101/59 (73) 97.8 06/21/18 10:55 98.9 76 17 101/54 99 Nasal Cannula 3 98.9 06/21/18 10:44 18 06/21/18 10:40 66 12 111/56 99 Nasal Cannula 3 06/21/18 10:29 14 06/21/18 10:25 64 15 102/58 99 Nasal Cannula 3 06/21/18 10:13 98.0 06/21/18 10:13 18 06/21/18 10:10 67 18 104/53 99 Nasal Cannula 3 06/21/18 09:55 71 18 104/58 99 Nasal Cannula 3 06/21/18 09:45 80 16 108/63 99 Simple Mask 6 06/21/18 09:35 76 18 103/62 99 Simple Mask 6 06/21/18 09:35 208.9 78 20 98 06/21/18 09:30 84 19 101/58 99 Simple Mask 6 06/21/18 09:26 99 84 20 95/49 99 Simple Mask 6 99.0 Intake and Output 06/21/18 06/22/18 19:00 07:00 Intake Total 1975 ml 1250 ml Output Total 2070 ml 20 ml Balance -95 ml 1230 ml Intake Oral 800 ml 500 ml IV Total 1175 ml 750 ml Output Urine Total 2000 ml Stool Total 0 ml Drainage Total 20 ml 20 ml Estimated Blood Loss 50 ml # Voids 2 4 Height (Feet): 6 Height (Inches): 3.00 Weight (Pounds): 173 General Appearance: no apparent distress EENT: normal ENT inspection Neck: supple Cardiovascular: regular rhythm Respiratory/Chest: normal breath sounds Genitourinary/Rectal: heme negative stool Extremities: normal range of motion Edema: no edema noted Leg (L), no edema noted Leg (R) Edema: mild edema Neurologic: alert Objective perirectal abscess noted on the anal canal area Chris Quick MD Jun 22, 2018 06:50
[2018-06-22] MEDS: PCA shift volume MISC SCH (07:00)
[2018-06-22 08:00] VITALS: BP 95/51
[2018-06-22] MEDS: Heparin 5000 units/ml inj SUBQ SCH ×2 (09:00→21:00)
--- NOTE | 2018-06-22 09:12 | 48 Hour Post Anesthesia Eval ---
Post Anesthesia Evaluation Procedure: Revision and closure of sacral wound Date of Evaluation: Jun 22, 2018 Time of Evaluation: 14:05 Blood Pressure Systolic: 95 0: 51 Pulse Rate: 64 Respiratory Rate: 18 Temperature (Fahrenheit): 98 O2 Sat by Pulse Oximetry: 97 Airway: patent Nausea: No Vomiting: No Pain Intensity: 2 Hydration Status: adequate Cardiopulmonary Status: Stable Mental Status/LOC: patient returned to baseline Follow-up Care/Observations: As per surgery Post-Anesthesia Complications: No anesthetic complication Follow-up care needed: N/A Connor Andrea MD Jun 22, 2018 09:12
[2018-06-22] MEDS: Lactobacillus-GG tablet ORAL SCH ×2 (09:21→18:45)
[2018-06-22] MEDS: Levofloxacin 500mg tab ORAL SCH (09:22)
[2018-06-22] MEDS: Ascorbic Acid 500mg tab ORAL SCH ×2 (09:22→18:46)
[2018-06-22] MEDS: Dronabinol 2.5mg Cap ORAL SCH ×3 (09:22→18:50)
[2018-06-22] MEDS: Docusate 100mg cap ORAL SCH ×2 (09:22→18:45)
[2018-06-22] MEDS: Zinc Sulfate 220mg cap ORAL SCH (09:23)
[2018-06-22] MEDS: D5NS 1,000 ML IV SCH (10:40)
[2018-06-22 12:00] VITALS: BP 111/61
[2018-06-22 16:00] VITALS: BP 110/61
[2018-06-22] MEDS ORDERED: Rate Change PCA 1 Each MISC PRN (16:00)
[2018-06-22] MEDS ORDERED: PCA HYDROmorphone 1mg/ml 30 ML IV PRN (16:00)
[2018-06-22] MEDS ORDERED: Naloxone 0.4mg/ml Inj IV PRN (16:00)
[2018-06-22] MEDS ORDERED: Norco 5mg/325mg tab ORAL PRN (16:30)
[2018-06-22] MEDS ORDERED: HYDROmorphone 1mg/ml Carpuject SUBQ PRN (16:30)
[2018-06-22] MEDS ORDERED: D5NS 1000ml IV ONE (16:36)
[2018-06-22] MEDS: HYDROcodone/Acetamin 10/325 tab ORAL PRN (18:56)
[2018-06-22 20:00] VITALS: BP 110/53
--- NOTE | 2018-06-22 23:23 | General Progress Note ---
Assessment/Plan Problem List: (1) Perirectal abscess ICD Codes: K61.1 - Rectal abscess SNOMED: 92337767 (2) Sacral wound ICD Codes: S31.000A - Unspecified open wound of lower back and pelvis without penetration into retroperitoneum, initial encounter SNOMED: 203897554 (3) Sepsis ICD Codes: A41.9 - Sepsis, unspecified organism SNOMED: 20352064 (4) Hidradenitis suppurativa ICD Codes: L73.2 - Hidradenitis suppurativa SNOMED: 71031309 (5) Anemia due to acute blood loss ICD Codes: D62 - Acute posthemorrhagic anemia SNOMED: 631209416 (6) Pilonidal cyst ICD Codes: L05.91 - Pilonidal cyst without abscess SNOMED: 96730513 Status: stable Assessment/Plan Plastic surgery consulted, appreciate rec's s/p excision of sacral wound and pilonidal cyst on 06/18/18 s/p flap closure of sacral wound on 06/21/18 ID consulted, appreciate rec's Cont linezolid PO per ID Cont levaquin + flagyl per ID D/c zosyn F/u cultures--pseudomonas F/u repeat labs Wound care mIVFs Post operative recommendations include: - encourage mobilization/ambulation - encourage incentive spirometry to optimize pulmonary hygiene - DVT/GI prophylaxis as appropriate - pain control, supportive care, bowel regimen DVT Prophylaxis: SCD, HSQ Code Status: Full Hospital Classification Declaration: Based on this initial evaluation, and depending on the patient's clinical course, I anticipate that this patient will require hospitalization for 2-3 days for surgical mgmt, IV abx, and close respiratory/hemodynamic monitoring. Disposition: Once the patient is stable to leave the hospital, I anticipate the patient will likely be discharged to the following environment: back to ARU vs home w/ HH I spent 42 minutes on this patient's case, and 22 minutes were dedicated to counseling and/or care coordination. Discussed with patient/family, nursing staff, SW/CM, plastic surgery, ID regarding clinical status, treatment course, and disposition planning. Time of note may not reflect time of encounter. Subjective Date patient seen: Jun 22, 2018 Time patient seen: 12:00 ROS Limited/Unobtainable: No Constitutional: Reports: no symptoms HEENT: Reports: no symptoms Cardiovascular: Reports: no symptoms Respiratory: Reports: no symptoms Gastrointestinal/Abdominal: Reports: no symptoms Genitourinary: Reports: no symptoms Neurologic/Psychiatric: Reports: no symptoms Endocrine: Reports: no symptoms Hematologic/Lymphatic: Reports: no symptoms Allergies: Coded Allergies: VANCOMYCIN (Verified Adverse Reaction, Unknown, 05/23/18) breakouts and cheek All Systems: reviewed and negative except above Subjective No acute o/n events s/p excision of sacral wound and pilonidal cyst, POD#4 s/p flap clsoure of sacral wound, POD#1 WBC downtrending Pt doing well. Pain controlled w/ [employer]. Objective Last 24 Hour Vital Signs Date Time Temp Pulse Resp B/P (MAP) Pulse Ox O2 Delivery O2 Flow Rate FiO2 06/22/18 21:00 Room Air Room Air 06/22/18 20:00 98.0 88 16 110/53 (72) 100 98.0 06/22/18 18:56 98.3 06/22/18 16:34 18 06/22/18 16:00 98.3 75 18 110/61 (77) 98 98.3 06/22/18 12:00 18 06/22/18 12:00 98.5 71 18 111/61 (78) 99 98.5 06/22/18 09:12 208.4 64 18 97 06/22/18 09:00 Room Air Room Air 06/22/18 08:00 18 06/22/18 08:00 98.2 64 18 95/51 (66) 97 98.2 06/22/18 04:00 98.4 75 18 95/52 (66) 98 98.4 06/22/18 04:00 18 Intake and Output 06/21/18 06/22/18 19:00 07:00 Intake Total 1975 ml 1250 ml Output Total 2070 ml 20 ml Balance -95 ml 1230 ml Intake Oral 800 ml 500 ml IV Total 1175 ml 750 ml Output Urine Total 2000 ml Stool Total 0 ml Drainage Total 20 ml 20 ml Estimated Blood Loss 50 ml # Voids 2 4 Height (Feet): 6 Height (Inches): 3.00 Weight (Pounds): 173 Objective General: alert, cooperative, no distress, appears stated age Head: normocephalic, without obvious abnormality, atraumatic Eyes: conjunctivae/corneas clear. PERRL, EOM's intact Throat: lips, mucosa, and tongue normal. MMM Neck: supple, symmetrical, trachea midline, and no JVD Lungs: clear to auscultation bilaterally Heart: regular rate and rhythm, S1, S2 normal, no murmur, click, rub or gallop Abdomen: soft, non-tender, non-distended, bowel sounds normal; no masses or organomegaly Extremities: extremities normal, atraumatic, no cyanosis or edema Pulses: 2+ and symmetric Skin: dressing c/d/i Neurologic: grossly normal, no focal deficits Ronnell Zamudio M.D. Jun 22, 2018 23:23
[2018-06-23] MEDS: metroNIDAZOLE 500mg tab ORAL SCH ×3 (06:05→21:03)
--- NOTE | 2018-06-23 08:04 | General Progress Note ---
Assessment/Plan Assessment/Plan # Leukocytosis 2/2 infection/cellulitis is on abx as well as recent debridement --> Continue to monitor WBC for improvement, also post-op at this point, left groin surgery --> Current WBC 10-18.5k range, remains elevated --> JAK2 has been ordered/results pending (remain pending) # Hypercalcemia - with a protein - albumin gap, currently has improved, potentially related to dehydration initially --> spep and upep negative --> PTH and PTH-rp is negative as well at this time --> based on above, further w/u as needed # Anemia of chronic disease, in addition to iron deficiency component, hgb on admission was 10.0--> 9.1 --> Anemia w/u has been reviewed at this time. Will trend CBC as needed. --> Continue to monitor for stability --> Hgb goal above 7. Transfuse as needed on prn basis --> Blood tx: 2 units on 05/26 and at this time monitor # Thrombocytosis. Reactive process to anemia and will improve. --> if plt count >600k, likely related to reactive process, will r/o cml/ET/PV with Flynn 2 --> Continue to closely monitor for improvement # Hidradenitis with gluteal abscess/infection/cellulitis, open wound, draining purulent fluid. w/ now gluteal abscess s/p exiscion of Pil cyst on 06/18/18 --> signs of infection on labs (leukocytosis) --> Dr. Miller closely following --> surgery done 06/21/2018 # Hyponatremia. --> Likely secondary to hypovolemia The time the note was entered does not necessarily correspond to the time the patient was seen. Greatly appreciate consultation! Subjective Constitutional: Denies: no symptoms, chills, diaphoresis, fever, malaise, weakness, other HEENT: Denies: no symptoms, eye pain, blurred vision, tearing, double vision, ear pain, ear discharge, nose pain, nose congestion, throat pain, throat swelling, mouth pain, mouth swelling, other Cardiovascular: Denies: no symptoms, chest pain, edema, irregular heart rate, lightheadedness, palpitations, syncope, other Respiratory: Denies: no symptoms, cough, orthopnea, shortness of breath, SOB with excertion, SOB at rest, sputum, stridor, wheezing, other Gastrointestinal/Abdominal: Denies: no symptoms, abdomen distended, abdominal pain, black stools, tarry stools, blood in stool, constipated, diarrhea, difficulty swallowing, nausea, poor appetite, poor fluid intake, rectal bleeding , vomiting, other Genitourinary: Denies: no symptoms, burning, discharge, frequency, flank pain, hematuria, incontinence, pain, urgency, other Neurologic/Psychiatric: Denies: no symptoms, anxiety, depressed, emotional problems, headache, numbness, paresthesia, pre-existing deficit, seizure, tingling, tremors, weakness, other Endocrine: Denies: no symptoms, excessive sweating, flushing, intolerance to cold, intolerance to heat, increased hunger, increased thirst, increased urine, unexplained weight gain, unexplained weight loss, other Hematologic/Lymphatic: Denies: no symptoms, anemia, easy bleeding, easy bruising, other Allergies: Coded Allergies: VANCOMYCIN (Verified Adverse Reaction, Unknown, 05/23/18) breakouts and cheek Subjective recovering from surgery, today is very sleepy, in bed Objective Last 24 Hour Vital Signs Date Time Temp Pulse Resp B/P (MAP) Pulse Ox O2 Delivery O2 Flow Rate FiO2 06/22/18 21:00 Room Air Room Air 06/22/18 20:00 98.0 88 16 110/53 (72) 100 98.0 06/22/18 18:56 98.3 06/22/18 16:34 18 06/22/18 16:00 98.3 75 18 110/61 (77) 98 98.3 06/22/18 12:00 18 06/22/18 12:00 98.5 71 18 111/61 (78) 99 98.5 06/22/18 09:12 208.4 64 18 97 06/22/18 09:00 Room Air Room Air Intake and Output 06/22/18 06/23/18 19:00 07:00 Intake Total 825 ml 360 ml Output Total 1720 ml Balance -895 ml 360 ml Intake Oral 600 ml 360 ml IV Total 225 ml Output Urine Total 1700 ml Drainage Total 20 ml # Voids 5 2 Height (Feet): 6 Height (Inches): 3.00 Weight (Pounds): 173 General Appearance: alert EENT: TMs normal Neck: supple Cardiovascular: normal rate Respiratory/Chest: no respiratory distress Abdomen: soft Extremities: non-tender Edema: no edema noted Leg (L), no edema noted Leg (R) Edema: mild edema Neurologic: alert Skin: normal pigmentation Objective perirectal abscess noted on the anal canal area Chris Quick MD Jun 23, 2018 08:04
[2018-06-23] MEDS: Heparin 5000 units/ml inj SUBQ SCH ×2 (09:00→20:58)
[2018-06-23] MEDS: Zinc Sulfate 220mg cap ORAL SCH (09:27)
[2018-06-23] MEDS: Dronabinol 2.5mg Cap ORAL SCH ×2 (09:27→17:07)
[2018-06-23] MEDS: Lactobacillus-GG tablet ORAL SCH ×2 (09:27→17:07)
[2018-06-23] MEDS: Ascorbic Acid 500mg tab ORAL SCH ×2 (09:27→17:07)
[2018-06-23] MEDS: Levofloxacin 500mg tab ORAL SCH (09:28)
[2018-06-23] MEDS: HYDROcodone/Acetamin 10/325 tab ORAL PRN (09:28)
[2018-06-23] MEDS: Docusate 100mg cap ORAL SCH ×2 (09:28→17:07)
--- NOTE | 2018-06-23 09:49 | General Progress Note ---
Progress Note Progress Note Pt seen and examined. POD # 2 from [facility] flap closure of sacral wound. Doing well. On pain meds. Flaps look healthy and wounds closed. STEVEN drain with SS drainage. On PO abx for wound coverage. Continue STEVEN drain. MD TABATHA Iraheta AMIR Jun 23, 2018 09:49
[2018-06-23 12:00] VITALS: BP 117/65
--- NOTE | 2018-06-23 15:20 | Infectious Diseases Prog Note ---
"Assessment/Plan Assessment/Plan antibiotics : linezolid, levoquin, flagyl A 1. perirectal abscess with pseudomonas | enterococcus s/p Excision of sacral wound and pilonidal cyst | flap 2. Hidradenitis suppurativa 3, leucocytosis improving 4. anemia P 1. continue linezolid 2. continue levoquin, flagyl 3. will follow up cultures Subjective Constitutional: Denies: fever, chills Respiratory: Denies: shortness of breath, dry cough Gastrointestinal/Abdominal: Denies: nausea, vomiting, diarrhea Musculoskeletal: Reports: pain - decreasing Allergies: Coded Allergies: VANCOMYCIN (Verified Adverse Reaction, Unknown, 05/23/18) breakouts and cheek Objective Vital Signs Last 24 Hour Vital Signs Date Time Temp Pulse Resp B/P (MAP) Pulse Ox O2 Delivery O2 Flow Rate FiO2 06/23/18 12:00 98.1 86 18 117/65 (82) 99 98.1 06/23/18 09:00 Room Air Room Air 06/22/18 21:00 Room Air Room Air 06/22/18 20:00 98.0 88 16 110/53 (72) 100 98.0 06/22/18 18:56 98.3 06/22/18 16:34 18 06/22/18 16:00 98.3 75 18 110/61 (77) 98 98.3 Height (Feet): 6 Height (Inches): 3.00 Weight (Pounds): 173 Respiratory/Chest: lungs clear Cardiovascular: normal rate, regular rhythm, no gallop/murmur Abdomen: soft, non tender, other - back STEVEN drain Extremities: no edema Current Medications Medications (Trade) Dose Ordered Sig/Marcell Route PRN Reason Start Time Stop Time Status Last Admin Dose Admin Acetaminophen (Tylenol) 650 mg Q4H PRN ORAL Mild Pain/Temp > 100.5 06/16/18 21:00 07/16/18 20:59 Acetaminophen/ Hydrocodone Bitart ([place] 10/325) 1 tab Q4H PRN ORAL Severe Pain (Pain Scale 7-10) 06/22/18 16:30 06/29/18 16:29 06/23/18 09:28 Acetaminophen/ Hydrocodone Bitart ([place] 5/325) 1 tab Q4H PRN ORAL Moderate Pain (Pain Scale 4-6) 06/22/18 16:30 06/29/18 16:29 Ascorbic Acid (Vitamin C) 250 mg TWICE A DAY ORAL 06/17/18 09:00 07/17/18 08:59 06/23/18 09:27 Bisacodyl (Dulcolax) 10 mg DAILYPRN PRN RECTAL Constipation 06/16/18 21:00 07/16/18 20:59 Cetylpyridinium Chloride (Cepacol) 1 lozg Q2H PRN ORAL For Cough 06/16/18 21:45 07/16/18 21:44 06/23/18 09:28 Diphenhydramine HCl (Benadryl) 12.5 mg Q6H PRN IVP Itching/Pruritis 06/18/18 08:00 07/18/18 07:59 Docusate Sodium (Colace) 100 mg TWICE A DAY ORAL 06/17/18 09:00 07/17/18 08:59 06/23/18 09:28 Dronabinol (Marinol) 5 mg BID ORAL 06/17/18 09:00 07/17/18 08:59 06/23/18 09:27 Duloxetine HCl (Cymbalta) 20 mg DAILY ORAL 06/17/18 09:00 07/17/18 08:59 Heparin Sodium (Porcine) (Heparin 5000 units/ml) 5,000 units EVERY 12 HOURS SUBQ 06/21/18 13:00 07/21/18 12:59 Hydromorphone HCl (Dilaudid) 1 mg Q4H PRN SUBQ Breakthrough Pain 06/22/18 16:30 06/29/18 16:29 Lactobacillus Acidophilus (Culturelle) 1 tab TWICE A DAY ORAL 06/17/18 09:00 07/17/18 08:59 06/23/18 09:27 Levofloxacin (Levaquin) 500 mg DAILY ORAL 06/21/18 12:30 06/28/18 12:29 06/23/18 09:28 Linezolid (Zyvox) 600 mg EVERY 12 HOURS ORAL 06/21/18 21:00 06/26/18 20:59 06/23/18 09:27 Metronidazole (Flagyl) 500 mg Q8HR ORAL 06/21/18 14:00 06/28/18 13:59 06/23/18 14:01 Naloxone HCl (Narcan) 0.1 mg PRN IV . 06/22/18 16:00 07/22/18 15:59 Ondansetron HCl (Zofran) 4 mg Q6H PRN IVP Nausea & Vomiting 06/21/18 12:00 07/21/18 11:59 Polyethylene Glycol (Miralax) 17 gm DAILY PRN ORAL Constipation 06/17/18 09:00 07/17/18 08:59 Zinc Sulfate (Zinc Sulfate) 220 mg DAILY ORAL 06/17/18 09:00 07/17/18 08:59 06/23/18 09:27 JEANCARLOS DAS Jun 23, 2018 15:20"
[2018-06-23 16:00] VITALS: BP 113/67
--- NOTE | 2018-06-23 16:17 | General Progress Note ---
Assessment/Plan Problem List: (1) Perirectal abscess ICD Codes: K61.1 - Rectal abscess SNOMED: 43326721 (2) Sacral wound ICD Codes: S31.000A - Unspecified open wound of lower back and pelvis without penetration into retroperitoneum, initial encounter SNOMED: 330856002 (3) Sepsis ICD Codes: A41.9 - Sepsis, unspecified organism SNOMED: 42718678 (4) Hidradenitis suppurativa ICD Codes: L73.2 - Hidradenitis suppurativa SNOMED: 83060340 (5) Anemia due to acute blood loss ICD Codes: D62 - Acute posthemorrhagic anemia SNOMED: 961405737 (6) Pilonidal cyst ICD Codes: L05.91 - Pilonidal cyst without abscess SNOMED: 83202014 Status: stable Assessment/Plan Plastic surgery consulted, appreciate rec's s/p excision of sacral wound and pilonidal cyst on 06/18/18 s/p flap closure of sacral wound on 06/21/18 ID consulted, appreciate rec's Cont linezolid PO per ID Cont levaquin + flagyl per ID D/c zosyn F/u cultures--pseudomonas F/u repeat labs Wound care mIVFs Post operative recommendations include: - encourage mobilization/ambulation - encourage incentive spirometry to optimize pulmonary hygiene - DVT/GI prophylaxis as appropriate - pain control, supportive care, bowel regimen Plan for ARU ([facility]) likely on Mon 06/28 per plastics DVT Prophylaxis: SCD, HSQ Code Status: Full Hospital Classification Declaration: Based on this initial evaluation, and depending on the patient's clinical course, I anticipate that this patient will require hospitalization for 2-3 days for surgical mgmt, IV abx, and close respiratory/hemodynamic monitoring. Disposition: Once the patient is stable to leave the hospital, I anticipate the patient will likely be discharged to the following environment: back to ARU I spent 40 minutes on this patient's case, and 22 minutes were dedicated to counseling and/or care coordination. Discussed with patient/family, nursing staff, SW/CM, plastic surgery, ID regarding clinical status, treatment course, and disposition planning. Time of note may not reflect time of encounter. Subjective Date patient seen: Jun 23, 2018 Time patient seen: 16:17 ROS Limited/Unobtainable: No Constitutional: Reports: no symptoms HEENT: Reports: no symptoms Cardiovascular: Reports: no symptoms Respiratory: Reports: no symptoms Gastrointestinal/Abdominal: Reports: no symptoms Genitourinary: Reports: no symptoms Neurologic/Psychiatric: Reports: no symptoms Endocrine: Reports: no symptoms Hematologic/Lymphatic: Reports: no symptoms Allergies: Coded Allergies: VANCOMYCIN (Verified Adverse Reaction, Unknown, 05/23/18) breakouts and cheek All Systems: reviewed and negative except above Subjective No acute o/n events s/p excision of sacral wound and pilonidal cyst, POD#5 s/p flap clsoure of sacral wound, POD#2 WBC downtrending Refusing IV access Pt doing well. Pain controlled Objective Last 24 Hour Vital Signs Date Time Temp Pulse Resp B/P (MAP) Pulse Ox O2 Delivery O2 Flow Rate FiO2 06/23/18 12:00 98.1 86 18 117/65 (82) 99 98.1 06/23/18 09:00 Room Air Room Air 06/22/18 21:00 Room Air Room Air 06/22/18 20:00 98.0 88 16 110/53 (72) 100 98.0 06/22/18 18:56 98.3 06/22/18 16:34 18 Intake and Output 06/22/18 06/23/18 19:00 07:00 Intake Total 825 ml 360 ml Output Total 1720 ml Balance -895 ml 360 ml Intake Oral 600 ml 360 ml IV Total 225 ml Output Urine Total 1700 ml Drainage Total 20 ml # Voids 5 2 Height (Feet): 6 Height (Inches): 3.00 Weight (Pounds): 173 Objective General: alert, cooperative, no distress, appears stated age Head: normocephalic, without obvious abnormality, atraumatic Eyes: conjunctivae/corneas clear. PERRL, EOM's intact Throat: lips, mucosa, and tongue normal. MMM Neck: supple, symmetrical, trachea midline, and no JVD Lungs: clear to auscultation bilaterally Heart: regular rate and rhythm, S1, S2 normal, no murmur, click, rub or gallop Abdomen: soft, non-tender, non-distended, bowel sounds normal; no masses or organomegaly Extremities: extremities normal, atraumatic, no cyanosis or edema Pulses: 2+ and symmetric Skin: dressing c/d/i Neurologic: grossly normal, no focal deficits Ronnell Zamudio M.D. Jun 23, 2018 16:17
[2018-06-23 20:26] VITALS: BP 139/55
[2018-06-24] MEDS: metroNIDAZOLE 500mg tab ORAL SCH ×3 (05:42→20:57)
--- NOTE | 2018-06-24 07:17 | General Progress Note ---
Assessment/Plan Assessment/Plan # Leukocytosis 2/2 infection/cellulitis is on abx as well as recent debridement/ surgery --> Continue to monitor WBC for improvement, also post-op at this point, left groin surgery --> Current WBC 10-18.5k range, remains elevated --> JAK2 has been ordered/results pending (remain pending) # Hypercalcemia - with a protein - albumin gap, currently has improved, potentially related to dehydration initially --> spep and upep negative --> PTH and PTH-rp is negative as well at this time --> based on above, further w/u as needed # Anemia of chronic disease, in addition to iron deficiency component, hgb on admission was 10.0--> 9.1 --> Anemia w/u has been reviewed at this time. Will trend CBC as needed. --> Continue to monitor for stability --> Hgb goal above 7. Transfuse as needed on prn basis --> Blood tx: 2 units on 05/26 and at this time monitor # Thrombocytosis. Reactive process to anemia and will improve. --> if plt count >600k, likely related to reactive process, will r/o cml/ET/PV with Flynn 2 --> Continue to closely monitor for improvement # Hidradenitis with gluteal abscess/infection/cellulitis, open wound, draining purulent fluid. w/ now gluteal abscess s/p exiscion of Pil cyst on 06/18/18 --> signs of infection on labs (leukocytosis) --> Dr. Miller closely following --> surgery done 06/21/2018 # Hyponatremia. --> Likely secondary to hypovolemia The time the note was entered does not necessarily correspond to the time the patient was seen. Greatly appreciate consultation! Subjective Constitutional: Denies: no symptoms, chills, diaphoresis, fever, malaise, weakness, other HEENT: Denies: no symptoms, eye pain, blurred vision, tearing, double vision, ear pain, ear discharge, nose pain, nose congestion, throat pain, throat swelling, mouth pain, mouth swelling, other Cardiovascular: Denies: no symptoms, chest pain, edema, irregular heart rate, lightheadedness, palpitations, syncope, other Respiratory: Denies: no symptoms, cough, orthopnea, shortness of breath, SOB with excertion, SOB at rest, sputum, stridor, wheezing, other Gastrointestinal/Abdominal: Denies: no symptoms, abdomen distended, abdominal pain, black stools, tarry stools, blood in stool, constipated, diarrhea, difficulty swallowing, nausea, poor appetite, poor fluid intake, rectal bleeding , vomiting, other Genitourinary: Denies: no symptoms, burning, discharge, frequency, flank pain, hematuria, incontinence, pain, urgency, other Neurologic/Psychiatric: Denies: no symptoms, anxiety, depressed, emotional problems, headache, numbness, paresthesia, pre-existing deficit, seizure, tingling, tremors, weakness, other Endocrine: Denies: no symptoms, excessive sweating, flushing, intolerance to cold, intolerance to heat, increased hunger, increased thirst, increased urine, unexplained weight gain, unexplained weight loss, other Hematologic/Lymphatic: Denies: no symptoms, anemia, easy bleeding, easy bruising, other Allergies: Coded Allergies: VANCOMYCIN (Verified Adverse Reaction, Unknown, 05/23/18) breakouts and cheek Subjective today is very sleepy, in bed, oitherwise is comortable Objective Last 24 Hour Vital Signs Date Time Temp Pulse Resp B/P (MAP) Pulse Ox O2 Delivery O2 Flow Rate FiO2 06/23/18 21:00 Room Air Room Air 06/23/18 20:26 98.0 90 16 139/55 (83) 97 98.0 06/23/18 16:00 97.5 73 18 113/67 (82) 98 97.5 06/23/18 12:00 98.1 86 18 117/65 (82) 99 98.1 06/23/18 09:00 Room Air Room Air Intake and Output 06/23/18 06/24/18 19:00 07:00 Intake Total 800 ml 320 ml Output Total 35 ml Balance 765 ml 320 ml Intake Oral 800 ml 320 ml Drainage Total 35 ml # Voids 6 2 # Bowel Movements 1 Height (Feet): 6 Height (Inches): 3.00 Weight (Pounds): 173 General Appearance: alert EENT: PERRL/EOMI Neck: non-tender Cardiovascular: normal rate Respiratory/Chest: lungs clear Abdomen: soft Extremities: non-tender Edema: 1+ Leg (L), 1+ Leg (R) Neurologic: alert Skin: warm/dry Objective perirectal abscess noted on the anal canal area Chris Quick MD Jun 24, 2018 07:16
[2018-06-24] MEDS: Heparin 5000 units/ml inj SUBQ SCH ×2 (09:00→21:00)
[2018-06-24] MEDS: Zinc Sulfate 220mg cap ORAL SCH (09:24)
[2018-06-24] MEDS: Lactobacillus-GG tablet ORAL SCH ×2 (09:24→18:50)
[2018-06-24] MEDS: Dronabinol 2.5mg Cap ORAL SCH ×2 (09:24→18:50)
[2018-06-24] MEDS: Ascorbic Acid 500mg tab ORAL SCH ×2 (09:25→18:50)
[2018-06-24] MEDS: Docusate 100mg cap ORAL SCH ×2 (09:25→18:50)
[2018-06-24] MEDS: Levofloxacin 500mg tab ORAL SCH (09:25)
[2018-06-24 09:30] VITALS: BP 107/56
[2018-06-24 12:00] VITALS: BP 112/64
--- NOTE | 2018-06-24 14:18 | Infectious Diseases Prog Note ---
Assessment/Plan Assessment/Plan A 1. perirectal abscess s/p Excision of sacral wound and pilonidal cyst 2. Hidradenitis suppurativa 3, leucocytosis improving 4. anemia P 1. continue linezolid,Flagyl & Levaquin Subjective ROS Limited/Unobtainable: No Constitutional: Reports: no symptoms Respiratory: Reports: no symptoms Gastrointestinal/Abdominal: Reports: no symptoms Genitourinary: Reports: no symptoms Musculoskeletal: Reports: pain, other - controlled Allergies: Coded Allergies: VANCOMYCIN (Verified Adverse Reaction, Unknown, 05/23/18) breakouts and cheek Objective Vital Signs Last 24 Hour Vital Signs Date Time Temp Pulse Resp B/P (MAP) Pulse Ox O2 Delivery O2 Flow Rate FiO2 06/24/18 12:00 98.2 74 20 112/64 (80) 96 98.2 06/24/18 09:30 98.0 77 18 107/56 (73) 97 98.0 06/24/18 09:00 Room Air Room Air 06/23/18 21:00 Room Air Room Air 06/23/18 20:26 98.0 90 16 139/55 (83) 97 98.0 06/23/18 16:00 97.5 73 18 113/67 (82) 98 97.5 Height (Feet): 6 Height (Inches): 3.00 Weight (Pounds): 173 General Appearance: no acute distress HEENT: mucous membranes moist Respiratory/Chest: lungs clear Cardiovascular: normal rate Abdomen: soft, non tender Extremities: other - sacral wound dressing & surgical drain Neurologic/Psychiatric: alert, oriented x 3, responsive Current Medications Medications (Trade) Dose Ordered Sig/Marcell Route PRN Reason Start Time Stop Time Status Last Admin Dose Admin Acetaminophen (Tylenol) 650 mg Q4H PRN ORAL Mild Pain/Temp > 100.5 06/16/18 21:00 07/16/18 20:59 Acetaminophen/ Hydrocodone Bitart ([place] 10/325) 1 tab Q4H PRN ORAL Severe Pain (Pain Scale 7-10) 06/22/18 16:30 06/29/18 16:29 06/23/18 09:28 Acetaminophen/ Hydrocodone Bitart ([place] 5/325) 1 tab Q4H PRN ORAL Moderate Pain (Pain Scale 4-6) 06/22/18 16:30 06/29/18 16:29 Ascorbic Acid (Vitamin C) 250 mg TWICE A DAY ORAL 06/17/18 09:00 07/17/18 08:59 06/24/18 09:25 Bisacodyl (Dulcolax) 10 mg DAILYPRN PRN RECTAL Constipation 06/16/18 21:00 07/16/18 20:59 Cetylpyridinium Chloride (Cepacol) 1 lozg Q2H PRN ORAL For Cough 06/16/18 21:45 07/16/18 21:44 06/23/18 17:08 Diphenhydramine HCl (Benadryl) 12.5 mg Q6H PRN IVP Itching/Pruritis 06/18/18 08:00 07/18/18 07:59 Docusate Sodium (Colace) 100 mg TWICE A DAY ORAL 06/17/18 09:00 07/17/18 08:59 06/24/18 09:25 Dronabinol (Marinol) 5 mg BID ORAL 06/17/18 09:00 07/17/18 08:59 06/24/18 09:24 Duloxetine HCl (Cymbalta) 20 mg DAILY ORAL 06/17/18 09:00 07/17/18 08:59 Heparin Sodium (Porcine) (Heparin 5000 units/ml) 5,000 units EVERY 12 HOURS SUBQ 06/21/18 13:00 07/21/18 12:59 Hydromorphone HCl (Dilaudid) 1 mg Q4H PRN SUBQ Breakthrough Pain 06/22/18 16:30 06/29/18 16:29 Lactobacillus Acidophilus (Culturelle) 1 tab TWICE A DAY ORAL 06/17/18 09:00 07/17/18 08:59 06/24/18 09:24 Levofloxacin (Levaquin) 500 mg DAILY ORAL 06/21/18 12:30 06/28/18 12:29 06/24/18 09:25 Linezolid (Zyvox) 600 mg EVERY 12 HOURS ORAL 06/21/18 21:00 06/26/18 20:59 06/24/18 09:25 Metronidazole (Flagyl) 500 mg Q8HR ORAL 06/21/18 14:00 06/28/18 13:59 06/24/18 05:42 Naloxone HCl (Narcan) 0.1 mg PRN IV . 9/25/18 16:00 07/22/18 15:59 Ondansetron HCl (Zofran) 4 mg Q6H PRN IVP Nausea & Vomiting 06/21/18 12:00 07/21/18 11:59 Polyethylene Glycol (Miralax) 17 gm DAILY PRN ORAL Constipation 06/17/18 09:00 07/17/18 08:59 Zinc Sulfate (Zinc Sulfate) 220 mg DAILY ORAL 06/17/18 09:00 07/17/18 08:59 06/24/18 09:24 Koby Miner MD Jun 24, 2018 14:18
--- NOTE | 2018-06-24 14:46 | General Progress Note ---
Assessment/Plan Problem List: (1) Perirectal abscess ICD Codes: K61.1 - Rectal abscess SNOMED: 78182137 (2) Sacral wound ICD Codes: S31.000A - Unspecified open wound of lower back and pelvis without penetration into retroperitoneum, initial encounter SNOMED: 428930601 (3) Sepsis ICD Codes: A41.9 - Sepsis, unspecified organism SNOMED: 03949118 (4) Hidradenitis suppurativa ICD Codes: L73.2 - Hidradenitis suppurativa SNOMED: 33440037 (5) Anemia due to acute blood loss ICD Codes: D62 - Acute posthemorrhagic anemia SNOMED: 643167119 (6) Pilonidal cyst ICD Codes: L05.91 - Pilonidal cyst without abscess SNOMED: 48977017 Status: stable Assessment/Plan Plastic surgery consulted, appreciate rec's s/p excision of sacral wound and pilonidal cyst on 06/18/18 s/p flap closure of sacral wound on 06/21/18 ID consulted, appreciate rec's Cont linezolid PO per ID Cont levaquin + flagyl per ID D/c zosyn F/u cultures--pseudomonas F/u repeat labs Wound care mIVFs Post operative recommendations include: - encourage mobilization/ambulation - encourage incentive spirometry to optimize pulmonary hygiene - DVT/GI prophylaxis as appropriate - pain control, supportive care, bowel regimen Plan for ARU ([facility]) likely on Mon 06/28 per plastics DVT Prophylaxis: SCD, HSQ Code Status: Full Hospital Classification Declaration: Based on this initial evaluation, and depending on the patient's clinical course, I anticipate that this patient will require hospitalization for 1-2 days for surgical mgmt, IV abx, and close respiratory/hemodynamic monitoring. Disposition: Once the patient is stable to leave the hospital, I anticipate the patient will likely be discharged to the following environment: back to ARU I spent 40 minutes on this patient's case, and 22 minutes were dedicated to counseling and/or care coordination. Discussed with patient/family, nursing staff, SW/CM, plastic surgery, ID regarding clinical status, treatment course, and disposition planning. Time of note may not reflect time of encounter. Subjective Date patient seen: Jun 24, 2018 Time patient seen: 14:46 ROS Limited/Unobtainable: No Constitutional: Reports: no symptoms HEENT: Reports: no symptoms Cardiovascular: Reports: no symptoms Respiratory: Reports: no symptoms Gastrointestinal/Abdominal: Reports: no symptoms Genitourinary: Reports: no symptoms Neurologic/Psychiatric: Reports: no symptoms Endocrine: Reports: no symptoms Hematologic/Lymphatic: Reports: no symptoms Allergies: Coded Allergies: VANCOMYCIN (Verified Adverse Reaction, Unknown, 05/23/18) breakouts and cheek All Systems: reviewed and negative except above Subjective No acute o/n events s/p excision of sacral wound and pilonidal cyst, POD#6 s/p flap clsoure of sacral wound, POD#3 WBC downtrending Refusing IV access Pt doing well. Pain controlled Objective Last 24 Hour Vital Signs Date Time Temp Pulse Resp B/P (MAP) Pulse Ox O2 Delivery O2 Flow Rate FiO2 06/24/18 12:00 98.2 74 20 112/64 (80) 96 98.2 06/24/18 09:30 98.0 77 18 107/56 (73) 97 98.0 06/24/18 09:00 Room Air Room Air 06/23/18 21:00 Room Air Room Air 06/23/18 20:26 98.0 90 16 139/55 (83) 97 98.0 06/23/18 16:00 97.5 73 18 113/67 (82) 98 97.5 Intake and Output 06/23/18 06/24/18 19:00 07:00 Intake Total 800 ml 320 ml Output Total 35 ml 10 ml Balance 765 ml 310 ml Intake Oral 800 ml 320 ml Drainage Total 35 ml 10 ml # Voids 6 2 # Bowel Movements 1 Height (Feet): 6 Height (Inches): 3.00 Weight (Pounds): 173 Objective General: alert, cooperative, no distress, appears stated age Head: normocephalic, without obvious abnormality, atraumatic Eyes: conjunctivae/corneas clear. PERRL, EOM's intact Throat: lips, mucosa, and tongue normal. MMM Neck: supple, symmetrical, trachea midline, and no JVD Lungs: clear to auscultation bilaterally Heart: regular rate and rhythm, S1, S2 normal, no murmur, click, rub or gallop Abdomen: soft, non-tender, non-distended, bowel sounds normal; no masses or organomegaly Extremities: extremities normal, atraumatic, no cyanosis or edema Pulses: 2+ and symmetric Skin: dressing c/d/i Neurologic: grossly normal, no focal deficits Ronnell Zamudio M.D. Jun 24, 2018 14:46
[2018-06-24 16:00] VITALS: BP 118/69
[2018-06-24 20:00] VITALS: BP 105/59
[2018-06-25 04:00] VITALS: BP 94/46
--- NOTE | 2018-06-25 06:39 | General Progress Note ---
Assessment/Plan Assessment/Plan # Leukocytosis 2/2 infection/cellulitis is on abx as well as recent debridement/ surgery --> Continue to monitor WBC for improvement, also post-op at this point, left groin surgery --> Current WBC 10-18.5k range, remains elevated --> JAK2 has been ordered/results pending (remain pending) # Hypercalcemia - with a protein - albumin gap, currently has improved, potentially related to dehydration initially --> spep and upep negative --> PTH and PTH-rp is negative as well at this time --> based on above, further w/u as needed # Anemia of chronic disease, in addition to iron deficiency component, hgb on admission was 10.0--> 9.1 --> Anemia w/u has been reviewed at this time. Will trend CBC as needed. --> Continue to monitor for stability --> Hgb goal above 7. Transfuse as needed on prn basis --> Blood tx: 2 units on 05/26 and at this time monitor # Thrombocytosis. Reactive process to anemia and will improve. --> if plt count >600k, likely related to reactive process, will r/o cml/ET/PV with Flynn 2 --> Continue to closely monitor for improvement # Hidradenitis with gluteal abscess/infection/cellulitis, open wound, draining purulent fluid. w/ now gluteal abscess s/p exiscion of Pil cyst on 06/18/18 --> signs of infection on labs (leukocytosis) --> Dr. Miller closely following --> surgery done 06/21/2018 # Hyponatremia. --> Likely secondary to hypovolemia, now better The time the note was entered does not necessarily correspond to the time the patient was seen. Greatly appreciate consultation! Subjective Constitutional: Reports: no symptoms HEENT: Reports: no symptoms Cardiovascular: Reports: no symptoms Respiratory: Reports: no symptoms Gastrointestinal/Abdominal: Reports: no symptoms Genitourinary: Reports: no symptoms Neurologic/Psychiatric: Reports: no symptoms Endocrine: Reports: no symptoms Hematologic/Lymphatic: Reports: anemia Allergies: Coded Allergies: VANCOMYCIN (Verified Adverse Reaction, Unknown, 05/23/18) breakouts and cheek Subjective today is very sleepy, in bed, otherwise remains comfortable Objective Last 24 Hour Vital Signs Date Time Temp Pulse Resp B/P (MAP) Pulse Ox O2 Delivery O2 Flow Rate FiO2 06/25/18 04:00 97.4 81 18 94/46 (62) 100 97.4 06/24/18 21:00 Room Air Room Air 06/24/18 20:00 97.9 71 18 105/59 (74) 98 97.9 06/24/18 16:00 98.1 87 21 118/69 (85) 98 98.1 06/24/18 12:00 98.2 74 20 112/64 (80) 96 98.2 06/24/18 09:30 98.0 77 18 107/56 (73) 97 98.0 06/24/18 09:00 Room Air Room Air Intake and Output 06/24/18 06/25/18 19:00 07:00 Intake Total 860 ml Output Total 10 ml Balance 860 ml -10 ml Intake Oral 860 ml Drainage Total 10 ml # Voids 2 3 Height (Feet): 6 Height (Inches): 3.00 Weight (Pounds): 173 General Appearance: no apparent distress EENT: TMs normal Neck: supple Cardiovascular: regular rhythm Respiratory/Chest: normal breath sounds Abdomen: soft Extremities: non-tender Edema: no edema noted Leg (L), no edema noted Leg (R) Edema: mild edema Neurologic: alert Objective perirectal abscess noted on the anal canal area Chris Quick MD Jun 25, 2018 06:39
[2018-06-25] MEDS: metroNIDAZOLE 500mg tab ORAL SCH ×3 (07:51→21:03)
[2018-06-25] MEDS: Dronabinol 2.5mg Cap ORAL SCH ×2 (10:05→17:23)
[2018-06-25] MEDS: Zinc Sulfate 220mg cap ORAL SCH (10:06)
[2018-06-25] MEDS: Ascorbic Acid 500mg tab ORAL SCH ×2 (10:06→17:23)
[2018-06-25] MEDS: Levofloxacin 500mg tab ORAL SCH (10:06)
[2018-06-25] MEDS: Heparin 5000 units/ml inj SUBQ SCH ×2 (10:06→19:58)
[2018-06-25] MEDS: Docusate 100mg cap ORAL SCH ×3 (10:06→17:23)
[2018-06-25] MEDS: Lactobacillus-GG tablet ORAL SCH ×2 (10:06→17:23)
--- NOTE | 2018-06-25 10:27 | General Progress Note ---
Progress Note Progress Note Pt seen and examined. POD # 4 and doing well. Flaps look great. Will dd drain this weekend and plan for dc to rehab on Thursday. RENEA Martinez MD Jun 25, 2018 10:27
[2018-06-25 12:00] VITALS: BP 121/64
[2018-06-25 16:00] VITALS: BP 103/62
--- NOTE | 2018-06-25 18:38 | General Progress Note ---
Assessment/Plan Problem List: (1) Perirectal abscess ICD Codes: K61.1 - Rectal abscess SNOMED: 92920893 (2) Sacral wound ICD Codes: S31.000A - Unspecified open wound of lower back and pelvis without penetration into retroperitoneum, initial encounter SNOMED: 337202140 (3) Sepsis ICD Codes: A41.9 - Sepsis, unspecified organism SNOMED: 94383720 (4) Hidradenitis suppurativa ICD Codes: L73.2 - Hidradenitis suppurativa SNOMED: 29150241 (5) Anemia due to acute blood loss ICD Codes: D62 - Acute posthemorrhagic anemia SNOMED: 687620244 (6) Pilonidal cyst ICD Codes: L05.91 - Pilonidal cyst without abscess SNOMED: 74828043 Status: stable Assessment/Plan Plastic surgery consulted, appreciate rec's s/p excision of sacral wound and pilonidal cyst on 06/18/18 s/p flap closure of sacral wound on 06/21/18 ID consulted, appreciate rec's Cont linezolid PO per ID Cont levaquin + flagyl per ID D/c zosyn F/u cultures--pseudomonas F/u repeat labs Wound care mIVFs Post operative recommendations include: - encourage mobilization/ambulation - encourage incentive spirometry to optimize pulmonary hygiene - DVT/GI prophylaxis as appropriate - pain control, supportive care, bowel regimen Plan for ARU ([facility]) likely on Mon 06/28 per plastics DVT Prophylaxis: SCD, HSQ Code Status: Full Hospital Classification Declaration: Based on this initial evaluation, and depending on the patient's clinical course, I anticipate that this patient will require hospitalization for 1-2 days for surgical mgmt, IV abx, and close respiratory/hemodynamic monitoring. Disposition: Once the patient is stable to leave the hospital, I anticipate the patient will likely be discharged to the following environment: back to ARU I spent 40 minutes on this patient's case, and 22 minutes were dedicated to counseling and/or care coordination. Discussed with patient/family, nursing staff, SW/CM, plastic surgery, ID regarding clinical status, treatment course, and disposition planning. Time of note may not reflect time of encounter. Subjective Date patient seen: Jun 25, 2018 Time patient seen: 10:00 ROS Limited/Unobtainable: No Constitutional: Reports: no symptoms HEENT: Reports: no symptoms Cardiovascular: Reports: no symptoms Respiratory: Reports: no symptoms Gastrointestinal/Abdominal: Reports: no symptoms Genitourinary: Reports: no symptoms Neurologic/Psychiatric: Reports: no symptoms Endocrine: Reports: no symptoms Hematologic/Lymphatic: Reports: no symptoms Allergies: Coded Allergies: VANCOMYCIN (Verified Adverse Reaction, Unknown, 05/23/18) breakouts and cheek Subjective No acute o/n events s/p excision of sacral wound and pilonidal cyst, POD#7 s/p flap clsoure of sacral wound, POD#4 Refusing IV access Pt doing well. Pain controlled Objective Last 24 Hour Vital Signs Date Time Temp Pulse Resp B/P (MAP) Pulse Ox O2 Delivery O2 Flow Rate FiO2 06/25/18 16:00 98.0 80 20 103/62 (76) 100 98.0 06/25/18 12:00 97.6 85 20 121/64 (83) 100 97.6 06/25/18 08:40 Room Air Room Air 06/25/18 04:00 97.4 81 18 94/46 (62) 100 97.4 06/24/18 21:00 Room Air Room Air 06/24/18 20:00 97.9 71 18 105/59 (74) 98 97.9 Intake and Output 06/24/18 06/25/18 19:00 07:00 Intake Total 860 ml Output Total 10 ml Balance 860 ml -10 ml Intake Oral 860 ml Drainage Total 10 ml # Voids 2 3 Height (Feet): 6 Height (Inches): 3.00 Weight (Pounds): 173 Objective General: alert, cooperative, no distress, appears stated age Head: normocephalic, without obvious abnormality, atraumatic Eyes: conjunctivae/corneas clear. PERRL, EOM's intact Throat: lips, mucosa, and tongue normal. MMM Neck: supple, symmetrical, trachea midline, and no JVD Lungs: clear to auscultation bilaterally Heart: regular rate and rhythm, S1, S2 normal, no murmur, click, rub or gallop Abdomen: soft, non-tender, non-distended, bowel sounds normal; no masses or organomegaly Extremities: extremities normal, atraumatic, no cyanosis or edema Pulses: 2+ and symmetric Skin: dressing c/d/i Neurologic: grossly normal, no focal deficits Ronnell Zamudio M.D. Jun 25, 2018 18:38
[2018-06-25 20:00] VITALS: BP 97/55
[2018-06-26] MEDS: metroNIDAZOLE 500mg tab ORAL SCH ×3 (06:00→21:12)
[2018-06-26] MEDS: Heparin 5000 units/ml inj SUBQ SCH ×2 (09:00→20:23)
[2018-06-26] MEDS: Zinc Sulfate 220mg cap ORAL SCH (10:00)
[2018-06-26] MEDS: Docusate 100mg cap ORAL SCH ×2 (10:00→17:12)
[2018-06-26] MEDS: Ascorbic Acid 500mg tab ORAL SCH ×2 (10:01→17:13)
[2018-06-26] MEDS: Dronabinol 2.5mg Cap ORAL SCH ×2 (10:01→17:12)
[2018-06-26] MEDS: Levofloxacin 500mg tab ORAL SCH (10:01)
[2018-06-26] MEDS: Lactobacillus-GG tablet ORAL SCH ×2 (10:02→17:12)
--- NOTE | 2018-06-26 11:06 | Infectious Diseases Prog Note ---
"Assessment/Plan Assessment/Plan antibiotics : linezolid, levoquin, flagyl A 1. perirectal abscess with pseudomonas s/p Excision of sacral wound and pilonidal cyst | flap 2. Hidradenitis suppurativa 3, leucocytosis improving 4. anemia P 1. linezolid d/c 2. continue levoquin, flagyl 4 more days 3. will follow up cultures Subjective Constitutional: Denies: fever, chills Respiratory: Denies: shortness of breath, dry cough Gastrointestinal/Abdominal: Denies: nausea, vomiting, diarrhea Musculoskeletal: Reports: pain Allergies: Coded Allergies: VANCOMYCIN (Verified Adverse Reaction, Unknown, 05/23/18) breakouts and cheek Objective Vital Signs Last 24 Hour Vital Signs Date Time Temp Pulse Resp B/P (MAP) Pulse Ox O2 Delivery O2 Flow Rate FiO2 06/25/18 20:35 Room Air Room Air 06/25/18 20:00 98.0 77 18 97/55 (69) 98 98.0 06/25/18 16:00 98.0 80 20 103/62 (76) 100 98.0 06/25/18 12:00 97.6 85 20 121/64 (83) 100 97.6 Height (Feet): 6 Height (Inches): 3.00 Weight (Pounds): 173 Respiratory/Chest: lungs clear Cardiovascular: normal rate, regular rhythm, no gallop/murmur Abdomen: soft, non tender, other - buttock wound clean, STEVEN drain Current Medications Medications (Trade) Dose Ordered Sig/Marcell Route PRN Reason Start Time Stop Time Status Last Admin Dose Admin Acetaminophen (Tylenol) 650 mg Q4H PRN ORAL Mild Pain/Temp > 100.5 06/16/18 21:00 07/16/18 20:59 Acetaminophen/ Hydrocodone Bitart ([place] 10/325) 1 tab Q4H PRN ORAL Severe Pain (Pain Scale 7-10) 06/22/18 16:30 06/29/18 16:29 06/23/18 09:28 Acetaminophen/ Hydrocodone Bitart ([place] 5/325) 1 tab Q4H PRN ORAL Moderate Pain (Pain Scale 4-6) 06/22/18 16:30 06/29/18 16:29 Ascorbic Acid (Vitamin C) 250 mg TWICE A DAY ORAL 06/17/18 09:00 07/17/18 08:59 06/26/18 10:01 Bisacodyl (Dulcolax) 10 mg DAILYPRN PRN RECTAL Constipation 06/16/18 21:00 07/16/18 20:59 Cetylpyridinium Chloride (Cepacol) 1 lozg Q2H PRN ORAL For Cough 06/16/18 21:45 07/16/18 21:44 06/23/18 17:08 Diphenhydramine HCl (Benadryl) 12.5 mg Q6H PRN IVP Itching/Pruritis 06/18/18 08:00 07/18/18 07:59 Docusate Sodium (Colace) 100 mg TWICE A DAY ORAL 06/17/18 09:00 07/17/18 08:59 06/26/18 10:00 Dronabinol (Marinol) 5 mg BID ORAL 06/17/18 09:00 07/17/18 08:59 06/26/18 10:01 Duloxetine HCl (Cymbalta) 20 mg DAILY ORAL 06/17/18 09:00 07/17/18 08:59 06/26/18 10:00 Heparin Sodium (Porcine) (Heparin 5000 units/ml) 5,000 units EVERY 12 HOURS SUBQ 06/21/18 13:00 07/21/18 12:59 Hydromorphone HCl (Dilaudid) 1 mg Q4H PRN SUBQ Breakthrough Pain 06/22/18 16:30 06/29/18 16:29 Lactobacillus Acidophilus (Culturelle) 1 tab TWICE A DAY ORAL 06/17/18 09:00 07/17/18 08:59 06/26/18 10:02 Levofloxacin (Levaquin) 500 mg DAILY ORAL 06/21/18 12:30 06/28/18 23:59 06/26/18 10:01 Metronidazole (Flagyl) 500 mg Q8HR ORAL 06/21/18 14:00 06/28/18 23:59 06/25/18 21:03 Naloxone HCl (Narcan) 0.1 mg PRN IV . 06/22/18 16:00 07/22/18 15:59 Ondansetron HCl (Zofran) 4 mg Q6H PRN IVP Nausea & Vomiting 06/21/18 12:00 07/21/18 11:59 Polyethylene Glycol (Miralax) 17 gm DAILY PRN ORAL Constipation 06/17/18 09:00 07/17/18 08:59 Zinc Sulfate (Zinc Sulfate) 220 mg DAILY ORAL 06/17/18 09:00 07/17/18 08:59 06/26/18 10:00 JEANCARLOS DAS Jun 26, 2018 11:06"
[2018-06-26 11:20] VITALS: BP 108/50
--- NOTE | 2018-06-26 14:11 | General Progress Note ---
Assessment/Plan Assessment/Plan # Leukocytosis 2/2 infection/cellulitis is on abx as well as recent debridement/ surgery, currently has improved --> Continue to monitor WBC for improvement, also post-op at this point, left groin surgery --> Current WBC 10-18.5k range, remains elevated --> JAK2 has been ordered/results pending (remain pending) # Hypercalcemia - with a protein - albumin gap, currently has improved, potentially related to dehydration initially --> spep and upep negative --> PTH and PTH-rp is negative as well at this time --> repeat lab, cmp ordered # Anemia of chronic disease, in addition to iron deficiency component, hgb on admission was 10.0--> 9.1 --> Anemia w/u has been reviewed at this time. Will trend CBC as needed. --> Continue to monitor for stability --> Hgb goal above 7. Transfuse as needed on prn basis --> Blood tx: 2 units on 05/26 and at this time monitor # Thrombocytosis. Reactive process to anemia and will improve. --> if plt count >600k, likely related to reactive process, will r/o cml/ET/PV with Flynn 2 --> Continue to closely monitor for improvement # Hidradenitis with gluteal abscess/infection/cellulitis, open wound, draining purulent fluid. w/ now gluteal abscess s/p exiscion of Pil cyst on 06/18/18 --> signs of infection on labs (leukocytosis) --> Dr. Miller closely following --> surgery done 06/21/2018 # Hyponatremia. --> Likely secondary to hypovolemia, now better The time the note was entered does not necessarily correspond to the time the patient was seen. Greatly appreciate consultation! Subjective Constitutional: Reports: no symptoms HEENT: Reports: no symptoms Cardiovascular: Reports: no symptoms Respiratory: Reports: no symptoms Gastrointestinal/Abdominal: Reports: vomiting Genitourinary: Reports: no symptoms Neurologic/Psychiatric: Reports: no symptoms Endocrine: Reports: no symptoms Hematologic/Lymphatic: Reports: anemia Allergies: Coded Allergies: VANCOMYCIN (Verified Adverse Reaction, Unknown, 05/23/18) breakouts and cheek Subjective today is very sleepy, in bed, on levquin and flagyl Objective Last 24 Hour Vital Signs Date Time Temp Pulse Resp B/P (MAP) Pulse Ox O2 Delivery O2 Flow Rate FiO2 06/26/18 11:20 97.8 80 22 108/50 (69) 97 97.8 06/26/18 09:00 Room Air Room Air 06/25/18 20:35 Room Air Room Air 06/25/18 20:00 98.0 77 18 97/55 (69) 98 98.0 06/25/18 16:00 98.0 80 20 103/62 (76) 100 98.0 Intake and Output 06/25/18 06/26/18 19:00 07:00 Intake Total 620 ml Output Total 10 ml 675 ml Balance 610 ml -675 ml Intake Oral 620 ml Output Urine Total 675 ml Drainage Total 10 ml # Voids 2 # Bowel Movements 2 Height (Feet): 6 Height (Inches): 3.00 Weight (Pounds): 173 General Appearance: alert EENT: normal ENT inspection Neck: normal inspection Cardiovascular: regular rhythm Respiratory/Chest: lungs clear Abdomen: non tender Extremities: normal range of motion Edema: 1+ Leg (L); no edema noted Leg (R) Edema: mild edema Neurologic: alert Skin: warm/dry Objective perirectal abscess noted on the anal canal area Chris Quick MD Jun 26, 2018 14:11
[2018-06-26 16:00] VITALS: BP 92/60
--- NOTE | 2018-06-26 19:41 | General Progress Note ---
Assessment/Plan Status: doing well Assessment/Plan Hidradenitis suppurativa with perirectal abscess with pseudomonas s/p excision of sacral wound and pilonidal cyst s/p flap closure on 06/21, plan to continue Levaquin and Flagyl per ID recs. Can stop Zyvox. Continue with wound care. Continue other supportive measures include pain control and appetite stimulants. Plan for discharge to [facility] on Thursday. Anemia, stable counts, can repeat as outpatient. VTE PPx heparin SC Subjective Date patient seen: Jun 26, 2018 Time patient seen: 17:45 Constitutional: Denies: chills Cardiovascular: Denies: chest pain Respiratory: Denies: cough Gastrointestinal/Abdominal: Denies: abdominal pain Hematologic/Lymphatic: Denies: easy bleeding Allergies: Coded Allergies: VANCOMYCIN (Verified Adverse Reaction, Unknown, 05/23/18) breakouts and cheek Subjective Medicine followup for management of hidradenitis suppurtiva with abscess formation, pilonidal cyst s/p resection. He feels well, denies significant pain. Is seen ambulating on the unit. No new complaints, tolerating antibiotics well. Objective Last 24 Hour Vital Signs Date Time Temp Pulse Resp B/P (MAP) Pulse Ox O2 Delivery O2 Flow Rate FiO2 06/26/18 16:00 98.4 88 18 92/60 (71) 98 98.4 06/26/18 11:20 97.8 80 22 108/50 (69) 97 97.8 06/26/18 09:00 Room Air Room Air 06/25/18 20:35 Room Air Room Air 06/25/18 20:00 98.0 77 18 97/55 (69) 98 98.0 Intake and Output 06/25/18 06/26/18 19:00 07:00 Intake Total 620 ml Output Total 10 ml 675 ml Balance 610 ml -675 ml Intake Oral 620 ml Output Urine Total 675 ml Drainage Total 10 ml # Voids 2 # Bowel Movements 2 Height (Feet): 6 Height (Inches): 3.00 Weight (Pounds): 173 General Appearance: no apparent distress, alert Neck: supple, normal inspection Cardiovascular: normal rate, regular rhythm Respiratory/Chest: lungs clear, normal breath sounds Extremities: normal range of motion, non-tender Carlo Lindsay MD Jun 26, 2018 19:41
[2018-06-26 20:00] VITALS: BP 96/66
[2018-06-27] MEDS: metroNIDAZOLE 500mg tab ORAL SCH ×3 (06:09→21:02)
[2018-06-27 08:00] VITALS: BP 115/66
[2018-06-27] MEDS: Heparin 5000 units/ml inj SUBQ SCH ×2 (09:00→20:42)
--- NOTE | 2018-06-27 09:15 | General Progress Note ---
Progress Note Progress Note Pt seen and examined. POD# 6 from flap closure of sacral wounds. Looks well and draind Dced. Dc to rehab tomorrow. MD TABATHA Iraheta AMIR Jun 27, 2018 09:15
[2018-06-27] MEDS: Docusate 100mg cap ORAL SCH ×2 (10:45→17:33)
[2018-06-27] MEDS: Levofloxacin 500mg tab ORAL SCH (10:45)
[2018-06-27] MEDS: Lactobacillus-GG tablet ORAL SCH ×2 (10:45→17:32)
[2018-06-27] MEDS: Zinc Sulfate 220mg cap ORAL SCH (10:45)
[2018-06-27] MEDS: Dronabinol 2.5mg Cap ORAL SCH ×2 (10:46→17:33)
[2018-06-27] MEDS: Ascorbic Acid 500mg tab ORAL SCH ×2 (10:46→17:33)
--- NOTE | 2018-06-27 11:10 | Infectious Diseases Prog Note ---
Assessment/Plan Assessment/Plan A 1. perirectal abscess s/p Excision of sacral wound and pilonidal cyst 2. Hidradenitis suppurativa 3, leucocytosis improving 4. anemia P 1. continue Flagyl & Levaquin X 2 days Subjective ROS Limited/Unobtainable: No Constitutional: Reports: no symptoms Respiratory: Reports: no symptoms Gastrointestinal/Abdominal: Reports: no symptoms Genitourinary: Reports: no symptoms Musculoskeletal: Reports: no symptoms Allergies: Coded Allergies: VANCOMYCIN (Verified Adverse Reaction, Unknown, 05/23/18) breakouts and cheek Objective Vital Signs Last 24 Hour Vital Signs Date Time Temp Pulse Resp B/P (MAP) Pulse Ox O2 Delivery O2 Flow Rate FiO2 06/27/18 09:00 Room Air Room Air 06/27/18 08:00 97.7 64 18 115/66 (82) 100 97.7 06/26/18 21:00 Room Air Room Air 06/26/18 20:00 97.9 71 17 96/66 (76) 100 97.9 06/26/18 16:00 98.4 88 18 92/60 (71) 98 98.4 06/26/18 11:20 97.8 80 22 108/50 (69) 97 97.8 Height (Feet): 6 Height (Inches): 3.00 Weight (Pounds): 173 General Appearance: no acute distress HEENT: mucous membranes moist Respiratory/Chest: lungs clear Cardiovascular: normal rate Abdomen: soft, non tender Extremities: no edema Skin: other - sacral skin graft Neurologic/Psychiatric: alert, oriented x 3, responsive Current Medications Medications (Trade) Dose Ordered Sig/Marcell Route PRN Reason Start Time Stop Time Status Last Admin Dose Admin Acetaminophen (Tylenol) 650 mg Q4H PRN ORAL Mild Pain/Temp > 100.5 06/16/18 21:00 07/16/18 20:59 Acetaminophen/ Hydrocodone Bitart ([place] 10/325) 1 tab Q4H PRN ORAL Severe Pain (Pain Scale 7-10) 06/22/18 16:30 06/29/18 16:29 06/23/18 09:28 Acetaminophen/ Hydrocodone Bitart ([place] 5/325) 1 tab Q4H PRN ORAL Moderate Pain (Pain Scale 4-6) 06/22/18 16:30 06/29/18 16:29 Ascorbic Acid (Vitamin C) 250 mg TWICE A DAY ORAL 06/17/18 09:00 07/17/18 08:59 06/27/18 10:46 Bisacodyl (Dulcolax) 10 mg DAILYPRN PRN RECTAL Constipation 06/16/18 21:00 07/16/18 20:59 Cetylpyridinium Chloride (Cepacol) 1 lozg Q2H PRN ORAL For Cough 06/16/18 21:45 07/16/18 21:44 06/23/18 17:08 Diphenhydramine HCl (Benadryl) 12.5 mg Q6H PRN IVP Itching/Pruritis 06/18/18 08:00 07/18/18 07:59 Docusate Sodium (Colace) 100 mg TWICE A DAY ORAL 06/17/18 09:00 07/17/18 08:59 06/27/18 10:45 Dronabinol (Marinol) 5 mg BID ORAL 06/17/18 09:00 07/17/18 08:59 06/27/18 10:46 Duloxetine HCl (Cymbalta) 20 mg DAILY ORAL 06/17/18 09:00 07/17/18 08:59 06/26/18 10:00 Heparin Sodium (Porcine) (Heparin 5000 units/ml) 5,000 units EVERY 12 HOURS SUBQ 06/21/18 13:00 07/21/18 12:59 Hydromorphone HCl (Dilaudid) 1 mg Q4H PRN SUBQ Breakthrough Pain 06/22/18 16:30 06/29/18 16:29 Lactobacillus Acidophilus (Culturelle) 1 tab TWICE A DAY ORAL 06/17/18 09:00 07/17/18 08:59 06/27/18 10:45 Levofloxacin (Levaquin) 500 mg DAILY ORAL 06/27/18 09:00 07/04/18 20:29 06/27/18 10:45 Metronidazole (Flagyl) 500 mg Q8HR ORAL 06/26/18 14:00 07/03/18 23:59 06/27/18 06:09 Naloxone HCl (Narcan) 0.1 mg PRN IV . 06/22/18 16:00 07/22/18 15:59 Ondansetron HCl (Zofran) 4 mg Q6H PRN IVP Nausea & Vomiting 06/21/18 12:00 07/21/18 11:59 Polyethylene Glycol (Miralax) 17 gm DAILY PRN ORAL Constipation 06/17/18 09:00 07/17/18 08:59 Zinc Sulfate (Zinc Sulfate) 220 mg DAILY ORAL 06/17/18 09:00 07/17/18 08:59 06/27/18 10:45 Koby Miner MD Jun 27, 2018 11:10
[2018-06-27 12:00] VITALS: BP 116/53
--- NOTE | 2018-06-27 14:20 | General Progress Note ---
Assessment/Plan Assessment/Plan # Leukocytosis 2/2 infection/cellulitis is on abx as well as recent debridement/ surgery, currently has improved --> Continue to monitor WBC for improvement, also post-op at this point, left groin surgery --> Current WBC 10-18.5k range, remains elevated --> JAK2 has been ordered/results pending --> antibiotics as per ID --> he has continued to refuse labs # Hypercalcemia - with a protein - albumin gap, currently has improved, potentially related to dehydration initially --> spep and upep negative --> PTH and PTH-rp is negative as well at this time --> repeat lab, cmp ordered # Anemia of chronic disease, in addition to iron deficiency component, hgb on admission was 10.0--> 9.1 --> Anemia w/u has been reviewed at this time. Will trend CBC as needed. --> Continue to monitor for stability --> Hgb goal above 7. Transfuse as needed on prn basis --> Blood tx: 2 units on 05/26 and at this time monitor # Thrombocytosis. Reactive process to anemia and will improve. --> if plt count >600k, likely related to reactive process, will r/o cml/ET/PV with Flynn 2 --> Continue to closely monitor for improvement # Hidradenitis with gluteal abscess/infection/cellulitis, open wound, draining purulent fluid. w/ now gluteal abscess s/p exiscion of Pil cyst on 06/18/18 --> signs of infection on labs (leukocytosis) --> Dr. Miller closely following --> surgery done 06/21/2018 # Hyponatremia. --> Likely secondary to hypovolemia, now better The time the note was entered does not necessarily correspond to the time the patient was seen. Greatly appreciate consultation! Subjective Constitutional: Denies: no symptoms, chills, diaphoresis, fever, malaise, weakness, other HEENT: Denies: no symptoms, eye pain, blurred vision, tearing, double vision, ear pain, ear discharge, nose pain, nose congestion, throat pain, throat swelling, mouth pain, mouth swelling, other Cardiovascular: Denies: no symptoms, chest pain, edema, irregular heart rate, lightheadedness, palpitations, syncope, other Respiratory: Denies: no symptoms, cough, orthopnea, shortness of breath, SOB with excertion, SOB at rest, sputum, stridor, wheezing, other Genitourinary: Denies: no symptoms, burning, discharge, frequency, flank pain, hematuria, incontinence, pain, urgency, other Neurologic/Psychiatric: Denies: no symptoms, anxiety, depressed, emotional problems, headache, numbness, paresthesia, pre-existing deficit, seizure, tingling, tremors, weakness, other Endocrine: Denies: no symptoms, excessive sweating, flushing, intolerance to cold, intolerance to heat, increased hunger, increased thirst, increased urine, unexplained weight gain, unexplained weight loss, other Hematologic/Lymphatic: Denies: no symptoms, anemia, easy bleeding, easy bruising, other Allergies: Coded Allergies: VANCOMYCIN (Verified Adverse Reaction, Unknown, 05/23/18) breakouts and cheek Subjective today is very sleepy, in bed, on levquin and flagyl, wants to go home and dc rehab Objective Last 24 Hour Vital Signs Date Time Temp Pulse Resp B/P (MAP) Pulse Ox O2 Delivery O2 Flow Rate FiO2 06/27/18 12:00 97.8 82 18 116/53 (74) 98 97.8 06/27/18 09:00 Room Air Room Air 06/27/18 08:00 97.7 64 18 115/66 (82) 100 97.7 06/26/18 21:00 Room Air Room Air 06/26/18 20:00 97.9 71 17 96/66 (76) 100 97.9 06/26/18 16:00 98.4 88 18 92/60 (71) 98 98.4 Intake and Output 06/26/18 06/27/18 19:00 07:00 Intake Total 500 ml 550 ml Output Total 3 ml 5 ml Balance 497 ml 545 ml Intake Oral 500 ml 550 ml Drainage Total 3 ml 5 ml # Voids 4 # Bowel Movements 1 Height (Feet): 6 Height (Inches): 3.00 Weight (Pounds): 173 General Appearance: alert EENT: TMs normal Neck: supple Cardiovascular: regular rhythm Respiratory/Chest: lungs clear Abdomen: non tender Extremities: non-tender Edema: 1+ Leg (L), 1+ Leg (R) Edema: mild edema Neurologic: responsive Skin: warm/dry - flap buttocks closure very well Objective perirectal abscess noted on the anal canal area Chris Quick MD Jun 27, 2018 14:20
--- NOTE | 2018-06-27 14:59 | General Progress Note ---
Assessment/Plan Status: doing well Assessment/Plan Hidradenitis suppurativa with perirectal abscess with pseudomonas s/p excision of sacral wound and pilonidal cyst s/p flap closure on 06/21, drain removed today , case discussed with surgery who feels he is healing well. Will continue Levaquin and Flagyl per ID recs. Zyvox stopped. Continue with wound care. Continue other supportive measures include pain control and appetite stimulants. Plan for discharge to [facility] tomorrow Anemia, stable counts, can repeat as outpatient. VTE PPx heparin SC Subjective Date patient seen: Jun 27, 2018 Time patient seen: 14:56 ROS Limited/Unobtainable: No Constitutional: Denies: fever Cardiovascular: Denies: chest pain Respiratory: Denies: cough Genitourinary: Denies: burning Hematologic/Lymphatic: Denies: easy bleeding Allergies: Coded Allergies: VANCOMYCIN (Verified Adverse Reaction, Unknown, 05/23/18) breakouts and cheek Subjective Medicine followup for management of hidradenitis suppurativa with abscess formation, pilonidal cyst s/p resection. He continues to feel well, ambulating around the unit. Surgery removed the drain today. Objective Last 24 Hour Vital Signs Date Time Temp Pulse Resp B/P (MAP) Pulse Ox O2 Delivery O2 Flow Rate FiO2 06/27/18 12:00 97.8 82 18 116/53 (74) 98 97.8 06/27/18 09:00 Room Air Room Air 06/27/18 08:00 97.7 64 18 115/66 (82) 100 97.7 06/26/18 21:00 Room Air Room Air 06/26/18 20:00 97.9 71 17 96/66 (76) 100 97.9 06/26/18 16:00 98.4 88 18 92/60 (71) 98 98.4 Intake and Output 06/26/18 06/27/18 19:00 07:00 Intake Total 500 ml 550 ml Output Total 3 ml 5 ml Balance 497 ml 545 ml Intake Oral 500 ml 550 ml Drainage Total 3 ml 5 ml # Voids 4 # Bowel Movements 1 Height (Feet): 6 Height (Inches): 3.00 Weight (Pounds): 173 Neck: supple Cardiovascular: normal rate, regular rhythm Respiratory/Chest: lungs clear, normal breath sounds Abdomen: non tender, soft Molazadeh-Yazdi,Carlo MD Jun 27, 2018 14:59
[2018-06-27 16:00] VITALS: BP 130/72
[2018-06-27 20:00] VITALS: BP 123/62
[2018-06-28] MEDS: metroNIDAZOLE 500mg tab ORAL SCH ×3 (06:05→22:15)
--- NOTE | 2018-06-28 07:03 | General Progress Note ---
Assessment/Plan Assessment/Plan # Leukocytosis 2/2 infection/cellulitis is on abx as well as recent debridement/ surgery, currently has improved --> Continue to monitor WBC for improvement, also post-op at this point, left groin surgery --> Current WBC 10-18.5k range, remains elevated --> JAK2 has been ordered/results pending --> antibiotics as per ID --> he has continued to refuse labs --> asked him again today 06/28 and he refused lab draw # Hypercalcemia - with a protein - albumin gap, currently has improved, potentially related to dehydration initially --> spep and upep negative --> PTH and PTH-rp is negative as well at this time --> repeat lab, cmp ordered # Anemia of chronic disease, in addition to iron deficiency component, hgb on admission was 10.0--> 9.1 --> Anemia w/u has been reviewed at this time. Will trend CBC as needed. --> Continue to monitor for stability --> Hgb goal above 7. Transfuse as needed on prn basis --> Blood tx: 2 units on 05/26 and at this time monitor # Thrombocytosis. Reactive process to anemia and will improve. --> if plt count >600k, likely related to reactive process, will r/o cml/ET/PV with Flynn 2 --> Continue to closely monitor for improvement # Hidradenitis with gluteal abscess/infection/cellulitis, open wound, draining purulent fluid. w/ now gluteal abscess s/p exiscion of Pil cyst on 06/18/18 --> signs of infection on labs (leukocytosis) --> Dr. Miller closely following --> surgery done 06/21/2018 # Hyponatremia. --> likely secondary to hypovolemia, now better The time the note was entered does not necessarily correspond to the time the patient was seen. Greatly appreciate consultation! Subjective Constitutional: Denies: no symptoms, chills, diaphoresis, fever, malaise, weakness, other HEENT: Denies: no symptoms, eye pain, blurred vision, tearing, double vision, ear pain, ear discharge, nose pain, nose congestion, throat pain, throat swelling, mouth pain, mouth swelling, other Cardiovascular: Denies: no symptoms, chest pain, edema, irregular heart rate, lightheadedness, palpitations, syncope, other Respiratory: Denies: no symptoms, cough, orthopnea, shortness of breath, SOB with excertion, SOB at rest, sputum, stridor, wheezing, other Gastrointestinal/Abdominal: Denies: no symptoms, abdomen distended, abdominal pain, black stools, tarry stools, blood in stool, constipated, diarrhea, difficulty swallowing, nausea, poor appetite, poor fluid intake, rectal bleeding , vomiting, other Genitourinary: Denies: no symptoms, burning, discharge, frequency, flank pain, hematuria, incontinence, pain, urgency, other Neurologic/Psychiatric: Denies: no symptoms, anxiety, depressed, emotional problems, headache, numbness, paresthesia, pre-existing deficit, seizure, tingling, tremors, weakness, other Endocrine: Denies: no symptoms, excessive sweating, flushing, intolerance to cold, intolerance to heat, increased hunger, increased thirst, increased urine, unexplained weight gain, unexplained weight loss, other Hematologic/Lymphatic: Denies: no symptoms, anemia, easy bleeding, easy bruising, other Allergies: Coded Allergies: VANCOMYCIN (Verified Adverse Reaction, Unknown, 05/23/18) breakouts and cheek Subjective d/c home today, feeling better Objective Last 24 Hour Vital Signs Date Time Temp Pulse Resp B/P (MAP) Pulse Ox O2 Delivery O2 Flow Rate FiO2 06/27/18 21:00 Room Air Room Air 06/27/18 20:00 97.9 84 16 123/62 (82) 98 97.9 06/27/18 16:00 97.9 70 18 130/72 (91) 100 97.9 06/27/18 12:00 97.8 82 18 116/53 (74) 98 97.8 06/27/18 09:00 Room Air Room Air 06/27/18 08:00 97.7 64 18 115/66 (82) 100 97.7 Intake and Output 06/27/18 06/28/18 19:00 07:00 Intake Total 400 ml 600 ml Balance 400 ml 600 ml Intake Oral 400 ml 600 ml # Voids 3 4 Height (Feet): 6 Height (Inches): 3.00 Weight (Pounds): 173 General Appearance: no apparent distress EENT: TMs normal Neck: supple Cardiovascular: normal rate Respiratory/Chest: normal breath sounds Abdomen: non tender Extremities: non-tender Edema: 1+ Leg (L), 1+ Leg (R) Edema: mild edema Neurologic: oriented x 3 Skin: warm/dry Objective perirectal abscess noted on the anal canal area Chris Quick MD Jun 28, 2018 07:03
[2018-06-28] MEDS: Heparin 5000 units/ml inj SUBQ SCH ×2 (09:00→21:00)
[2018-06-28] MEDS: Levofloxacin 500mg tab ORAL SCH (09:19)
[2018-06-28] MEDS: Docusate 100mg cap ORAL SCH ×2 (09:19→17:48)
[2018-06-28 09:30] VITALS: BP 140/71
[2018-06-28] MEDS: Zinc Sulfate 220mg cap ORAL SCH (09:53)
[2018-06-28] MEDS: Lactobacillus-GG tablet ORAL SCH ×2 (09:53→17:48)
[2018-06-28] MEDS: Dronabinol 2.5mg Cap ORAL SCH ×2 (09:54→17:48)
[2018-06-28] MEDS: Ascorbic Acid 500mg tab ORAL SCH ×2 (09:54→17:48)
[2018-06-28 12:00] VITALS: BP 107/52
--- NOTE | 2018-06-28 12:25 | Infectious Diseases Prog Note ---
Assessment/Plan Assessment/Plan A 1. perirectal abscess s/p Excision of sacral wound and pilonidal cyst 2. Hidradenitis suppurativa 3, leucocytosis improving 4. anemia P 1. continue Flagyl & Levaquin X 1 day Subjective ROS Limited/Unobtainable: No Respiratory: Reports: no symptoms Cardiovascular: Reports: no symptoms Gastrointestinal/Abdominal: Reports: no symptoms Musculoskeletal: Reports: no symptoms Allergies: Coded Allergies: VANCOMYCIN (Verified Adverse Reaction, Unknown, 05/23/18) breakouts and cheek Objective Vital Signs Last 24 Hour Vital Signs Date Time Temp Pulse Resp B/P (MAP) Pulse Ox O2 Delivery O2 Flow Rate FiO2 06/28/18 09:30 97.0 96 20 140/71 (94) 93 97.0 06/28/18 08:59 Room Air Room Air 06/27/18 21:00 Room Air Room Air 06/27/18 20:00 97.9 84 16 123/62 (82) 98 97.9 06/27/18 16:00 97.9 70 18 130/72 (91) 100 97.9 Height (Feet): 6 Height (Inches): 3.00 Weight (Pounds): 173 General Appearance: no acute distress HEENT: mucous membranes moist Respiratory/Chest: lungs clear Cardiovascular: normal rate Abdomen: soft, non tender Skin: other - sacral skin graft Neurologic/Psychiatric: alert, oriented x 3, responsive Current Medications Medications (Trade) Dose Ordered Sig/Marcell Route PRN Reason Start Time Stop Time Status Last Admin Dose Admin Acetaminophen (Tylenol) 650 mg Q4H PRN ORAL Mild Pain/Temp > 100.5 06/16/18 21:00 07/16/18 20:59 Acetaminophen/ Hydrocodone Bitart ([place] 10/325) 1 tab Q4H PRN ORAL Severe Pain (Pain Scale 7-10) 06/22/18 16:30 06/29/18 16:29 06/23/18 09:28 Acetaminophen/ Hydrocodone Bitart ([place] 5/325) 1 tab Q4H PRN ORAL Moderate Pain (Pain Scale 4-6) 06/22/18 16:30 06/29/18 16:29 Ascorbic Acid (Vitamin C) 250 mg TWICE A DAY ORAL 06/17/18 09:00 07/17/18 08:59 06/28/18 09:54 Bisacodyl (Dulcolax) 10 mg DAILYPRN PRN RECTAL Constipation 06/16/18 21:00 07/16/18 20:59 Cetylpyridinium Chloride (Cepacol) 1 lozg Q2H PRN ORAL For Cough 06/16/18 21:45 07/16/18 21:44 06/23/18 17:08 Diphenhydramine HCl (Benadryl) 12.5 mg Q6H PRN IVP Itching/Pruritis 06/18/18 08:00 07/18/18 07:59 Docusate Sodium (Colace) 100 mg TWICE A DAY ORAL 06/17/18 09:00 07/17/18 08:59 06/28/18 09:19 Dronabinol (Marinol) 5 mg BID ORAL 06/17/18 09:00 07/17/18 08:59 06/28/18 09:54 Duloxetine HCl (Cymbalta) 20 mg DAILY ORAL 06/17/18 09:00 07/17/18 08:59 06/26/18 10:00 Heparin Sodium (Porcine) (Heparin 5000 units/ml) 5,000 units EVERY 12 HOURS SUBQ 06/21/18 13:00 07/21/18 12:59 Hydromorphone HCl (Dilaudid) 1 mg Q4H PRN SUBQ Breakthrough Pain 06/22/18 16:30 06/29/18 16:29 Lactobacillus Acidophilus (Culturelle) 1 tab TWICE A DAY ORAL 06/17/18 09:00 07/17/18 08:59 06/28/18 09:53 Levofloxacin (Levaquin) 500 mg DAILY ORAL 06/27/18 09:00 07/04/18 20:29 06/28/18 09:19 Metronidazole (Flagyl) 500 mg Q8HR ORAL 06/26/18 14:00 07/03/18 23:59 06/28/18 06:05 Naloxone HCl (Narcan) 0.1 mg PRN IV . 06/22/18 16:00 07/22/18 15:59 Ondansetron HCl (Zofran) 4 mg Q6H PRN IVP Nausea & Vomiting 06/21/18 12:00 07/21/18 11:59 Polyethylene Glycol (Miralax) 17 gm DAILY PRN ORAL Constipation 06/17/18 09:00 07/17/18 08:59 Zinc Sulfate (Zinc Sulfate) 220 mg DAILY ORAL 06/17/18 09:00 07/17/18 08:59 06/28/18 09:53 Koby Miner MD Jun 28, 2018 12:25
[2018-06-28] MEDS ORDERED: MARINOL2.5 MG ORAL (14:40)
[2018-06-28] MEDS ORDERED: ZINC SULFATE220 M1 ORAL (14:40)
[2018-06-28] MEDS ORDERED: NORCO 5-325 TA1 EACH ORAL (14:40)
[2018-06-28] MEDS ORDERED: CYMBALTA20 MG ORAL (14:40)
[2018-06-28] MEDS ORDERED: CULTURELLE1 EACH ORAL (14:40)
[2018-06-28] MEDS ORDERED: LEVAQUIN500 MG ORAL (14:40)
[2018-06-28] MEDS ORDERED: HYDROcodone/Acetamin 10/325 ORAL (14:40)
[2018-06-28] MEDS ORDERED: ASCORBIC ACID500 M4 ORAL (14:40)
[2018-06-28] MEDS ORDERED: FLAGYL500 MG ORAL (14:40)
[2018-06-28] MEDS ORDERED: BISAC-EVAC10 MG RECTAL (14:40)
[2018-06-28] MEDS ORDERED: DOK100 M1 ORAL (14:40)
--- NOTE | 2018-06-28 14:52 | Discharge Summary ---
Discharge Summary Hospital Course Date of Admission Jun 16, 2018 at 19:48 Date of Discharge 06/28/18 Admitting Diagnosis Sepsis due to perirectal abscess Reason for Hospitalization: Sepsis due to perirectal abscess HPI Adán Amezcua is a 38 year old male who was admitted on Jun 16, 2018 at 19: 48 for Sepsis / Abscess Consultations Plastic Surgery ID Hematology Hospital Course 38 year old male with history of hidradenitis suppurative s/p stage 1 debridement of bilateral groin wound 05/24/18 s/p revision and closure of bilateral groin wounds with skin grafts on 05/27/18 who presented from ARU with concern for perirectal abscess with fever and leukocytosis along with perirectal pain and CT findings of abscess formation. He was admitted to the medical service, treated with broad spectrum antibiotics seen by Dr. Dixon of Plastic surgery, underwent wound debridement and excision pilonidal cyst on , s/p flap closure of sacral wound on 06/21/18. Wound culture growing Pseudomonas and antibiotics have been narrowed to Levaquin and Flagyl which he completes on 06/29. He will be discharged back to [facility] in good condition, will follow up with Dr. Dixon as outpatient. Time spent preparing discharge was 45 minutes which includes time spent coordinating care with nursing and consultants, discussing hospital course and discharge instructions with the patient. Discharge Medications New Medications: Ascorbic Acid* (Ascorbic Acid*) 500 Mg Tablet 250 MG ORAL TWICE A DAY for 14 Days, #28 TAB Bisacodyl (Bisac-Evac) 10 Mg Supp.rect 10 MG RECTAL DAILYPRN PRN for 14 Days, #28 SUPP Docusate Sodium (Dok) 100 Mg Capsule 100 MG ORAL TWICE A DAY for 14 Days, #28 CAP Dronabinol* (Marinol*) 2.5 Mg Capsule 5 MG ORAL BID for 14 Days, CAP Duloxetine (Cymbalta) 20 Mg Capsule.dr 20 MG ORAL DAILY for 14 Days, #14 CAP Hydrocodone Bit/Acetaminophen 5-325* ([place] 5-325*) 1 Each Tablet 1 TAB ORAL Q4H PRN for 3 Days, #20 TAB [HYDROcodone/Acetamin 10/325] () 1 TAB TAB 1 TAB ORAL Q4H PRN for 3 Days, #20 TAB Lactobacillus Rhamnosus Gg* (Culturelle*) 1 Each Capsule 1 TAB ORAL TWICE A DAY for 30 Days, #60 CAP Levofloxacin* (Levaquin*) 500 Mg Tablet 500 MG ORAL DAILY for 1 Day, #1 TAB Metronidazole* (Flagyl*) 500 Mg Tablet 500 MG ORAL Q8HR for 1 Day, #3 TAB Zinc Sulfate (Zinc Sulfate*) 220 Mg Capsule 220 MG ORAL DAILY for 30 Days, #30 CAP Continued Medications: Acetaminophen* (Acetaminophen 325MG Tablet*) 325 Mg Tablet 650 MG ORAL Q4H PRN for Mild Pain/Temp > 100.5, TAB (This prescription has been renewed) Amoxicillin/Potassium Clav 875-125* (Augmentin 875-125 Tablet*) 1 Each Tablet 1 TAB ORAL TWICE A DAY, TAB (This prescription has been renewed) Docusate Sodium* (Docusate Sodium*) 100 Mg Capsule 100 MG ORAL TWICE A DAY PRN for Constipation, CAP (This prescription has been renewed) Doxycycline Hyclate (Doxycycline Hyclate) 100 Mg Tablet 100 MG PO, TAB (This prescription has been renewed) Discharge Condition Upon Discharge: improving Discharge Disposition Patient was discharged to acute rehab Discharge Diagnoses: (1) Sepsis (2) Perirectal abscess (3) Hidradenitis suppurativa (4) Anemia due to acute blood loss Carlo Lindsay MD Jun 28, 2018 14:52
[2018-06-28 16:00] VITALS: BP 106/55
[2018-06-28 20:35] VITALS: BP 95/61
[2018-06-29] MEDS: metroNIDAZOLE 500mg tab ORAL SCH (06:06)
[2018-06-29 06:29] VITALS: BP 113/58
--- NOTE | 2018-06-29 07:31 | General Progress Note ---
Assessment/Plan Assessment/Plan # Leukocytosis 2/2 infection/cellulitis is on abx as well as recent debridement/ surgery, currently has improved --> Continue to monitor WBC for improvement, also post-op at this point, left groin surgery --> Current WBC 10-18.5k range, remains elevated --> JAK2 has been ordered/results pending --> antibiotics as per ID --> he has continued to refuse labs --> refused lab draw # Hypercalcemia - with a protein - albumin gap, currently has improved, potentially related to dehydration initially --> spep and upep negative --> PTH and PTH-rp is negative as well at this time --> repeat lab, cmp ordered # Anemia of chronic disease, in addition to iron deficiency component, hgb on admission was 10.0--> 9.1 --> Anemia w/u has been reviewed at this time. --> Will trend CBC as needed. --> Continue to monitor for stability --> Hgb goal above 7. Transfuse as needed on prn basis --> Blood tx: 2 units on 05/26 and at this time monitor # Thrombocytosis. Reactive process to anemia and will improve. --> if plt count >600k, likely related to reactive process, will r/o cml/ET/PV with Flynn 2 --> Continue to closely monitor for improvement # Hidradenitis with gluteal abscess/infection/cellulitis, open wound, draining purulent fluid. w/ now gluteal abscess s/p exiscion of Pil cyst on 06/18/18 --> signs of infection on labs (leukocytosis) --> Dr. Miller closely following --> surgery done 06/21/2018 # Hyponatremia. --> likely secondary to hypovolemia, now better The time the note was entered does not necessarily correspond to the time the patient was seen. Greatly appreciate consultation! Subjective Constitutional: Denies: no symptoms, chills, diaphoresis, fever, malaise, weakness, other HEENT: Denies: no symptoms, eye pain, blurred vision, tearing, double vision, ear pain, ear discharge, nose pain, nose congestion, throat pain, throat swelling, mouth pain, mouth swelling, other Cardiovascular: Denies: no symptoms, chest pain, edema, irregular heart rate, lightheadedness, palpitations, syncope, other Respiratory: Denies: no symptoms, cough, orthopnea, shortness of breath, SOB with excertion, SOB at rest, sputum, stridor, wheezing, other Gastrointestinal/Abdominal: Denies: no symptoms, abdomen distended, abdominal pain, black stools, tarry stools, blood in stool, constipated, diarrhea, difficulty swallowing, nausea, poor appetite, poor fluid intake, rectal bleeding , vomiting, other Genitourinary: Denies: no symptoms, burning, discharge, frequency, flank pain, hematuria, incontinence, pain, urgency, other Neurologic/Psychiatric: Denies: no symptoms, anxiety, depressed, emotional problems, headache, numbness, paresthesia, pre-existing deficit, seizure, tingling, tremors, weakness, other Endocrine: Denies: no symptoms, excessive sweating, flushing, intolerance to cold, intolerance to heat, increased hunger, increased thirst, increased urine, unexplained weight gain, unexplained weight loss, other Hematologic/Lymphatic: Denies: no symptoms, anemia, easy bleeding, easy bruising, other Allergies: Coded Allergies: VANCOMYCIN (Verified Adverse Reaction, Unknown, 05/23/18) breakouts and cheek Subjective d/c home today, feeling better, no fevers Objective Last 24 Hour Vital Signs Date Time Temp Pulse Resp B/P (MAP) Pulse Ox O2 Delivery O2 Flow Rate FiO2 06/29/18 06:29 98.4 61 17 113/58 (76) 96 98.4 06/28/18 21:00 Room Air Room Air 06/28/18 20:35 98.2 94 16 95/61 (72) 97 98.2 06/28/18 16:00 98.0 89 20 106/55 (72) 99 98.0 06/28/18 12:00 98.2 96 20 107/52 (70) 100 98.2 06/28/18 09:30 97.0 96 20 140/71 (94) 93 97.0 06/28/18 08:59 Room Air Room Air Intake and Output 06/28/18 06/29/18 19:00 07:00 Intake Total 1100 ml 480 ml Balance 1100 ml 480 ml Intake Oral 1100 ml 480 ml # Voids 3 2 # Bowel Movements 1 Height (Feet): 6 Height (Inches): 3.00 Weight (Pounds): 173 General Appearance: no apparent distress EENT: normal ENT inspection Neck: supple Respiratory/Chest: lungs clear Abdomen: soft Extremities: non-tender Edema: no edema noted Leg (L), no edema noted Leg (R) Edema: trace edema Neurologic: alert Skin: warm/dry Objective perirectal abscess noted on the anal canal area Chris Quick MD Jun 29, 2018 07:31
[2018-06-29 08:00] VITALS: BP 114/77
[2018-06-29] MEDS: Levofloxacin 500mg tab ORAL SCH (08:43)
[2018-06-29] MEDS: Docusate 100mg cap ORAL SCH ×2 (08:43→17:51)
[2018-06-29] MEDS: Heparin 5000 units/ml inj SUBQ SCH ×2 (09:00→21:00)
[2018-06-29] MEDS: Zinc Sulfate 220mg cap ORAL SCH (10:33)
[2018-06-29] MEDS: Dronabinol 2.5mg Cap ORAL SCH ×2 (10:33→17:51)
[2018-06-29] MEDS: Lactobacillus-GG tablet ORAL SCH ×2 (10:33→17:51)
[2018-06-29] MEDS: Ascorbic Acid 500mg tab ORAL SCH ×2 (10:34→17:51)
--- NOTE | 2018-06-29 11:16 | Infectious Diseases Prog Note ---
"Assessment/Plan Assessment/Plan antibiotics : levoquin, flagyl A 1. perirectal abscess with pseudomonas s/p Excision of sacral wound and pilonidal cyst | flap 2. Hidradenitis suppurativa 3, leucocytosis improving 4. anemia P 1. d/c levoquin, flagyl 2. observe off antibiotics Subjective Constitutional: Denies: fever, chills Respiratory: Denies: shortness of breath, dry cough Gastrointestinal/Abdominal: Denies: nausea, vomiting, diarrhea Musculoskeletal: Reports: pain - decreased Allergies: Coded Allergies: VANCOMYCIN (Verified Adverse Reaction, Unknown, 05/23/18) breakouts and cheek Objective Vital Signs Last 24 Hour Vital Signs Date Time Temp Pulse Resp B/P (MAP) Pulse Ox O2 Delivery O2 Flow Rate FiO2 06/29/18 08:00 97.6 113 18 114/77 (89) 97 97.6 06/29/18 06:29 98.4 61 17 113/58 (76) 96 98.4 06/28/18 21:00 Room Air Room Air 06/28/18 20:35 98.2 94 16 95/61 (72) 97 98.2 06/28/18 16:00 98.0 89 20 106/55 (72) 99 98.0 06/28/18 12:00 98.2 96 20 107/52 (70) 100 98.2 Height (Feet): 6 Height (Inches): 3.00 Weight (Pounds): 173 Respiratory/Chest: lungs clear Cardiovascular: normal rate, regular rhythm, no gallop/murmur Abdomen: soft, non tender, other - right buttock wound clean Extremities: no edema Current Medications Medications (Trade) Dose Ordered Sig/Marcell Route PRN Reason Start Time Stop Time Status Last Admin Dose Admin Acetaminophen (Tylenol) 650 mg Q4H PRN ORAL Mild Pain/Temp > 100.5 06/16/18 21:00 07/16/18 20:59 Acetaminophen/ Hydrocodone Bitart ([place] 10/325) 1 tab Q4H PRN ORAL Severe Pain (Pain Scale 7-10) 06/22/18 16:30 06/29/18 16:29 06/23/18 09:28 Acetaminophen/ Hydrocodone Bitart ([place] 5/325) 1 tab Q4H PRN ORAL Moderate Pain (Pain Scale 4-6) 06/22/18 16:30 06/29/18 16:29 Ascorbic Acid (Vitamin C) 250 mg TWICE A DAY ORAL 06/17/18 09:00 07/17/18 08:59 06/29/18 10:34 Bisacodyl (Dulcolax) 10 mg DAILYPRN PRN RECTAL Constipation 06/16/18 21:00 07/16/18 20:59 Cetylpyridinium Chloride (Cepacol) 1 lozg Q2H PRN ORAL For Cough 06/16/18 21:45 07/16/18 21:44 06/23/18 17:08 Diphenhydramine HCl (Benadryl) 12.5 mg Q6H PRN IVP Itching/Pruritis 06/18/18 08:00 07/18/18 07:59 Docusate Sodium (Colace) 100 mg TWICE A DAY ORAL 06/17/18 09:00 07/17/18 08:59 06/29/18 08:43 Dronabinol (Marinol) 5 mg BID ORAL 06/17/18 09:00 07/17/18 08:59 06/29/18 10:33 Duloxetine HCl (Cymbalta) 20 mg DAILY ORAL 06/17/18 09:00 07/17/18 08:59 06/26/18 10:00 Heparin Sodium (Porcine) (Heparin 5000 units/ml) 5,000 units EVERY 12 HOURS SUBQ 06/21/18 13:00 07/21/18 12:59 Hydromorphone HCl (Dilaudid) 1 mg Q4H PRN SUBQ Breakthrough Pain 06/22/18 16:30 06/29/18 16:29 Lactobacillus Acidophilus (Culturelle) 1 tab TWICE A DAY ORAL 06/17/18 09:00 07/17/18 08:59 06/29/18 10:33 Levofloxacin (Levaquin) 500 mg DAILY ORAL 06/27/18 09:00 07/04/18 20:29 06/29/18 08:43 Metronidazole (Flagyl) 500 mg Q8HR ORAL 06/26/18 14:00 07/03/18 23:59 06/29/18 06:06 Naloxone HCl (Narcan) 0.1 mg PRN IV . 06/22/18 16:00 07/22/18 15:59 Ondansetron HCl (Zofran) 4 mg Q6H PRN IVP Nausea & Vomiting 06/21/18 12:00 07/21/18 11:59 Polyethylene Glycol (Miralax) 17 gm DAILY PRN ORAL Constipation 06/17/18 09:00 07/17/18 08:59 Zinc Sulfate (Zinc Sulfate) 220 mg DAILY ORAL 06/17/18 09:00 07/17/18 08:59 06/29/18 10:33 JEANCARLOS DAS Jun 29, 2018 11:16"
[2018-06-29 16:00] VITALS: BP 107/71
--- NOTE | 2018-06-29 19:36 | General Progress Note ---
Assessment/Plan Status: doing well Assessment/Plan Hidradenitis suppurativa with perirectal abscess with pseudomonas s/p excision of sacral wound and pilonidal cyst s/p flap closure on 06/21, STEVEN drain removed, antibiotics completed today, patient is ambulating independently and now felt not to require ARU. Anticipate discharge home in next 24-48 hours. Case discussed with primary RN and Dr. Dixon Anemia, stable counts, follow up with hematology as outpatient. VTE PPx heparin SC Subjective Date patient seen: Jun 29, 2018 Time patient seen: 10:00 ROS Limited/Unobtainable: No Constitutional: Denies: chills, fever Cardiovascular: Denies: chest pain Respiratory: Denies: cough Gastrointestinal/Abdominal: Denies: abdominal pain Hematologic/Lymphatic: Denies: easy bleeding Allergies: Coded Allergies: VANCOMYCIN (Verified Adverse Reaction, Unknown, 05/23/18) breakouts and cheek Subjective Medicine followup for management of hidradenitis suppurativa with abscess formation, pilonidal cyst s/p resection. Continues to feel well, no new complaints. Objective Last 24 Hour Vital Signs Date Time Temp Pulse Resp B/P (MAP) Pulse Ox O2 Delivery O2 Flow Rate FiO2 06/29/18 16:00 98.1 79 19 107/71 (83) 100 98.1 06/29/18 09:00 Room Air Room Air 06/29/18 08:00 97.6 113 18 114/77 (89) 97 97.6 06/29/18 06:29 98.4 61 17 113/58 (76) 96 98.4 06/28/18 21:00 Room Air Room Air 06/28/18 20:35 98.2 94 16 95/61 (72) 97 98.2 Intake and Output 06/28/18 06/29/18 19:00 07:00 Intake Total 1100 ml 480 ml Balance 1100 ml 480 ml Intake Oral 1100 ml 480 ml # Voids 3 2 # Bowel Movements 1 Height (Feet): 6 Height (Inches): 3.00 Weight (Pounds): 173 General Appearance: no apparent distress, alert Cardiovascular: normal rate, regular rhythm Respiratory/Chest: lungs clear, normal breath sounds Abdomen: non tender, soft Carlo Lindsay MD Jun 29, 2018 19:36
[2018-06-29 20:00] VITALS: BP 107/49
[2018-06-30] MEDS ORDERED: Norco 5mg/325mg tab ORAL SCH (05:00)
[2018-06-30 05:50] VITALS: BP 115/74
--- NOTE | 2018-07-02 15:53 | Cardiology Report ---
APPROVED REPORT EKG Measurement Heart [id number] Unusual P axis, possible ectopic atrial rhythm Right superior axis deviation Inferior infarct, age undetermined Abnormal ECG
== END 2018-06-30 06:15 | disposition home or self-care (01) | DRG 854 ==
LOC: 4E 19:48 → 3E 22:20
PROC: 0JB90ZZ Excision of Buttock Subcutaneous Tissue and Fascia, Open Approach (ICD-10-PCS; principal; 2018-06-18 07:30)
PROC: 0JB70ZZ Excision of Back Subcutaneous Tissue and Fascia, Open Approach (ICD-10-PCS; principal; 2018-06-18 07:30)
PROC: 0JX70ZC Transfer Back Subcutaneous Tissue and Fascia with Skin, Subcutaneous Tissue and Fascia, Open Approach (ICD-10-PCS; 2018-06-21)
PROC: 0JD70ZZ Extraction of Back Subcutaneous Tissue and Fascia, Open Approach (ICD-10-PCS; 2018-06-21)
DX: A41.9 Sepsis, unspecified organism (principal); K61.1 Rectal abscess; L05.01 Pilonidal cyst with abscess; D62 Acute posthemorrhagic anemia; E87.1 Hypo-osmolality and hyponatremia; L73.2 Hidradenitis suppurativa; E83.52 Hypercalcemia; D47.3 Essential (hemorrhagic) thrombocythemia; E86.0 Dehydration; B96.5 Pseudomonas (aeruginosa) (mallei) (pseudomallei) as the cause of diseases classified elsewhere
CPT/HCPCS: 36415; 71045; 80053; 81050; 81270; 82248; 82270; 82607; 82728; 82746; 83090; 83540; 83550; 83615; 83735; 83970; 84165; 84550; 85007; 85025; 85044; 85060; 85610; 85660; 85730; 87040; 87070; 87075; 87081; 87181; 87205; 93005; 94003; 94150; J2250; J2405; J2710